=== PATIENT | female | born 2000 | race Caucasian/White ===

== ENCOUNTER 2023-10-04 14:51 | Outpatient (OUT) | payer OTHER, SELFPAY ==
--- NOTE | 2023-10-04 15:00 | XR_ITS ---
The [address] [address] Patient Name: BARON JONES MRN: [id number] date: 2000 Sex: F Assigned Patient Location: [facility] Current Patient Location: Accession/Order Number: [id number] Exam Date: 10/04/2023 15:05 Report Date: 10/06/2023 06:30 At the request of: CRISTI BARNETT Procedure: XR foot LT min 3V PROCEDURE: XR foot LT min 3V HISTORY: Cellulitis L03.90 COMPARISON: None. FINDINGS: BONES:No fracture, acute abnormality, or significant arthropathy. SOFT TISSUES:Mild distal dorsal soft tissue swelling. EFFUSION:None visible. OTHER: Negative. XR/XR foot LT min 3V IMPRESSION: 1. Mild soft tissue swelling of uncertain etiology. 2. No acute or suspicious bone abnormality. Electronically authenticated by: ARMANDO SCHMITT Date: 10/06/2023 06:30
== END 2023-10-04 14:52 | disposition home or self-care (01) ==
LOC: RAD 14:55
PROVIDERS: PCP Family Medicine; Visit Provider Family Medicine
DX: L03.90 Cellulitis, unspecified (principal)
CPT/HCPCS: 73630

== ENCOUNTER 2023-11-10 10:12 | Outpatient (OUT) | payer OTHER, SELFPAY ==
--- NOTE | 2023-11-10 10:17 | XR_ITS ---
The [address] [address] Patient Name: BARON JONES MRN: [id number] date: 2000 Sex: F Assigned Patient Location: [facility] Current Patient Location: Accession/Order Number: [id number] Exam Date: 11/10/2023 10:20 Report Date: 11/12/2023 03:15 At the request of: CRISTI BARNETT Procedure: XR foot RT 2V EXAM: XR foot RT 2V HISTORY: Right Foot Pain M79.671 COMPARISON: None. TECHNIQUE: AP and lateral right foot x-rays. FINDINGS: No acute osseous, articular or soft tissue abnormality is seen. Bony mineralization is normal. There is no degenerative change, inflammatory arthropathy, soft tissue gas or foreign body. There is a nonspecific 1.2 cm sclerotic lesion in the first distal phalanx which appears nonaggressive and may reflect a bone island or other benign lesion. There is developmental fusion of the middle and distal phalanges of the fifth toe, a normal variant. XR/XR foot RT 2V IMPRESSION: No acute right foot findings. Electronically authenticated by: SAROJ ADAMS Date: 11/12/2023 03:15
== END 2023-11-10 10:13 | disposition home or self-care (01) ==
LOC: RAD 10:12
PROVIDERS: PCP Family Medicine; Visit Provider Family Medicine
DX: M79.671 Pain in right foot (principal)
CPT/HCPCS: 73620

== ENCOUNTER 2023-11-11 21:44 | Emergency (ER) | payer OTHER, SELFPAY ==
--- OUTSIDE RECORDS SUMMARY | 2023-11-11 21:59 | XMS_ITS | CCD ---
Author Organization [facility] Care Team Providers Care Appointment Setter Name Role Phone No, Physician Unavailable Unavailable NO, PHYSICIAN Unavailable Unavailable MILAGROS LIU Unavailable Unavailab le NO, PHYSICIAN Unavailable Unavailable SAROJ HARRIS Unavailable Unavaila ble Unavailable Primary Care Provider UnavailOSMANI Simmons Attending Unavailable Cristi Esteban MD Primary Care Provider VITA BALLESTEROS Attending Unavailable CRISTI ESTEBAN Primary Care Unavailable VITA BALLESTEROS Referring Unavailable CRISTI ESTEBAN Referring Unavailable CRISTI ESTEBAN Primary Care Unavailable VITA BALLESTEROS Attending Unavailable Cristi Esteban MD Primary Care Provider BRANDI MCNEILL Attending Unavailable CRISTI ESTEBAN Primary Care Unavailable ANIBAL Rush, DR COLIN Admitting Unavailable ANIBAL ., DR COLIN Primary Care Unavailable ANIBAL ., DR COLIN Consulting Unavailable ANIBAL ., DR COLIN Attending Unavailable ANIBAL ., DR COLIN Primary Care Unavailable ANIBAL Rush, DR COLIN Consulting Unavailable ANIBAL ., DR COLIN Attending Unavailable ANIBAL ., DR COLIN Admitting Unavailable DR ARMANDO SCHMITT Consulting Unavailable ISAC SETH Attending Unavailable CRISTI ESTEBAN Primary Care Unavailable WILY Knott Attending Unavailable WILY Knott Admitting Unavailable Allergies Allergy Classification Reported Allergen(s) Allergy Type Date of Onset Reaction(s) Facility (6 sources) Cephalexin; Translations: [CEPHALEXIN] Drug Allergy 8 Unknown [facility] (1 source) No Known Medication Allergies; Translations: [No Known Medication Allergies] Propensity to adverse reactions to drug (disorder) [facility] Repository Medications Current Medications Medication Drug Class(es) Dates Sig (Normalized) Sig (Original) diclofenac sodium 75 mg delayed release oral tablet (2 sources) Nonsteroidal Anti-inflammatory Drug Start: 07-11-2021 take 1 tablet by mouth twice daily diclofenac EC [address] tablet Take 75 mg by mouth 2 times daily. 0 07/11/2021 Active ethinyl estradiol 0.02 mg / norethindrone acetate 1 mg oral tablet (3 sources) Estrogen Start: 07-05-2021 take 1 tablet by mouth once daily norethindrone-et hinyl estradiol 1-20 MG-MCG tablet Take 1 tablet by mouth daily. 0 07/05/2021 Active Start: 02-22-2018 take 1 tablet by jack th once daily JUNEL , 1-20 mg-mcg per tablet Take 1 tablet by mouth daily . 4 02/22/2018 Active fluticasone propionate 0.05 mg/actuat metered dose nasal spray (2 sources) Corticosteroid Start: 12-26-2017 fluticasone (F LONASE) 50 mcg/actuation nasal spray 2 sprays by Each Nare route daily . 0 12/26/2017 Active levoFLOXacin 500 mg oral tablet (2 sources) Quinolone Antimicrobial Start: 04-05-2018 End: 04-10-2018 levoFLOXacin (LEVAQUIN) 500 MG tablet Take 1.5 (one and a half) tablets (750 mg total) by mouth daily for 5 days . 5 tablet 0 04/05/2018 04/10/2018 Active Start: 04-05-2018 End: 04-05-2018 levoFLOXacin (LEVAQUIN) tabl et 750 mg meloxicam 7.5 mg oral tablet (2 sources) Nonsteroidal Anti-inflammatory Drug take 1 tablet by mouth once daily meloxicam (MOBIC) 7.5 MG tablet Take 7.5 mg by mouth daily . Active phenazopyridine hydrochloride 200 mg oral tablet (2 sources) Start: 2017 End: 2018 take 1 tablet by mouth three times daily phenazopyridine (PYRIDIUM) 200 MG tablet Indications: Urinary tract infection without hematuria, site unspecified Take 1 (one) tablet (200 mg total) by mouth 3 (three) times a day for 10 doses . 10 tablet 0 04/02/2018 04/06/2018 Active sulfamethoxazole 800 mg / trimethoprim 160 mg oral tablet (2 sources) Dihydrofolate Reductase Inhibitor Antibacterial, Sulfonamide Antimicrobial Start: 2021 sulfamethoxazole-trim ethoprim 800-160 MG per tablet take 1 tablet by jack th twice daily sulfamethoxazole-trimethoprim (BACTRIM D S,SEPTRA DS) 800-160 mg per tablet Take 1 tablet by mouth 2 (two) times a day. 0 Active tiZANidine 4 mg oral tablet (4 sources) Central alpha-2 Adrenergic Agonist Start: 07-11-2021 take 2 tablets by mouth at bedtime tiZANidine 4 MG tablet Take 8 mg by mouth at bedtime. 0 07/11/2021 Active take 1 tablet by mouth at bedtim e tiZANidine (ZANAFLEX) 2 mg tablet Take 2 mg by mouth at bedtime. 0 Active tiZANidine (ZAKIYA FLEX) 4 MG tablet Take by mouth 3 (three) times a day . Active Completed/Discontinued Medications Medication Drug Class(es) Dates Sig (Normalized) Sig (Original) ciprofloxacin 500 mg oral tablet (2 sources) Quinolone Antimicrobial Start: 04-02-2018 End: 04-05-2018 take 1 tablet by mouth twice daily ciprofloxacin HCl (CIPRO) 500 MG tablet Indications: Urinary tract infection without hematuria, site unspecified Take 1 (one) tablet (500 mg total) by mouth 2 (two) times a day for 3 days . 6 tablet 0 04/02/2018 04/05/2018 Discontinued 1 ml ketorolac tromethamine 30 mg/ml injection (1 source) Nonsteroidal Anti-inflammatory Drug, Cyclooxygenase Inhibitor Start: 04-05-2018 End: 04-05-2018 ketorolac (TORADOL) injection 15 mg Sodium Chloride (1 source) Start: 04-05-2018 End: 04-05-2018 sodium chloride (PF) (NS) flush 5 mL Problems Active Problems Problem Classification Problem Date Documented Date Episodic/Chronic Spondylosis; intervertebral disc disorders; other back problems (1 source) Degeneration of lumbar intervertebral disc; Translations: [Other intervertebral disc degeneration, lumbar region] Chronic Spondylosis; intervertebral disc disorders; other back problems (1 source) Low back pain; Translations: [Low back pain, unspecified back pain laterality, unspecified chronicity, unspecified whether sciatica present] Episodic Urinary tract infections (6 sources) Urinary tract infectious disease; Translations: [Urinary tract infection, site not specified] Onset: 04-02-2018 Episodic Viral infection (1 source) Disease caused by 2019-nCoV; Translations: [COVID-19] Episodic Past or Other Problems Problem Classification Problem Date Documented Da te Episodic/Chronic Abdominal pain (2 sources) Flank pain; Translations: [Unspecified abdominal pain] Onset: 05-10-2022 Episodic Calculus of urinary tract (1 source) Calculus of kidney; Translations: [CALCULUS OF KIDNEY] Onset: 05-10-2022 Episodic Deficiency and other anemia (1 source) Anemia, unspecified; Translations: [ANEMIA UNSPECIFIED] Onset: 03-23-2022 Episodic Diabetes mellitus without complication (1 source) Other abnormal glucose; Translations: [OTHER ABNORMAL GLUCOSE] Onset: 03-23-2022 Episodic Genitourinary symptoms and ill-defined conditions (4 sources) Dysuria; Translations: [DYSURIA] Onset: 05-08-2022 Episodic Other nutritional; endocrine; and metabolic disorders (4 sources) Abnormal weight loss; Translations: [ABNORMAL WEIGHT LOSS] Onset: 03-19-2022 Episodic Other nutritional; endocrine; and metabolic disorders (1 source) Underweight; Translations: [UNDERWEIGHT] Onset: 03-23-2022 Episodic Results Test Name Value Interpretation Reference Range Facility Coding Summaryon 10-06-2023 Coding Summary HTMLBase 64 ViozkmyqWEs7eWq+PGhlYWQ+PE 6ZZUHmX74awEBrmJ7dP1HVTFvR LeuxHKWPUQaZSrUlyeXvEC5maG NjZXJu IC8+DW3nUILdZjalnZFxd4C8sG N3N35tst3bNNrurKF5IRUvWqFl wahka9wtrSn7ZLyxKumtNfMt DOPqgR00KCB4cX78Fk34gUWnkI Jne9gdlOz0OyPrTQDwMJF9rBev MAlho3XjSSNsO88iaBYyi2P3 FDBbeJllgSNoUjKaoZX4pG3eYO fehyyiy8unuovzWvf4fi84gECa i8X3xQC4S0YfbcU8SYNbnVGa ZzrulPIBeZ2mdjyoo6qusaodSt EjBXOzXNz8MRu5VHQhbAieWbHt EV82OOO4OCWnfoBoV3IoOYQr gOgjJiA1q5T3Di3CW5MTAoskR1 VNTUFSWTwvdGQ+QB00mk51I8Ma NfbcKqt0RGGbWMQ8bNA8oU0s IQVvZCkvp2F0hKM0W2AdxbWfbd 1ow6taOYDmFOwaX72seAHth5R1 EDWwhPT7FSGsfUnvSbXwuK84 Oyc+TGOpvGozp5YwXatcg5xgl8 bxfLk5CuvtLTWuppWwaFipUDZ0 i5YaVi3gZZMikZZ6iTS3tG4y WgMoLyA0TLozS819NiGnpLQzWz aaN86zI8BjmGL+GHCpAdz2AOHw nDbtIM9uG7MkSXAoduueyGJm pSvkBD1rCMDruqlsEBYzxL1fVN VzQ6a5CtGoDpW8KPrmZ3RpJSLk anscGh68zR5mHxPuUrF3DKnn X1YhvsM4LGJexINnSYpvJKG2X3 0nh1I0MPWwQWUzDCI6cDH5fO0o bGlnbjogbGVmdDsgdmVydGlj QXsiQLvlW767ADVmaQyvXmYzUG luZyBEYXRlOiAgMDcvMDMvMjAy NDwvdGQ+GPRsFQS0zRepCHNy oCPmFJwgNx4nnMzvdZfdFS8cOL OgznfyAUBwfS8zWBPwpZTaaCfk ND8dCOLjkgvdi397BsPbJBY8 MYHziSDhE7RxuK7gEtHcAREuIW ErN5EdwKBbENqiT576ASynHwE6 AFCitvXwR6EqLVJxxGkzQsY6 h4Q3Wu6Hb2ShpilzT6CcoBTwHm EiUljdBBm7D9SyEfzabSO+PC90 HRBgDT21KWr9ZRH0tGusBFrj GRHoQ2WefQ8qOrOnVAJdCOCzVr c+PHRhYmxlIHdpZHRoPScxMDAl VrByfAecYU4sBz0oOZXiGKHe pMbiiKDeXeGtj1hvVZWgNAxbCU 3nrQtnJ8NtaKD8GBZvh4i2Jz82 M95fA8EdxFZ+MFSzhWQ5aRN9 kJ7fUgPsDbL4HJovP452RpJbjV AxHhcui0jjk9xkdYi0UqT4YKOg pqHilTpnOLX5w7ZbXg74A40j IHdpZHRoPSIxNSUiIHZhbGlnbj 6mrV6uMi1+FLJyqUK8hTZ2kE1k BqSxKqF7PMbcX689UgMxbWYl Qhmbd5cwo3iqrJr1YoRtIDNqyc OhfZkkJHD0f7HjVf06S2LifXcc f0PgVhx2dw47nMSkh0O9zQV0 W1LmAQCnbscyoIGxnIrvMD7rQP GefslkBQZksK8uBDPlS6u7BaYu CwJ5HEsiQ8WguyE3NXPgcJTo CFKjlAWUnJ2vzrbkc4yragokZx PbQGJqRFy8WPl3VJAheRuyWhDk MLK1AoF0GHT3kLIueA0xiTpi eyucaN2jFxv+GZB4jOSijZSCRN 1lOjwvdGQ+SACnUWZ3cDzjWJza XMSntE0wESKuJ3z8ZeBzPlX8 URjpI1LjfmO6QHXzfXBqZWEqoQ PDmW4mlcbxx4vltmfeWlMiXWJm YOo5FCl1GJDagNmoCfQrDBA8 LpT5NTA6xPOoxZ4esTwimvwbbU 9wOyc+WlymhRhvRIC6DDq5G4Rk Rin3ZXJbdWjdDC4fqZNyHKqs Vr3jdLsomUgbRP2aFCKpxybrk5 80IuCca5tzBNTmdXEaEWamJUK0 U21ms6E3ICFtLMTfWZK3pDG1 aI7vrFwfapgmvMHyuZaxulWnoE zjCXjuZIroO607HDBikQzdMmLz TXw3M6UvKzm4VSRutAfsKV1q wVJvYMkcBx9alSqsnUyoGY3nCS Jvgppkl912YfGxd2tbKIMslMLo PFrqARM5P11sj9L7WECrDKWz TZO7aBM2bT4jaHbiygerbMFpaA mebvUrmOluHXyqVWnbD177JOUt rHojVtTmkXy0B3XhJsv8QWHf sEviUO0ojGFnTQkuEe4pvOupgP wzSU4xMOYylsnny526RtEuk7sa OBChsNBjMIibFDI6C75zv2W7 DWRfEFZrVNU0bNE1wE1ciCwjzk ogbGVmdDsgdmVydGljYWwtYWxp F408KNEvwWwlUfQswKvbjcHu GMolNEv2W4KgJwxisPF+PC90YW MxSG11iMPhnJVik1vedSd3DdUc YJTxQMD9gDnpUPooj9LhKUAi H86yeYBxp2L1JVOsfRbhfRPsKr WqpCH7uO4hQElfoaube2etranb Adxri1jhno17qJ82U75wDCwl RWJjTVPeVTJpCYHygYhibk5ifU 9wIi8+MODfdRM5tEM1jT2kXZOm CfB8DTlyY797PaQfkGWkMdfy s6nvo6xtxYf1BnR1TXQvzwXijA kwCUK6h1DcEx16T35sPZegZEUw NRYhOWEuRQKzaBdfya3xiW8g Ii8+CWSdpBY0nOD8aZ0xVwDqLc L9XIqeL653RwBjqBEzMzsqX75i H5XkoEK+GOJpFau3YTOflNcn IS4rxEWyBBplOr4sBCC3YrXdYx AzASxyC5PkJXXwrkkoqaojkPQ5 LQFhSCNbpJ24Hj1xfBgyQSLm nCNIdU8zrebhl2tqlzvqQnDsBR PaRNq9RLg6BOFpnCqiTrIfRGY4 QnO4QKK2rFXgmZ6hiPmuzlqr dP9pK3ZrDQTkuozeAv81gN3jVm OyEcA8PLzjKdq+I8JHC4FNAJil Fo9VUPTBHa64X0YeQwk4YPDr pBkyMT4mkQZsNQdwRr5uyLvfeK ejBN3yTTTzsoboOHTxlI5qTVGs dETshMppGX9aQBHadtwip373 HfExEGC0NKTrxHAoM5FbfW5vYv VfKYWmEABgJ3OioVCbCSrbT866 IImeMcD7TYIqlmWuQ4VxXAYj nLxdPjF5e9B3Ee4iQo5xXN0mYO h2BY54QV75dZOaf6X1zYZ5L4Vb VZJhdiqzwjrczIN1HVJmCVEd rW59pNPsDXxlYm3ls2C9x146HX LeGYTomW25Us2xwYnnZJCjnINB hM7upcrnp2itimdbKmOiRXOf ELb3ZRo8NKYplGspMaQrMGB1Ja A3SOE4bKYcpH1quCifqqlbhG1r Oyc+XdYlMCUergS9V9SeSkv3 MVXmnJsgMH7jpGWcRGxoNb4lcD cdkPncAB7mAHRlphyoFORysL5n QCGfsPBpfDfqMN5dDMGuuuxc x285OnKyEPK0FUHscXEsH8CvoA 2sPiVfXRByBQUmC8ZoqJCtLTum M762WSfmHtU4LXPindFrP8Qk WGDmkEjlKiB6m6J1If5KNQ3YNQ W2D2QcMjp7PGPzbEjyZS0bkRQb RYncWq3dpFunvRnwZS6pPAUe ugxqLFVafQ7yDVSxmGJkhMvqBF 6xFXXuouuwc810RiLiAJP3GUCt qITfQ1NnlW3hOmLlDNYvITWi A8LmbQEjVDhiN154QUdiZkU5IL DxgxRqI9XmBWUtcHikErS9f0T1 Ml7YHZdmwHI+ZS21or86Y4Zk EdkrZfb5NADdMKR2fBX7aE0eIE ZaPIxng4G9iDA3W5QycoQxuy8u h4njMEJgQEtiW75fkOWrl6A6 ZGSffBI4KOCkaUnfCqZnbY42Ik c+RMNbwMzdg6SpJbhjl7ojy4un mWl0MnRlJMXezvMqnUqqNKL7 o9HxZu50S62xGKqnLQLvRBKuFY IaXUQgvPxusx4sjR8rYt9+PGNv jGZ9vOU5qU6sLqRpVmO1ACmb K167XlBzmUScUnter6cah5nxiP h9KlMlTWDmvxVtmWbsCQT1s1Ct Sk89X5EhbVgrp2IaRsg9af00 dDJyh7G9oFA3W8JoMPDfcicvmS StaYxmTC1jVBWdycfiPTUxkN6e TXMzS6p2NgHuVfC6TZruG7Oy bnQ9TODsaBCjRCKdpKYPeD5kdt wam4hcaybgGaUyTABzXYs0GSz9 BAJxkZpwVzTcAWH0PbU8NVA5 pKRmaD4cyYlgqxwizG6yWsz+UG d2t4wyuUKtES3msBE8YB31HA43 sSBvi8F5lSP2I2XcORObvgdq fdttiYD0PKTrFLHmgI00Cu3gtQ cqAp6fJQYvQJI8LWYdsZHwM1Fs aQ9mUrGgLUVqXAPqW7DwrHMl ZOglT163EUedNtJ5MAXsmgYdZ7 ZkNLRncJyoCpC2k2N3Ru1FYY05 WI67KL49yVPba3J5sWF0V3Oe LWBedumlbwhjpFV7YGTkWFYtjS 13Mb6pfUxkWt6lFMGuYBB5AYYl sMIdY2OomL5tIkGxYJSgOBFu D7ZhdBAtFAgyW025ULhhJlJ4FG LmvkBcB5HyCAZzaUekVeO4q2P7 Oa6ORl32JI81DB30zCRwm2M6 gCL1K5EoQGCooigujbdlsXL1LG CpBXJyfD00Ep5owPqgTp5gOYBo OGF5AJXniNKqR2KwgV6pIoSf EOFzAFUuG0MwkEJmFXueP100VW gkDwC1CAGhwuDwW8UoXFDqwOiy YpX2j4F3Ud3PLRagoez4U1Tx PjwvdHI+CH28EGWlWS94iARdwK Zrp9nfyUm1XkYsDARyZLF6fZtc XSams9HqNTAgM13msCQvt5U1 IGN (more content not included)... Normal [facility] Wound Cultureon 09-24-2023 Wound Culture Light growth of Pseudomonas aeruginosa and Moderate growth of Staphylococcus epidermidis Normal skin blayne isolated No LATASHA performed on this organism 2+ Gram Positive Cocci Rare White Blood Cells ORGANISM PA SUSCEPTIBILITY ORGANISM ID: 1 ANTIBIOTIC INTERPRETATION LATASHA STATUS ORGANISM PAPA Amik S <=16 Verified Amox/Cla >16/8 Verified Amp R >16 Verified Amp/Sul >16/8 Verified Azt S <=4 Verified Cefaz R >4 Verified Cefep S <=8 Verified Cefo 16 Verified Ceftaz S 4 Verified Ceftri 32 Verified Cefur R >16 Verified Cipro S <=1 Verified Ertap >1 Verified Gent S 4 Verified Imi S <=1 Verified Levo S <=2 Verified Nitro >64 Verified Pip/Raad S <=16 Verified Tetra >8 Verified Tobra S <=4 Verified Tri/Sulf >2/38 Verified Normal [facility] Comment on above: Performed By: #### [id number] #### [facility] (DEFAULT) [address] [place] [id number] ED Clinical Summaryon 2023 ED Clinical Summary [facility] ? Urgent Care [address] [place] [address] Clinical Summary PERSON INFORMATION Name: BARON DE LEON Age: 23 Years Sex: FEMALE : 2000 MRN: Acct#: Visit Reason: UC - Laceration; LT FOOT LAC Arrival: 09/22/2023 09:25:10 Discharge: 09/22/2023 11:22:00 LOS: 000 01:57 Check In: 09/22/2023 09:25:10 Checkout: 09/22/2023 11:22:00 Address: [address] [place], [place] [id number] PCP: CRISTI ESTEBAN PROVIDER INFORMATION Provider Role Assigned Unassigned Pelon ELI, [place] ED Nurse 09/22/2023 09:30:47 Roxana Knott-New ED PA 09/22/2023 09:32:54 VITALS INFORMATION Vital Sign Triage Latest Temperature Tympanic Temperature Temporal Artery Pulse Rate O2 Sat 100 % 100 % Respiratory Rate Blood Pressure /72 mmHg /72 mmHg MEDICAL INFORMATION Medications Given: Medication Dose Route bacitracin topical 500 unit(s) Topical tetanus/diphth/pertuss (Tdap) adult/adol 0.5 mL Intramuscular Allergy Information: No Known Medication Allergies PHYSICIAN DOCUMENTATION DISCHARGE INFORMATION: Discharge Disposition: Home Discharge Location: Home PATIENT EDUCATION INFORMATION Instructions: Nonsutured Laceration Care; Antibiotic Medicine, Adult; Probiotics Follow-Up: With: Address: When: [facility] [place] [address] , only if needed Comments: The Urgent Care Center is open from 9am to 8pm daily. We are closed on , and . With: Address: When: CRISTI ESTEBAN [address] [place], [place] [id number] DIAGNOSIS: 1:Laceration of left foot without foreign body Patient Understands: Yes - Patient/family/caregiver verbalizes understanding of instructions given Comment: Normal [facility] ED Patient Summaryon 024 ED Patient Summary [facility] ? Urgent Care [address] [place], [place] [id number] PATIENT DISCHARGE INSTRUCTIONS Patient Information Name: BARON DE LEON Age: 23 Years Date of : 2000 Reason For Visit: UC - Laceration; LT FOOT LAC Arrival Time: 09/22/2023 09:25:10 Primary Care Physician: CRISTI ESTEBAN Attending Physician: Roxana Knott PA-C Comment: Patient Education With: Address: When: [facility] [address] [place] [id number] , only if needed Comments: The Urgent Care Center is open from 9am to 8pm daily. We are closed on , and . With: Address: When: CRISTI ESTEBAN [address] [place] [address] Nonsutured Laceration Care A laceration is a cut that may go through all layers of the skin and into the tissue that is right under the skin. A laceration is usually stitched up (sutured) or closed with adhesive strips or skin glue shortly after the injury happens. However, if the wound is dirty or if several hours pass before medical treatment is provided, it is likely that bacteria will enter the wound. Closing a laceration after bacteria have entered it increases the risk for infection. In these cases, your health care provider may leave the laceration open (nonsutured) and cover it with a bandage (dressing). This type of treatment helps prevent infection and allows the wound to heal from the deepest layer of tissue damage up to the surface. Nonsutured healing is also known as secondary wound healing. This is more common for wounds that involve loss of tissue, are irregular in shape and size, or are on surfaces of the body where movement makes sutures or other closure methods impossible. How to care for your nonsutured laceration Follow instructions from your health care provider about how to take care of your wound. ? Keep the wound clean and dry. ? Change any dressings as told by your health care provider. This includes changing the dressing when it starts to smell, or when it gets wet or dirty. ? Clean the wound one time each day, or as often as told by your health care provider. To clean your wound: 1. Wash your hands with soap and water for at least 20 seconds before and after touching your wound or changing your dressing. If soap and water are not available, use hand mechanical tech. 2. Remove any dressing as told by your health care provider. 3. Clean the wound with water or irrigation solution as told by your health care provider. 4. Pat the wound dry with a clean towel. Do not rub the wound. 5. Apply a thin layer of antibiotic ointment or another topical ointment to the wound as told by your health care provider. This will prevent infection and keep the dressing from sticking to the wound. 6. Apply a new dressing as told by your health care provider. ? Check your wound every day for signs of infection. Watch for: ? More redness, swelling, or pain. ? Fluid or blood. ? Warmth. ? Pus or a bad smell. ? Do not take baths, swim, or do anything that puts your wound underwater until your health care provider approves. ? Do not scratch or pick at the wound. ? Do not usedisinfectants or antiseptics, such as rubbing alcohol, to clean your wound unless told by your health care provider. Follow these instructions at home: Medicines ? Take [id number] and prescription medicines only as told by your health care provider. ? If you were prescribed an antibiotic medicine, take or apply it as told by your health care provider. Do not stop using the antibiotic even if your condition improves. Managing pain and swelling ? If directed, put ice on the injured area. To do this: ? Put ice in a plastic bag. ? Place a towel between your skin and the bag. ? Leave the ice on for 20 minutes, 2?3 times a day. ? Remove the ice if your skin turns bright red. This is very important. If you cannot feel pain, heat, or cold, you have a greater risk of damage to the area. ? Raise (elevate) the injured area above the level of your heart while you are sitting or lying down. General instructions ? Avoid any activity that could cause your laceration to reopen. ? Keep all follow-up visits. This is important. Contact a health care provider if: ? You received a tetanus shot and you have swelling, severe pain, redness, or bleeding at the injection site. ? Your pain is not controlled with medicine. ? You have any of these signs of infection: ? More redness, swelling, or pain around your wound. ? Fluid or blood coming from your wound. ? Warmth coming from your wound. ? Pus or a bad smell coming from your wound. ? A fever. ? You notice something coming out of the wound, such as wood or glass. ? You notice a change in the color of your skin near your wound. ? You develop a new rash. ? You need to change the dress (more content not included)... Normal [facility] Coding Summaryon 10-19-2022 Coding Summary HTMLBase 64 YljqjeclPAi7iNd+PGhlYWQ+PE 6WIXDwQ95ynUIayO9mZ0PRGZoC LimbBPHDXRoBYiSltbCmSY5ftG NjZXJu IC8+IU0oPRQqCdjfrEYwi3G1sJ R0N72bjs0nDIrsvOL4MWEgNyGi myjug4rveNu0YHuaUgwqTeJn NGQugC76SWK5dP77Em74qPUvrG Yxy3rsjNu5VtOrWNSzQBA0cGpr GXvma1SuXJDsP79whHNxe4M2 HWVqsWlnrUUgQxHxpYD0dK9kXN dkzslnl0qwkbrpYle6pv47jWEx e8I4aCJ1L1UapnZ1IRXqoYEw RecngBWBfC0rxermi4ldbmmgLl JoCGDdAIf3PDb6YWItgIjxAvSe XV13OFJ6OOXydeYsS5MuZGYt bEevYyT7o2I3Ps7TB8DTHwtpA3 VNTUFSWTwvdGQ+IN28ln25O8Om XzhsTaa7FUPgUQE7oFY0wP2g IUPkUIvoq8D9oHC7F6EnrfPhqq 5jl6oxGBJbYHstX39tiEBpe1R2 ABNzrJS4TUNdmUbdHtIrwW98 Oyc+UJPdxPnln3XpRufre2nkx6 gtoCv7QbdxTYKrmlWmpMaqOYV3 g5LsBm9rSXMscDZ4uVQ8cP3j FsTfTlU9TXitA489VwYdsAHkSr rzY98zC2HeaOP+RYPpEec9WWFn dCkoPM2sP5ChMNVykzdtaODt gCdpAV8cDLVqjnutNFAfnO8zDU QrX2e1CdOtDuM4DMmhO2SbENDc afkxZj55eL4bOnWmKmQ3QJpi V9SbkqI9MSChzYIcBEpgWEO7Z1 3pq6F6HVAjLFOuXYA8hLR4jB0f bGlnbjogbGVmdDsgdmVydGlj JVcoHPqyV678BIZonLgzWzSbHV luZyBEYXRlOiAgMDcvMTcvMjAy MzwvdGQ+TIJcALF1dVsjVYFb zUAaVYdqIy9tgFhhuGstWS9lXW OhhlkoTLUdjO2eIQDnhFXkuWev SG0cHNTcdxvav588QuObCVL9 XXSgsXWtW0BkcH2sFpBaSLMtVI JxQ3YziVFsJHqkF752JWswDqA2 GQVqmlVkU5WfIHUuvJotDfF8 y3E2Hf7Iz2HnjevnA8SqeQDaDc SmOeojWTi9G7PlYokzqNA+PC90 YKTsPV79BUb1ZFY6fZdgDUlu UCVaG6BguV2tQrStRRYlVMSwOg c+PHRhYmxlIHdpZHRoPScxMDAl WeVvlPusMO7vCs2qTEGpZNHr cGhgbWQbXuUzk0egNWHjXMdeRW 7gpCogY5GrmRL6URDxd5u1Vu01 Y55kU9ZxnDI+HGCfdBE2jOT7 jE2rQjQxYdL9PJanG206RiQnkA YpNrtzv6pes3tcjJs2OwE4CQNz lpSrdLanSVV9n1DuBt44E12g IHdpZHRoPSIxNSUiIHZhbGlnbj 0xhP8lNq8+YJLeiAI7vQF1yQ6v PuXcGnK6TVmxM790PaJgwYVz Mqjhx8rbt0qvfEw5CxFwFODyxo IaqMpbXVZ8s1SoCz57Y0EdcTxk f2LoEbh4xb88xZHlh7V1gJW9 G2GsSOMufaxdoFQdjKbiVQ2hZJ UgkqmrFIDgeA0gNZJaE2i6RfRt ZrY3BEfzQ4GeskV9JVMsyYHt PLQuoGQDyR7pslrpl1zhnqubMg MfKLTiFDv1FRl4DURodEahGxGl FIP9JjW1YSU4kWShcU2rzJig gocnuK1cAdk+UYX5sMWvjFBHMR 1lOjwvdGQ+LXJaEPY0gHthXYzo TNVrsF2zUTZxN2p9RnAlOeO0 TKnjM4WvtdS5KNIqxJLvUUIecL XEzM7mpeprw4djlrenRbIyEEHx MOw4AZu8AAHebSrfPeHzADJ7 XnP3JOL5nEJpxN1qzDnlcvionM 9wOyc+HuqrhSwxGAX8DMp4Y2Pc Cfy3LWZpzWcnVF5auZLrAGyx De4kqOizkCaxUA3tLAWasgidb8 72TpPqn3gcHILrvEBvPZerRVU1 L25vt5N2RXCyHWGoIEY3uHO2 iJ6acApwkfjfsNZglAszqaLiqD pmXIhqKVviY594GBCsiFjfMlPm RBm9E2BgZzv8WZMecWzsFK1o qGZrDGicCf0zaJnkqXjrKT9ePW Pezdsir982YyHtc5yaRVBonXPh LNffGSY3Y39hb5H0DTDoGNFt DAZ1zQB0dV8fbQhejkvjbPPilG wyxaCapTtzADfvJEfbF633BPAn lKngAsHsdPd5W8IzFdq7TMCj nCpvZV3gmXBbZHxpOf7ngLedjV ntRK0sGMZvshciz116MoXjh1fh XVBvsCInSMchBES3C09bu9N6 ZWYfLHTwXCK7tCD7pK4alHxhwe ogbGVmdDsgdmVydGljYWwtYWxp O015KDNvlSssQkEibVsujeDp MCywATq9H6SySspbeGI+PC90YW IhLK72cSBwkHMwv2buvVk5IvYi RGTpEMQ7nLzpBVufq1RbJYQw W25cqPEmf6B7GZTbbSpdyCWjTr LonJI3jE0oEVbkzirda7kazgrq Hagos1hcji01fA60H74gZOfp NRQnJFWzQUToJBJtqFuanl6vbF 9wIi8+HPVwwZQ3pNY4qI7kYFNv WsO9LCqgN427NbYvpVUjAmba l4kol5kkcOl9IqV1NWHankMrgZ oiONR4h6YsOg70O01lCOoiYOCf CRZyRIAgCMFuxMumns0zzZ5o Ii8+URGqnQU6iKD9xD8zTtToLg M5ZBhgJ252UtQjtNFtJislR68a B3ZxgHT+UURnBqm7IAYfqFic PJ9khREgDXskLi0tKTL7HyKzSq AwCMshM6OdDLLmfhnreprhiNO8 UIHyYSIlgI14Vi6yjPzmHGKz vSAVhS1upwkae4jffwvyPvWlPU YcNLv0UDj8QHEwfPyuIuMeOJD7 NvZ0QGS6cRRyuB6bdFrpdlgd tW9oX7ImWZOfebxdEn49eZ9nBf IaCmF7KNarUnv+L6QFF2XKBYmg Io9MSCREYq22E0VzLsn8VOOv xIkiZT3tdHZhARyrSk6pvEgcuU wvDJ5iOAVdanhvZCKnjS2lWKDm vQDoeAkoYD6gFDOgliphl327 NpKqZCG0IORyoLRvC8HblL2tDl BtAOSgKBOiS2IqaPEfFAsnZ669 IWjkWlK3KSIripXqD7BdNYSh aFpkJuW5v5B2Rx0wNw1sDT8uZB j8KZ20CK42aSXhb1T3qCX1O2Na JHNrmqiqhdxqqVN6FJZxYFQr tI84nSEfBVpkUo4iy7K6h411UD HlUNQwiW42Sv2vjXsxXNKcwOLX zD8mmnzzk6teignwVoLmXBAa YPt5MLd8IPFpeDuxFaBrFPO3Hd T2FSE8gTAebR2syLtkrvecwH9x Oyc+QtFoOFThefU0F0CsSnz9 ASLldFyzAO4juJFiJTqlIw8lxR ytlGbxCX5wBCRingslMYRfrB6w MNElnWZbwGvdPG1pOBOufyvq k055AkOsPTY1QDMylLJzE0DegT 0aWgLgIPVmUGYgE9QqhQYoEPua P144LNpgExC6SFUkvrKkF2Jr JROycXtoAwB3z8U9As2FGM2NMY R1J7RwVgn7NSWnaDthTM5nnCUc NTmkBl5rgCignEblJL6oGNIu kghcHTFnyR2vLBEssCJhvPemWI 7eFUKpgdmoj388SkJwDPU1NQKc vHYcW8JkzG0hAjGqZYSbHPNe H3SghMKvCCfuQ342VNlxRtT2ZA HxphKjZ2TcILTkjGoeNuK2z3F9 Zt9AWXsysAR+YS58rb26S9Ew HxruMxo0YSFvOQO1tGE2lT8wNN SdOLtsz6K2kBL2I3GfmgPdmy0c w4czAOSgMPoeS76wkVNwx1B5 SWAttIS4VLMhaLalJnNbdV22Mx c+BPYroVvgd5AdHyjxq6olm1ax mXd6NrHjSKRoqbHscXugHRN3 l4YsPb90J94tHVieNYNvUFRwSK NsGDQkvBeest8stJ7aKt6+PGNv kKJ0aFE3lC5jMfErMvV7WQmv F062DkFhmXWvGdhyo5jil9rwxL q9XhVgOTOtksCktYyeDIX1i4Wp Nw64Z4MneUffa0MpQsb7ti92 gBSom2W4oFP4F8HkTXJyontsuJ ThkTsrIY6dXTWwtrgrMPLavY5q MHRjE0f9EtJvZhE0GOikG5Gu jjK7KROdeCZpDPInkHKMvH6adi wsv3vlskmpExCcGZOlMTd4OPm9 UAWxhXtoOmZtARG7EvL9VNC4 rJGcsH7ytYqtihnbuS7pBpx+UG b0j2vosWUkWW5yuGP9LO42HH85 jNBrw5A1wYJ6I0JnVGBmcyjh wecylDC5IPVzENCnnC77Nm7fqK qmMv5uIARoISV9BIGpwIOzR4Xa bV7nAlQhDILgKNOyB2QewOGd NTbzA991PLzlOnE9XQCgsrCnT2 DpZBLrbIgpTzE4a1E3Fs3UQH83 RP40ZT44lUHjz1O2zRH4K2Wr OGSqxwaoejafnWP7EPZbLNXouU 54Vb1jeObaOj7nSPFxWUZ2FDLy eTDeW9RcvU8vTcZcWWTeZKQx L7AucNDdXVpmP034ZVciKsG2VY AeheJmD1YaLMGgrFciJyW9m0X9 Ot3DCz14GZ23QX04rSLug5X7 eVZ0A4JyOHHwjotthhcxmLV2TK WtEHZgaG29Ui7soVjtAr9zOMQy PQG7ZUTbdFDgD4ZyfD6qHxVr UUZvVYTmC9EbzGObPKoeX208FO clSvX9FAPbfjDiR5WjAPZrtBdl TtD8w7U7Bw8KJFgzatl3W9Kx PjwvdHI+BC96MCZpXX59dMFwoX Lzb6xgsAx3JzByINQhIVD5oKng WDetn0SlRDPhB58pmXTnx4U0 IGN (more content not included)... Normal [facility] CULTURE URINEon 05-08-2022 CULTURE URINE Culture Observations : MODERATE GROWTH OF MIXED GENITAL BLAYNE. NO POTENTIAL PATHOGENS SEEN. Normal [facility] Comment on above: Performed By: #### U RCX #### [facility] [address] [place] [address] Mima Leon UA RANDOM W/MICROSCOPICon BACTERIA NONE SEEN Normal NONE SEEN [facility] Comment on above: Performed By: #### U AMIC #### [facility] [address] [place], [place] [address] Dr. Mima Leon Bilirubin Ql (U) Negative Normal NEGATIVE [facility] Comment on above: Performed By: #### U AMIC #### [facility] [address] [place] [address] [address] Mima Leon CAST NONE SEEN Normal NONE SEEN [facility] Comment on above: Performed By: #### U AMIC #### [facility] [address] [place] [address] Dr. Mima Leon Clarity (U) CLEAR Normal CLEAR [facility] Comment on above: Performed By: #### U AMIC #### [facility] [address] [place] [address] [address] Mima Leon Color (U) LT. YELLOW Normal YELLOW [facility] Comment on above: Performed By: #### U AMIC #### [facility] [address] [place] [address] Dr. Mima Leon Crystals LM Nom (Urine sed) NONE SEEN Normal NONE SEEN [facility] Comment on above: Performed By: #### U AMIC #### [facility] [address] [place] [address] Dr. Mima Leon Epithelial cells LM Ql (Urine sed) MODERATE Abnormal NONE SEEN /RARE [facility] Comment on above: Performed By: #### U AMIC #### [facility] [address] [place] [address] Dr. Mima Leon Glucose Ql (U) Negative Normal NEGATIVE [facility] Comment on above: Performed By: #### U AMIC #### [facility] [address] [place] [address] Dr. Mima Leon Hemoglobin Ql (U) TRACE-LYSED Abnormal NEGATIVE [facility] Comment on above: Performed By: #### U AMIC #### [facility] [address] [place] [address] Dr. Mima Leon Ketones Ql (U) Negative Normal NEGATIVE [facility] Comment on above: Performed By: #### U AMIC #### [facility] [address] [place] [address] Dr. Mima Leon LEUKOCYTES Negative Normal NEGATIVE [facility] Comment on above: Performed By: #### U AMIC #### [facility] [address] [place] [address] Dr. Mima Leon MUCOUS NONE SEEN Normal NONE SEEN [facility] Comment on above: Performed By: #### U AMIC #### [facility] [address] [place] [address] Dr. Mima Leon Nitrite Ql (U) Negative Normal NEGATIVE [facility] Comment on above: Performed By: #### U AMIC #### [facility] [address] [address] [address] Mima Leon pH (U) 6.0 [pH] Normal 5-9 [facility] Comment on above: Performed By: #### U AMIC #### [facility] [address] [place] [address] Dr. Mima Leon RBC 0-2 Normal 0-2 [facility] Comment on above: Performed By: #### U AMIC #### [facility] [address] [place] [address] Dr. Mima Leon SPEC GRAVITY <=1.005 Abnormal 1.005-<=1.025 [facility] Comment on above: Performed By: #### U AMIC #### [facility] [address] [place] [address] Dr. Mima Leon UA PROTEIN Negative Normal NEGATIVE/ TRACE [facility] Comment on above: Performed By: #### U AMIC #### [facility] [address] [place] [address] Dr. Mima Leon Urobilinogen Qn (U) 0.2 {Ami'U}/dL Normal 0.2 - 1.0 [facility] Comment on above: Performed By: #### U AMIC #### [facility] [address] [place] [address] Dr. Mima Leon WBC 0-2 Abnormal NONE SEEN [facility] Comment on above: Performed By: #### U AMIC #### [facility] [address] [place] [address] Dr. Mima Leon US KIDNEYSon 05-08-2022 US KIDNEYS EXAMINATION: US KIDN EYS HISTORY: Dysuria , frequent urinary tract infections, right flank pain COMPARISON: Ultrasound kidneys 07/22/2021 TECHNIQUE: Ultrasound examination was performed of the kidneys and urinary bladder. FINDINGS: RIGHT KIDNEY: Contains a nonobstructing 2 mm stone within mid body. No evidence of pelvocaliectasis, mass, or hydronephrosis. Normal renal cortical parenchymal echogenicity. Color Doppler demonstrates blood flow within the kidney. Kidney: 9.3 x 5.3 x 4.0 cm LEFT KIDNEY: No evidence of pelvocaliectasis, mass, or calculi. Normal renal cortical parenchymal echogenicity. Color Doppler demonstrates blood flow within the kidney. Kidney: 9.9 x 4.7 x 4.1 cm BLADDER: No visible wall thickening, mass, or calculi. IMPRESSION: 1. Nonobstructing right nephrolithiasis; less than seen on prior study. Electronically authenticated by: ARMANDO SCHMITT Date: 2022-05-08 11:27 Normal [facility] XR KUB 1 VIEWon 05-08-2022 XR KUB 1 VIEW EXAMINATION: XR KUB 1 VIEW HISTORY: Dysuria , right flank pain, frequent bladder infections COMPARISON: No relevant comparison available. FINDINGS: KIDNEY/URETER - RIGHT: No visible renal or ureteral calcifications. KIDNEY/URETER - LEFT: No visible renal or ureteral calcifications. PELVIS: No visible ureteral stones. BOWEL: No abnormal dilation or deviation. BONES: No acute abnormality. OTHER: Negative. No abnormal gaseous collections. IMPRESSION: 1. No visible urinary tract calculi. 2. Normal bowel gas pattern. Electronically authenticated by: ARMANDO SCHMITT Date: 2022-05-08 11:50 Normal [facility] CA 125on 03-20-2022 Cancer Antigen (CA) 125 32.3 U/mL Normal 0.0-38.1 [facility] Comment on above: Result Comment: CRESCEL Electrochemiluminescence Immunoassay (ECLIA) . Values obtained with different assay methods or kits cannot be used interchangeably. Results cannot be interpreted as absolute evidence of the presence or absence of malignant disease. Performed By: #### C A 125 #### [facility] [address] [place] [address] Dr. Mima Leon CA 19-9on 03-20-2022 CA 19-9 <2 Normal 0-35 [facility] Comment on above: Result Comment: CRESCEL Electrochemiluminescence Immunoassay (ECLIA) . Values obtained with different assay methods or kits cannot be used interchangeably. Results cannot be interpreted as absolute evidence of the presence or absence of malignant disease. Performed By: #### C A 19,9 ####[facility] [address] [place] [address]Dr. Mima Leon CEAon 03-20-2022 CEA 0.6 ng/mL Normal 0.0-4.7 [facility] Comment on above: Result Comment: Nons mokers <3.9 Smokers <5.6 . [facility] Electrochemiluminescence Immunoassay (ECLIA) . Values obtained with different assay methods or kits cannot be used interchangeably. Results cannot be interpreted as absolute evidence of the presence or absence of malignant disease. Performed By: #### C EA. #### [facility] [address] [place] [address] Dr. Mima Leon H PYLORI ANTIBODY IGGon 03-05 H. PYLORI IGG ABS 0.25 Index Value Normal 0.00-0.79 [facility] Comment on above: Result Comment: Nega tive <0.80 Equivocal 0.80 - 0.89 Positive >0.89 Performed By: #### H PYLLC ####[facility] [address] [place] [address]Dr. Mima Leon INSULINon 03-20-2022 Insulin 8.0 uIU/mL Normal 2.6-24.9 [facility] Comment on above: Performed By: #### I NSULIN #### [facility] [address] [place] [address] Dr. Mima Leon AMYLASEon 03-19-2022 Amylase [Catalytic activity/Vol] 90 U/L Normal 25-115 [facility] Comment on above: Performed By: #### C MP, TSH, T7, CYNTHIA, LIPID, LIPA #### [facility] [address] [place] [address] Dr. Mima Leon CBC AUTO DIFFon 03-19-2022 BASO # 0.0 103/ul Normal 0.0-0.1 [facility] Comment on above: Performed By: #### C BC #### [facility] [address] [place] [address] Dr. Mima Leon Basophils/100 WBC (Bld) 0.6 % Normal 0.2-2.0 [facility] Comment on above: Performed By: #### C BC #### [facility] [address] [place] [address] Dr. Mima Leon EO # 0.1 103/ul Normal 0.0-0.7 [facility] Comment on above: Performed By: #### C BC #### [facility] [address] [place] [address] Dr. Mima Leon Eosinophils/100 WBC (Bld) 1.5 % Normal 0.9-7.0 [facility] Comment on above: Performed By: #### C BC #### [facility] [address] [place] [address] Dr. Mima Leon Erythrocyte distribution width (RBC) [Ratio] 12.1 % Normal 11.0-15.0 [facility] Comment on above: Performed By: #### C BC #### [facility] [address] [place] [address] Dr. Mima Loen Hematocrit (Bld) [Volume fraction] 42.7 % Normal 36.0-48.0 [facility] Comment on above: Performed By: #### C BC #### [facility] [address] [place] [address] Dr. Mima Leon Hemoglobin (Bld) [Mass/Vol] 14.7 g/dL Normal 12.0-16.0 [facility] Comment on above: Performed By: #### C BC #### [facility] [address] [place] [address] Dr. Mima Leon IG # 0.01 10e3/ul Normal 0.00-0.03 [facility] Comment on above: Performed By: #### C BC #### [facility] [address] [place] [address] Dr. Mima Leon IG % 0.2 % Normal 0.0-0.5 [facility] Comment on above: Performed By: #### C BC #### [facility] [address] [place] [address] Dr. Mima Leon LYMPH # 2.9 103/ul Normal 1.2-3.8 [facility] Comment on above: Performed By: #### C BC #### [facility] [address] [place] [address] Dr. Mima Leon Lymphocytes/100 WBC (Bld) 47.6 % Normal 20.5-60.0 [facility] Comment on above: Performed By: #### C BC #### [facility] [address] [place] [address] Dr. Mima Leon MANUAL DIFF REQ NO Normal [facility] Comment on above: Performed By: #### C BC #### [facility] [address] [place] [address] Dr. Mima Leon MCH (RBC) [Entitic mass] 31.4 pg Normal 26.7-34.0 [facility] Comment on above: Performed By: #### C BC #### [facility] [address] [place] [address] Dr. Mima Leon MCHC (RBC) [Mass/Vol] 34.4 g/dL Normal 29.9-35.2 [facility] Comment on above: Performed By: #### C BC #### [facility] [address] [place] [address] Dr. Mima Leon MCV (RBC) [Entitic vol] 91.2 fL Normal 81.0-99.0 [facility] Comment on above: Performed By: #### C BC #### [facility] [address] [place] [address] Dr. Mima Leon MONO # 0.4 103/ul Normal 0.3-0.8 [facility] Comment on above: Performed By: #### C BC #### [facility] [address] [place] [address] Dr. Mima Leon Monocytes/100 WBC (Bld) 5.8 % Normal 1.7-12.0 [facility] Comment on above: Performed By: #### C BC #### [facility] [address] [place] [address] Dr. Mima Leon NEUT # 2.7 103/ul Normal 1.4-6.5 [facility] Comment on above: Performed By: #### C BC #### [facility] [address] [place] [address] [address] Mima Leon Neutrophils/100 WBC (Bld) 44.3 % Normal 43.0-75.0 [facility] Comment on above: Performed By: #### C BC #### [facility] [address] [place] [address] [address] Mima Leon Platelet mean volume (Bld) [Entitic vol] 8.9 fL Critically low 9.5-13.5 [facility] Comment on above: Performed By: #### C BC #### [facility] [address] [place] [address] Dr. Mima Leon PLT 257 103/ul Normal 150-450 [facility] Comment on above: Performed By: #### C BC #### [facility] [address] [place] [address] [address] Mima Leon RBC 4.68 106/ul Normal 4.20-5.40 [facility] Comment on above: Performed By: #### C BC #### [facility] [address] [place] [address] [address] Mima Leon WBC 6.2 103/ul Normal 4.0-11.0 [facility] Comment on above: Performed By: #### C BC #### [facility] [address] [place] [address] [address] Mima Leon FREE THYROXINE INDEX T7on FTI 3.59 Normal 1.30-4.50 [facility] Comment on above: Performed By: #### C MP, TSH, T7, CYNTHIA, LIPID, LIPA ####[facility] [address] [place] [address]Dr. Mima Leon T3U 37.0 % Normal 30.0-39.0 [facility] Comment on above: Performed By: #### C MP, TSH, T7, CYNTHIA, LIPID, LIPA ####[facility] [address] [place] [id number]. Mima Leon T4 [Mass/Vol] 9.70 ug/dL Normal 4.80-13.90 [facility] Comment on above: Performed By: #### C MP, TSH, T7, CYNTHIA, LIPID, LIPA ####[facility] [address] [place], [place] [address]CwDr. Mima Leon GLYCOHEMOGLOBIN A1Con 2021 ADA RECOMMENDATION SEE BELOW Normal [facility] Comment on above: Result Comment: ADA RECOMMENDED LIMIT 4.0 - 6.0 ADA THERAPEUTIC TARGET < 7.0 ACTION SUGGESTED > 7.0 Performed By: #### A 1C #### [facility] [address] [place] [address] [address] Mima Leon Glucose [Mass/Vol] 97 mg/dL Normal [facility] Comment on above: Performed By: #### A 1C #### [facility] [address] [place] [address] [address] Mima Leon HbA1c (Bld) [Mass fraction] 5.0 % Normal 4.5-6.2 [facility] Comment on above: Performed By: #### A 1C #### [facility] [address] [place] [address] [address] Mima Leon IRONon 03-19-2022 Iron [Mass/Vol] 115.0 ug/dL Normal 50.0-170.0 [facility] Comment on above: Performed By: #### I TROY #### [facility] [address] [place] [address] [address] Mima Leon LIPASEon 03-19-2022 Lipase [Catalytic activity/Vol] 176.0 U/L Normal 73.0-393.0 [facility] Comment on above: Performed By: #### C MP, TSH, T7, CYNTHIA, LIPID, LIPA ####[facility] [address] [place], [place] [address]AfDr. Mima Leon LIPID PROFILEon 03-19-2022 CHOL-HDL RATIO NORM SEE BELOW Normal [facility] Comment on above: Result Comment: 3.3 - 4.4 LOW RISK 4.4 - 7.1 AVERAGE RISK 7.1 - 11.0 MODERATE RISK >11.0 HIGH RISK Performed By: #### C MP, TSH, T7, CYNTHIA, LIPID, LIPA ####[facility] [address] [place] [id number]. Mima Leon Cholesterol [Mass/Vol] 168 mg/dL Normal <=200 [facility] Comment on above: Performed By: #### C MP, TSH, T7, CYNTHIA, LIPID, LIPA ####[facility] [address] [place] [address]Dr. Mima Leon Cholesterol in HDL [Mass/Vol] 60 mg/dL Normal 40-60 [facility] Comment on above: Performed By: #### C MP, TSH, T7, CYNTHIA, LIPID, LIPA ####[facility] [address] [place] [address]Dr. Mima Leon Cholesterol in LDL [Mass/Vol] 85.0 mg/dL Normal [facility] Comment on above: Performed By: #### C MP, TSH, T7, CYNTHIA, LIPID, LIPA ####[facility] [address] [place] [address]Dr. Mima Leon Cholesterol.total /Cholesterol in HDL [Mass ratio] 2.8 {ratio} Normal [facility] Comment on above: Performed By: #### C MP, TSH, T7, CYNTHIA, LIPID, LIPA ####[facility] [address] [place] [address]Dr. Mima Leon HDL NORMAL > or = 60 mg/dl - LO W CARDIOVASCULAR RISK <40 mg/dl - HIGH CARDIOVASCULAR RISK Normal [facility] Comment on above: Performed By: #### C MP, TSH, T7, CYNTHIA, LIPID, LIPA ####[facility] [address] [place] [address]Dr. Mima Leon LDL CALC NORMAL SEE BELOW Normal [facility] Comment on above: Result Comment: <100 mg/dl OPTIMAL 100 - 129 mg/dl NEAR OR ABOVE OPTIMAL 130 - 159 mg/dl BORDERLINE HIGH 160 - 189 mg/dl HIGH >190 mg/dl VERY HIGH Performed By: #### C MP, TSH, T7, CYNTHIA, LIPID, LIPA ####[facility] [address] [place] [address]Dr. Mima Leon Triglyceride [Mass/Vol] 115 mg/dL Normal <=150 [facility] Comment on above: Performed By: #### C MP, TSH, T7, CYNTHIA, LIPID, LIPA ####[facility] [address] [place] [address]Dr. Mima Leon VLDL CALC 23.0 mg/dL Normal [facility] Comment on above: Performed By: #### C MP, TSH, T7, CYNTHIA, LIPID, LIPA ####[facility] [address] [place] [address]Dr. Mima Leon PROF 14(COMP METB)on 022 Albumin [Mass/Vol] 3.8 g/dL Normal 3.4-5.0 [facility] Comment on above: Performed By: #### C MP, TSH, T7, CYNTHIA, LIPID, LIPA ####[facility] [address] [place] [address]Dr. Mima Leon Albumin/Globulin [Mass ratio] 1.0 {ratio} Normal [facility] Comment on above: Performed By: #### C MP, TSH, T7, CYNTHIA, LIPID, LIPA ####[facility] [address] [place] [address]Dr. Mima Leon ALP [Catalytic activity/Vol] 69 U/L Normal 46-116 [facility] Comment on above: Performed By: #### C MP, TSH, T7, CYNTHIA, LIPID, LIPA ####[facility] [address] [place] [address]Dr. Mima Leon ALT [Catalytic activity/Vol] 24 U/L Normal 14-59 [facility] Comment on above: Performed By: #### C MP, TSH, T7, CYNTHIA, LIPID, LIPA ####[facility] [address] [place] [address]Dr. Mima Leon Anion gap [Moles/Vol] 15.1 mmol/L Normal [facility] Comment on above: Performed By: #### C MP, TSH, T7, CYNTHIA, LIPID, LIPA ####[facility] [address] [place] [address]Dr. Mima Leon AST [Catalytic activity/Vol] 19 U/L Normal 15-37 [facility] Comment on above: Performed By: #### C MP, TSH, T7, CYNTHIA, LIPID, LIPA ####[facility] [address] [place] [address]Dr. Mima Leon Bilirubin [Mass/Vol] 0.6 mg/dL Normal 0.2-1.0 [facility] Comment on above: Performed By: #### C MP, TSH, T7, CYNTHIA, LIPID, LIPA ####[facility] [address] [place] [address]Dr. Mima Leon Calcium [Mass/Vol] 9.0 mg/dL Normal 8.5-10.1 [facility] Comment on above: Performed By: #### C MP, TSH, T7, CYNTHIA, LIPID, LIPA ####[facility] [address] [place] [address]Dr. Mima Leon Chloride [Moles/Vol] 100 mmol/L Normal 98-107 [facility] Comment on above: Performed By: #### C MP, TSH, T7, CYNTHIA, LIPID, LIPA ####[facility] [address] [place] [address]Dr. Mima Leon CO2 [Moles/Vol] 25.6 mmol/L Normal 21.0-32.0 [facility] Comment on above: Performed By: #### C MP, TSH, T7, CYNTHIA, LIPID, LIPA ####[facility] [address] [place] [address]Dr. Mima Leon Creatinine [Mass/Vol] 0.78 mg/dL Normal 0.55-1.02 [facility] Comment on above: Performed By: #### C MP, TSH, T7, CYNTHIA, LIPID, LIPA ####[facility] [address] [place] [address]Dr. Mima Leon EGFR-AF BULGARIAN >60 Normal >=60 [facility] Comment on above: Performed By: #### C MP, TSH, T7, CYNTHIA, LIPID, LIPA ####[facility] [address] [place] [address]Dr. Mima Leon EGFR-NON AF BULGARIAN >60 Normal >=60 [facility] Comment on above: Performed By: #### C MP, TSH, T7, CYNTHIA, LIPID, LIPA ####[facility] [address] [place] [address]Dr. Mima Leon Globulin (S) [Mass/Vol] 3.7 g/dL Normal [facility] Comment on above: Performed By: #### C MP, TSH, T7, CYNTHIA, LIPID, LIPA ####[facility] [address] [place] [address]Dr. Mima Leon Glucose [Mass/Vol] 91 mg/dL Normal 74-106 [facility] Comment on above: Performed By: #### C MP, TSH, T7, CYNTHIA, LIPID, LIPA ####[facility] [address] [place] [address]Dr. Mima Leon Potassium [Moles/Vol] 3.7 mmol/L Normal 3.5-5.1 [facility] Comment on above: Performed By: #### C MP, TSH, T7, CYNTHIA, LIPID, LIPA ####[facility] [address] [place] [address]Dr. Mima Leon Protein [Mass/Vol] 7.5 g/dL Normal 6.4-8.2 [facility] Comment on above: Performed By: #### C MP, TSH, T7, CYNTHIA, LIPID, LIPA ####[facility] [address] [place], [place] [address]Dr. Mima Leon Sodium [Moles/Vol] 137 mmol/L Normal 136-145 [facility] Comment on above: Performed By: #### C MP, TSH, T7, CYNTHIA, LIPID, LIPA ####[facility] [address] [place], [place] [address]Dr. Mima Leon Urea nitrogen [Mass/Vol] 10.0 mg/dL Normal 7.0-18.0 [facility] Comment on above: Performed By: #### C MP, TSH, T7, CYNTHIA, LIPID, LIPA ####[facility] [address] [place], [place] [address]Qu. Mima Leon Urea nitrogen/Creatini ne [Mass ratio] 12.8 mg/mg Normal [facility] Comment on above: Performed By: #### C MP, TSH, T7, CYNTHIA, LIPID, LIPA ####[facility] [address] [place], [place] [address]Yf. Mima Leon TSHon 03-19-2022 TSH 4.160 uIU/mL Critically high 0.358-3.[address] [facility] Comment on above: Performed By: #### C MP, TSH, T7, CYNTHIA, LIPID, LIPA ####[facility] [address] [place], [place] [address]Wi. Mima Leon CBC with differentialon 08-03 Erythrocyte distribution width (RBC) [Ratio] 12.7 % 11.0 - 16.3 % [facility] Hematocrit (Bld) [Volume fraction] 44.9 % 31.1 - 57.4 % [facility] Hemoglobin (Bld) [Mass/Vol] 15.5 g/dL 13.0 - 17.0 g/dL [facility] Interpretation and review of laboratory results Abnormal [facility] Lymphocyte # POCT 1.5 [facility] Lymphocytes/100 WBC (Bld) 16.1 % Low 25 - 57 % [facility] MCH POCT 32.1 [facility] MCHC (RBC) [Mass/Vol] 34.5 g/dL 32.7 - 36.7 g/dL [facility] MCV POCT 93.0 [facility] MPV POCT 8.6 [facility] MXD # POCT 0.8 [facility] MXD % POCT 8.1 % 1.2 - 11.4 % [facility] Neutrophil # POCT 7.1 [facility] Neutrophils/100 WBC (Bld) 75.8 % High 37 - 75 % [facility] Platelet Ab Ql (S) 235 K/uL 166 - 400 K/uL [facility] RBC POCT 4.83 [facility] WBC POCT 9.[address] [facility] [facility] [address] ABDOMEN PELVIS WO CONTRAS Ton 08-12-2021 CT ABDOMEN PELVIS WO CONTRAST EXAMINATION TYPE: CT ABDOMEN PELVIS WO CONTRAST ORDER DATE: 08/12/2021 8:20 AM HISTORY: Abdominal pain, acute, nonlocalized, . COMPARISON: 08/12/2021 enlarged images also present TECHNIQUE: 5mm helical axial images of the abdomen and pelvis were acquired without the administration of IV or oral contrast. FINDINGS: No IV or oral contrast was administered which limits detection of solid organ lesions, vascular lesions, bowel lesions, and fluid collections. Lung bases and heart: Normal Liver: Normal. Gallbladder: Normal. Kidneys: Normal. Spleen: Normal. Pancreas: Normal. Adrenals: Normal. Bowel: Markedly limited evaluation of the bowel due to noncontrasted imaging. There is no bowel dilatation. Due to a paucity of intra-abdominal fat, the appendix is not well seen, however, a small bubble of gas in the right abdomen (series 3 image 54) may represent gas within the appendix. Bowel in the pelvis is poorly evaluated due to numerous confluent loops. Mottled gas in the right lower quadrant on series 3 image 65 adjacent to the uterus is favored to represent gas within small bowel. Retroperitoneum: No lymphadenopathy. Genitourinary: Normal. Specifically, no radiopaque stone Bones: Normal for age. IMPRESSION: 1. No radiopaque stone 2. Appendix is not well identified due to a paucity of intra-abdominal fat and lack of intravenous or enteric contrast. If there is persistent concern for appendicitis, recommend contrasted exam. -------- FINAL REPORT -------- Dictated By: Usman Nayak Dictated Date: 08/12/2021 08:28 Assigned Physician: Usman Nayak Reviewed and Electronically Signed By: Usman Nayak Signed Date: 08/12/2021 08:38 Workstation ID: [id number] Transcribed By: Self Edit Transcribed Date: 08/12/2021 08:28 Normal [facility] CT Pelvis limited WO contras ton 08-12-2021 1. No radiopaque stone 2. Appendix is not well identified due to a paucity of intra-abdominal fat and lack of intravenous or enteric contrast. If there is persistent concern for appendicitis, recommend contrasted exam. -------- FINAL REPORT -------- Dictated By: Usman Nayak Dictated Date: 08/12/2021 08:28 Assigned Physician: Usman Nayak Reviewed and Electronically Signed By: Usman Nayak Signed Date: 08/12/2021 08:38 Workstation ID: [id number] Transcribed By: Self Edit Transcribed Date: 08/12/2021 08:28 [facility] EXAMINATION TYPE: CT ABDOMEN PELVIS WO CONTRAST ORDER DATE: 08/12/2021 8:20 AM HISTORY: Abdominal pain, acute, nonlocalized, . COMPARISON: 08/12/2021 enlarged images also present TECHNIQUE: 5mm helical axial images of the abdomen and pelvis were acquired without the administration of IV or oral contrast. FINDINGS: No IV or oral contrast was administered which limits detection of solid organ lesions, vascular lesions, bowel lesions, and fluid collections. Lung bases and heart: Normal Liver: Normal. Gallbladder: Normal. Kidneys: Normal. Spleen: Normal. Pancreas: Normal. Adrenals: Normal. Bowel: Markedly limited evaluation of the bowel due to noncontrasted imaging. There is no bowel dilatation. Due to a paucity of intra-abdominal fat, the appendix is not well seen, however, a small bubble of gas in the right abdomen (series 3 image 54) may represent gas within the appendix. Bowel in the pelvis is poorly evaluated due to numerous confluent loops. Mottled gas in the right lower quadrant on series 3 image 65 adjacent to the uterus is favored to represent gas within small bowel. Retroperitoneum: No lymphadenopathy. Genitourinary: Normal. Specifically, no radiopaque stone Bones: Normal for age. ChargeBeeCRIBE Usman Nayak MD - 08/12/2021 EXAMINATION TYPE: CT ABDOMEN PELVIS WO CONTRAST ORDER DATE: 08/12/2021 8:20 AM HISTORY: Abdominal pain, acute, nonlocalized, . COMPARISON: 08/12/2021 enlarged images also present TECHNIQUE: 5mm helical axial images of the abdomen and pelvis were acquired without the administration of IV or oral contrast. FINDINGS: No IV or oral contrast was administered which limits detection of solid organ lesions, vascular lesions, bowel lesions, and fluid collections. Lung bases and heart: Normal Liver: Normal. Gallbladder: Normal. Kidneys: Normal. Spleen: Normal. Pancreas: Normal. Adrenals: Normal. Bowel: Markedly limited evaluation of the bowel due to noncontrasted imaging. There is no bowel dilatation. Due to a paucity of intra-abdominal fat, the appendix is not well seen, however, a small bubble of gas in the right abdomen (series 3 image 54) may represent gas within the appendix. Bowel in the pelvis is poorly evaluated due to numerous confluent loops. Mottled gas in the right lower quadrant on series 3 image 65 adjacent to the uterus is favored to represent gas within small bowel. Retroperitoneum: No lymphadenopathy. Genitourinary: Normal. Specifically, no radiopaque stone Bones: Normal for age. IMPRESSION: 1. No radiopaque stone 2. Appendix is not well identified due to a paucity of intra-abdominal fat and lack of intravenous or enteric contrast. If there is persistent concern for appendicitis, recommend contrasted exam. -------- FINAL REPORT -------- Dictated By: Usman Nayak Dictated Date: 08/12/2021 08:28 Assigned Physician: Usman Nayak Reviewed and Electronically Signed By: Usman Nayak Signed Date: 08/12/2021 08:38 Workstation ID: [id number] Transcribed By: Self Edit Transcribed Date: 08/12/2021 08:28 [facility] Radiology Study observation (narrative) [facility] CT Pelvis limited WO contras tOrdered By: Usman Nayak on 08-12-2021 [employer] Work Phone: HCG ( test) Ql (U)o n 08-12-2021 Beta HCG ( test) Ql (U) Negative Negative [facility] Beta HCG ( test) Ql (U) Yes Yes [facility] Interpretation and review of laboratory results Normal [facility] POCT BASIC METABOLIC PROFILE on 08-12-2021 Calcium [Mass/Vol] 9.0 mg/dL Normal 8.9-10.3 [facility] Comment on above: Performed By: #### L [id number] #### [facility] ([facility]) LAB [address] [place] [address] Chloride [Moles/Vol] 103 mmol/L Normal 98-107 [facility] Comment on above: Performed By: #### L [id number] #### [facility] ([facility]) LAB [address] [place] [address] CO2 [Moles/Vol] 25 mmol/L Normal 22-32 [facility] Comment on above: Performed By: #### L [id number] #### [facility] ([facility]) LAB [address] [place] [address] Creatinine [Mass/Vol] 0.8 mg/dL Normal 0.6-1.3 [facility] Comment on above: Performed By: #### L [id number] #### [facility] ([facility]) LAB [address] [place] [address] GFR/1.73 sq M.predicted among non-blacks MDRD (S/P/Bld) [Vol rate/Area] mL/min/{1.73_m2} Normal >60 mL/min/1.73m* 2 [facility] Comment on above: Performed By: #### L [id number] #### [facility] ([facility]) LAB [address] [place] [address] Glucose [Mass/Vol] 97 mg/dL Normal 70-99 [facility] Comment on above: Performed By: #### L [id number] #### [facility] ([facility]) LAB [address] [place] [address] Potassium [Moles/Vol] 4.0 mmol/L Normal 3.6-5.1 [facility] Comment on above: Performed By: #### L [id number] #### [facility] ([facility]) LAB [address] [place] [address] Sodium [Moles/Vol] 139 mmol/L Normal 136-145 [facility] Comment on above: Performed By: #### L [id number] #### [facility] [place] ([facility]) LAB [address] [place] [address] Urea nitrogen [Mass/Vol] 6 mg/dL Low 8-20 [facility] Comment on above: Performed By: #### L [id number] #### [facility] ([facility]) LAB [address] [place] [address] POCT Basic metabolic profile on 08-12-2021 Calcium [Mass/Vol] 9.0 mg/dL 8.9 - 10.3 mg/dL [facility] Chloride [Moles/Vol] 103 mmol/L 98 - 107 mmol/L [facility] CO2 [Moles/Vol] 25 mmol/L 22 - 32 mmol/L [facility] Creatinine [Mass/Vol] 0.8 mg/dL 0.6 - 1.3 mg/dL [facility] GFR/1.73 sq M.predicted MDRD (S/P/Bld) [Vol rate/Area] mL/min/{1.73_m2} >60 mL/min/1.73m* 2 mL/min/1.73m* 2 [facility] Glucose [Mass/Vol] 97 mg/dL 70 - 99 mg/dL [facility] Interpretation and review of laboratory results Abnormal [facility] Potassium [Moles/Vol] 4.0 mmol/L 3.6 - 5.1 mmol/L [facility] Sodium [Moles/Vol] 139 mmol/L 136 - 145 mmol/L [facility] Urea nitrogen [Mass/Vol] 6 mg/dL Low 8 - 20 mg/dL [facility] POCT CBC WITH DIFFERENTIALon 08-12-2021 Erythrocyte distribution width (RBC) [Ratio] 12.7 % Normal 11.0-16.3 [facility] Comment on above: Performed By: #### L [id number] #### [facility] ([facility]) LAB [address] [place] [address] Hematocrit (Bld) [Volume fraction] 44.9 % Normal 31.1-57.4 [facility] Comment on above: Performed By: #### L [id number] #### [facility] ([facility]) LAB [address] [place] [address] Hemoglobin (Bld) [Mass/Vol] 15.5 g/dL Normal 13.0-17.0 [facility] Comment on above: Performed By: #### L [id number] #### [facility] ([facility]) LAB [address] [place] [address] Lymphocytes (Bld) [#/Vol] 1.5 10*3/uL Normal 1.0-4.8 [facility] Comment on above: Performed By: #### L [id number] #### [facility] ([facility]) LAB [address] [place] [address] Lymphocytes/100 WBC (Bld) 16.1 % Low 25-57 [facility] Comment on above: Performed By: #### L [id number] #### [facility] ([facility]) LAB [address] [place] [address] MCH POCT 32.1 pcg Normal 27.4-35.7 [facility] Comment on above: Performed By: #### L [id number] #### [facility] ([facility]) LAB [address] [place] [address] MCHC (RBC) [Mass/Vol] 34.5 g/dL Normal 32.7-36.7 [facility] Comment on above: Performed By: #### L [id number] #### [facility] ([facility]) LAB [address] [facility] [address] [place] [address] MCV (RBC) [Entitic vol] 93.0 fL Normal 82.5-102.0 [facility] Comment on above: Performed By: #### L [id number] #### [facility] ([facility]) LAB [address] [facility] [address] [place] [address] MXD # POCT 0.8 K/mcL Normal 0.1-1.3 [facility] Comment on above: Performed By: #### L [id number] #### [facility] ([facility]) LAB [address] [place] [address] MXD % POCT 8.1 % Normal 1.2-11.4 [facility] Comment on above: Performed By: #### L [id number] #### [facility] ([facility]) LAB [address] [place] [address] Neutrophils (Bld) [#/Vol] 7.1 10*3/uL Normal 1.8-7.7 [facility] Comment on above: Performed By: #### L [id number] #### [facility] ([facility]) LAB [address] [place] [address] Neutrophils/100 WBC (Bld) 75.8 % High 37-75 [facility] Comment on above: Performed By: #### L [id number] #### [facility] [place] ([facility]) LAB [address] [place] [address] Platelet mean volume (Bld) [Entitic vol] 8.6 fL Normal 8.5-13.5 [facility] Comment on above: Performed By: #### L [id number] #### [facility] LAB [address] [place] [address] Platelet POCT 235 K/uL Normal 166-400 [facility] Comment on above: Performed By: #### L [id number] #### [facility] LAB [address] [place] [address] RBC (Bld) [#/Vol] 4.83 10*6/uL Normal 4.30-5.70 [facility] Comment on above: Performed By: #### L [id number] #### [facility] ([facility]) LAB [address] [place] [address] WBC (Bld) [#/Vol] 9.4 10*3/uL Normal 4.5-13.5 [facility] Comment on above: Performed By: #### L [id number] #### [facility] ([facility]) LAB [address] [place] [address] POCT LIVER PROFILEon 022 Albumin [Mass/Vol] 3.7 g/dL Normal 3.5-4.8 [facility] Comment on above: Performed By: #### L [id number] #### [facility] [place] ([facility] LAB [address] [place] [address] ALP POCT 66 units/L Normal 32-91 [facility] Comment on above: Performed By: #### L [id number] #### [facility] LAB [address] [place] [address] ALT [Catalytic activity/Vol] 13 U/L Normal 7-52 [facility] Comment on above: Performed By: #### L [id number] #### [facility] ([facility]) LAB [address] [place] [address] Amylase [Catalytic activity/Vol] 55.0 U/L Normal 26-100 [facility] Comment on above: Performed By: #### L [id number] #### [facility] ([facility]) LAB [address] [place] [address] AST [Catalytic activity/Vol] 23 U/L Normal 15-41 [facility] Comment on above: Performed By: #### L [id number] #### [facility] ([facility]) LAB [address] [place] [address] Bilirubin [Mass/Vol] 0.8 mg/dL Normal 0.3-1.2 [facility] Comment on above: Performed By: #### L [id number] #### [facility] ([facility]) LAB [address] [place] [address] GGT POCT 13 unit/L Normal 7-50 [facility] Comment on above: Performed By: #### L [id number] #### [facility] ([facility]) LAB [address] [place] [address] Total Protein POCT 7 g/L Normal 6.1-7.9 [facility] Comment on above: Performed By: #### L [id number] #### [facility] ([facility]) LAB [address] [place] [address] POCT Liver profileon 022 Albumin BCP dye (Bld) [Mass/Vol] 3.7 g/dL 3.5 - 4.8 g/dL [facility] ALP POCT 66 [facility] ALT [Catalytic activity/Vol] 13 U/L [facility] Amylase POCT 55.0 [facility] AST [Catalytic activity/Vol] 23 U/L [facility] Bilirubin [Mass/Vol] 0.8 mg/dL 0.3 - 1.2 mg/dL [facility] GGT POCT 13 [facility] Interpretation and review of laboratory results Normal [facility] Protein [Mass/Vol] 7 g/L 6.1 - 7.9 g/L [facility] Urinalysis macro (dipstick) panel (U)on 08-12-2021 Bilirubin Urine POCT Negative Normal Negative [facility] Comment on above: Performed By: #### 2 [id number] #### [facility] [place] ([facility]) LAB [address] [place] [address] Blood Urine POCT Trace-lysed Abnormal Negative [facility] Comment on above: Performed By: #### 2 [id number] #### [facility] [place] ([facility] [address] [place] [address] Clarity Urine POCT Clear Normal Clear [facility] Comment on above: Performed By: #### 2 [id number] #### [facility] [place] ([facility] [address] [place] [address] Color Urine POCT Yellow Normal Yellow, Lig ht Yellow [facility] Comment on above: Performed By: #### 2 [id number] #### [facility] [place] ([facility] LAB [address] [place] [address] Glucose Urine POCT Negative Normal Negative [facility] Comment on above: Performed By: #### 2 [id number] #### [facility] [place] ([facility] [address] [place] [address] Ketones Urine POCT Negative Normal Negative [facility] Comment on above: Performed By: #### 2 [id number] #### [facility] [place] ([facility] [address] [place] [address] Leukocyte Esterase POCT Small Abnormal Negative [facility] Comment on above: Performed By: #### 2 4357-6 #### [facility] [place] ([facility] [address] [place] [address] Nitrite POCT Negative Normal Negative [facility] Comment on above: Performed By: #### 2 [id number] #### [facility] [place] ([facility] [address] [place] [address] pH Urine POCT 5.5 Normal 5.0-8.5 [facility] Comment on above: Performed By: #### 2 4357-6 #### [facility] [place] ([facility] [address] [place] [address] Protein Urine POCT Negative Normal Negative [facility] Comment on above: Performed By: #### 2 [id number] #### [facility] [place] ([facility] [address] [place] [address] Specific [place] Urine POCT 1.025 Normal 1.005-1.030 [facility] Comment on above: Performed By: #### 2 4357-6 #### [facility] [place] [facility] [address] [place] [address] Urobilinogen POCT 0.2 EU/dL Normal 0.2 - 1.0 [facility] Comment on above: Performed By: #### 2 4357-6 #### [facility] [place] ([facility] [address] [place] [address] Bilirubin Ql (U) Negative Negative [facility] Blood Visual Ql (U) Trace-lysed Abnormal Negative eryth/mcL [facility] Clarity (U) Clear Clear [facility] Color (U) Yellow Yellow, Light Yellow [facility] Color (U) Small Abnormal Negative [facility] Color (U) 5.5 [facility] Glucose Test strip (U) [Mass/Vol] Negative Negative mg/dL [facility] Interpretation and review of laboratory results Abnormal [facility] Ketones (U) [Mass/Vol] Negative Negative mg/dL [facility] Nitrite (Unsp spec) [Mass/Vol] Negative Negative [facility] Protein (U) [Mass/Vol] Negative Negative mg/dL [facility] Specific gravity (U) [Rel density] 1.025 [facility] Urobilinogen Qn (U) 0.2 {Ami'U}/dL 0.2 - 1.0 [facility] XR SPINE LUMBOSACRAL 5 VIEWS on 07-30-2021 XR SPINE LUMBOSACRAL 5 VIEWS EXAM: XR SPINE LUMBOSACRAL 5 VIEWS VIEWS, 07/30/2021 13:05 PM COMPARISON: No prior studies available for comparison. CLINICAL INDICATIONS: PAIN RELEVANT CLINICAL HISTORY: M54.50:Low back pain, unspecified back pain laterality, unspecified chronicity, unspecified whether sciatica present AP,LAT,FLEX,EXT 4 VIEWS; FINDINGS: 5 images obtained. There are 5 lumbar vertebral bodies identified with partial lumbarization of S1. No compression deformities. Disc spaces are preserved. There is a slight dextroscoliotic curve. No spondylolysis or spondylolisthesis. No spinal instability with flexion or extension. SI joints are grossly intact IMPRESSION: Partial lumbarization of S1 Slight dextroscoliosis No acute osseous abnormality No spinal instability with flexion or extension Normal [facility] XR Spine Lumbar and Sacrum 5 [facility]son 07-30-2021 IMPRESSION: Partial lumbarization of S1 Slight dextroscoliosis No acute osseous abnormality No spinal instability with flexion or extension OLOGY EXAM: XR SPINE LUMBO SACRAL 5 VIEWS VIEWS, 07/30/2021 13:05 PM COMPARISON: No prior studies available for comparison. CLINICAL INDICATIONS: PAIN RELEVANT CLINICAL HISTORY: M54.50:Low back pain, unspecified back pain laterality, unspecified chronicity, unspecified whether sciatica present AP,LAT,FLEX,EXT 4 VIEWS; FINDINGS: 5 images obtained. There are 5 lumbar vertebral bodies identified with partial lumbarization of S1. No compression deformities. Disc spaces are preserved. There is a slight dextroscoliotic curve. No spondylolysis or spondylolisthesis. No spinal instability with flexion or extension. SI joints are grossly intact RADIOLOGY Vivian Del Castillo D O - 07/30/2021 EXAM: XR SPINE LUMBOSACRAL 5 VIEWS VIEWS, 07/30/2021 13:05 PM COMPARISON: No prior studies available for comparison. CLINICAL INDICATIONS: PAIN RELEVANT CLINICAL HISTORY: M54.50:Low back pain, unspecified back pain laterality, unspecified chronicity, unspecified whether sciatica present AP,LAT,FLEX,EXT 4 VIEWS; FINDINGS: 5 images obtained. There are 5 lumbar vertebral bodies identified with partial lumbarization of S1. No compression deformities. Disc spaces are preserved. There is a slight dextroscoliotic curve. No spondylolysis or spondylolisthesis. No spinal instability with flexion or extension. SI joints are grossly intact IMPRESSION IMPRESSION: Partial lumbarization of S1 Slight dextroscoliosis No acute osseous abnormality No spinal instability with flexion or extension [facility] Radiology Study observation (narrative) [facility] XR Spine Lumbar and Sacrum 5 ViewsOrdered By: Vivian Del Castillo on 07-30-2021 [facility] Work Phone: POC COVID-FLU SOFIAon 2020 INTERNAL CONTROLS Acceptable Normal [facility] Comment on above: Performed By: #### P [id number] #### [facility], [address] [address] RAPID INFLUENZA A AGN Negative Normal Negative [facility] Comment on above: Performed By: #### P [id number] #### [facility], [address] [address] RAPID INFLUENZA B AGN Negative Normal Negative [facility] Comment on above: Performed By: #### P [id number] #### [facility], [address] [address] ALISE SARS ANTIGEN Positive Abnormal Presumptive Negative [facility] Comment on above: Performed By: #### P [id number] #### [facility], [address] [address] POC Influenza A/B and SARS A ntigen manually resultedon 04-02-2021 FLUAV Ag IA.rapid Ql (Nph) Negative Negative [facility] FLUBV Ag IA.rapid Ql (Nph) Negative Negative [facility] INTERNAL CONTROLS Acceptable [facility] Interpretation and review of laboratory results Abnormal [facility] SARS-CoV+SARS-CoV -2 (COVID-19) Ag IA.rapid Ql (Resp) Positive Abnormal Presumptive Negative [facility] POCT RAPID STREP Aon 021 INTERNAL CONTROLS Acceptable Normal [facility] Comment on above: Performed By: #### P [id number] #### [facility], [address] [address] STREP A ANTIGEN Negative Normal Negative [facility] Comment on above: Performed By: #### P [id number] #### [facility], [address] [address] S. pyogenes Ag IA.rapid Ql ( Throat)on 04-02-2021 INTERNAL CONTROLS Acceptable [facility] Interpretation and review of laboratory results Normal [facility] S. pyogenes Ag Ql (Unsp spec) Negative Negative [facility] STREP A CULTURE, THROATon STREP A CULTURE, THROAT CULTURE: 468NORMAL MICROBIOTA 4+ Normal microbiota Normal [facility] [facility] Comment on above: Performed By: #### L [id number] #### [facility] [address] [place] [address] [place] CBC WITH AUTO DIFFERENTIALon 04-05-2018 Basophils Auto #/vol (Bld) 0.05 10*3/uL Invalid Interpretation Code LAB Basophils/100 WBC Auto (Bld) 0.4 % Invalid Interpretation Code LAB Eosinophils Auto #/vol (Bld) 0.06 10*3/uL Invalid Interpretation Code LAB Eosinophils/100 WBC Auto (Bld) 0.5 % Invalid Interpretation Code LAB Erythrocyte distribution width Auto Entitic volume (RBC) 12.2 % Invalid Interpretation Code 11.6 - 14.8 % LAB Hematocrit Auto Volume Fraction (Bld) 42.6 % Invalid Interpretation Code 36 - 46 % LAB Hemoglobin mass conc (Bld) 15.0 g/dL Invalid Interpretation Code 12 - 16 g/dL LAB Immature granulocytes #/vol (Bld) 0.04 10*3/uL Invalid Interpretation Code LAB Immature granulocytes/100 WBC (Bld) 0.40 % Invalid Interpretation Code LAB Comment on above: The IG parameter is the percentage of metamyelocytes, myelocytes, and promyelocytes. Interpretation and review of laboratory results Abnormal Invalid Interpretation Code LAB Lymphocytes Auto #/vol (Bld) 2.00 10*3/uL Invalid Interpretation Code LAB Lymphocytes/100 WBC Auto (Bld) 17.6 % Invalid Interpretation Code LAB MCH Auto Entitic mass (RBC) 31.3 pg Invalid Interpretation Code 26 - 34 pg LAB MCHC Auto mass conc (RBC) 35.2 g/dL Invalid Interpretation Code 31 - 37 g/dL LAB MCV Auto Entitic volume (RBC) 88.9 fL Invalid Interpretation Code 80 - 100 fL LAB Monocytes Auto #/vol (Bld) 0.72 10*3/uL Invalid Interpretation Code LAB Monocytes/100 WBC Auto (Bld) 6.3 % Invalid Interpretation Code LAB Neutrophils Auto #/vol (Bld) 8.52 10*3/uL High LAB Neutrophils/100 WBC Auto (Bld) 74.8 % Invalid Interpretation Code LAB Nucleated RBC #/vol (Bld) 0.00 10*3/uL Invalid Interpretation Code LAB Nucleated RBC/100 WBC Ratio (Bld) 0.0 % Invalid Interpretation Code LAB Platelet mean volume Auto Entitic volume (Bld) 8.9 fL Low 9 - 15.5 fL LAB Platelets Auto #/vol (Bld) 220 10*3/uL Invalid Interpretation Code LAB RBC Auto #/vol (Bld) 4.79 10*6/uL Invalid Interpretation Code LAB WBC Auto #/vol (Bld) 11.39 10*3/uL High LAB Comprehensive Metabolic Pane chelsy 04-05-2018 Albumin mass conc 4.7 g/dL Invalid Interpretation Code 3.2 - 5.2 g/dL LAB ALP enzyme act/vol 105 U/L Invalid Interpretation Code 40 - 140 U/L LAB ALT enzyme act/vol 22 U/L Invalid Interpretation Code 0 - 40 U/L LAB Anion gap 3 molar conc 14 mmol/L Invalid Interpretation Code 10 - 20 mmol/L LAB AST enzyme act/vol 24 U/L Invalid Interpretation Code 0 - 45 U/L LAB Bilirubin mass conc 1.0 mg/dL Invalid Interpretation Code 0 - 1.3 mg/dL LAB Calcium mass conc 9.4 mg/dL Invalid Interpretation Code 8.4 - 10.2 mg/dL LAB Chloride molar conc 102 mmol/L Invalid Interpretation Code 98 - 108 mmol/L LAB Creatinine mass conc 0.81 mg/dL Invalid Interpretation Code 0.4 - 1.1 mg/dL LAB GFR/1.73 sq M predicted among non-blacks MDRD vol rate/area (S/P/Bld) The eGFR should be used for monitoring renal function only and not for medication dosing. Invalid Interpretation Code LAB GFR/1.73 sq M.predicted CKD-EPI vol rate/area (S/P/Bld) 106 Invalid Interpretation Code >=60 mL/min/1.73 m2 LAB Glucose mass conc 94 mg/dL Invalid Interpretation Code 65 - 99 mg/dL LAB HCO3 molar conc 26 mmol/L Invalid Interpretation Code 21 - 32 mmol/L LAB Interpretation and review of laboratory results Normal Invalid Interpretation Code LAB Potassium molar conc 4.0 mmol/L Invalid Interpretation Code 3.5 - 5.1 mmol/L DH LAB Protein mass conc 8.0 g/dL Invalid Interpretation Code 6 - 8 g/dL LAB Sodium molar conc 138 mmol/L Invalid Interpretation Code 135 - 145 mmol/L LAB Urea nitrogen mass conc 10 mg/dL Invalid Interpretation Code 8 - 25 mg/dL LAB Urea nitrogen/Creatini ne mass ratio 12.3 mg/mg Invalid Interpretation Code LAB Otheron 04-05-2018 Extra Tube Hold for add-ons. Invalid Interpretation Code LAB Comment on above: Auto resulted. URINALYSISon 04-05-2018 Bacteria Auto Ql (U) Few Abnormal None Seen /hpf LAB Bilirubin Ql (U) Negative Invalid Interpretation Code Negative LAB Clarity Refractometry automated Nom (U) Cloudy Abnormal Clear LAB Color Auto Nom (U) Red Abnormal Colorless, Yellow LAB Epithelial cells.squamous Auto #/area (Urine sed) 11 High LAB Glucose Automated test strip mass conc (U) Negative Invalid Interpretation Code Negative mg/dL LAB Hemoglobin Automated test strip Ql (U) Large Abnormal Negative LAB Interpretation and review of laboratory results Abnormal Invalid Interpretation Code LAB Ketones mass conc (U) Negative Invalid Interpretation Code Negative mg/dL LAB Leukocyte clumps Auto #/area (Urine sed) Rare Abnormal None Seen /hpf LAB Leukocyte esterase Automated test strip Ql (U) Moderate Abnormal Negative LAB Mucus Auto #/area (Urine sed) Few Abnormal None Seen, Rare /lpf LAB Nitrite Automated test strip Ql (U) Negative Invalid Interpretation Code Negative LAB pH Test strip (U) 5.0 [pH] Invalid Interpretation Code LAB Protein mass conc (U) 100 Abnormal Negative mg/dL LAB RBC Auto #/area (Urine sed) >180 High LAB Specific gravity Automated test strip Relative Density (U) 1.020 Invalid Interpretation Code LAB Urobilinogen Test strip Qn (U) <2.0 Invalid Interpretation Code <2.0 mg/dL LAB WBC Auto #/area (Urine sed) 179 High LAB Microscopic examinat ion is performed on all urinalysis samples and only positive findings are reported. The test for blood on the chemical analytic portion of urinalysis may also be positive due to hemoglobinuria and myoglobinuria and if red blood cells are present they are quantified by microscopic examination. Invalid Interpretation Code LAB Urine Pregnancyon 04-05-2018 HCG ( test) Ql (U) Negative Invalid Interpretation Code Negative LAB Interpretation and review of laboratory results Normal Invalid Interpretation Code LAB POC URINALYSIS, AUTO [place] URGE NT CAREon 04-02-2018 Bilirubin Ql (U) Negative Invalid Interpretation Code Negative [facility] Clarity, UA Turbid Abnormal Clear [facility] Color Auto Nom (U) [place] Abnormal Yellow, Light Yellow, Dark Yellow [facility] Glucose Ql (U) Negative Invalid Interpretation Code Normal, Negative mg/dL [facility] Hemoglobin Test strip Ql (U) Moderate Abnormal Negative [facility] Interpretation and review of laboratory results Abnormal Invalid Interpretation Code [facility] Ketones Ql (U) Negative Invalid Interpretation Code Negative mg/dL [facility] Leukocyte esterase Test strip Ql (U) Large Abnormal Negative [facility] Nitrite Test strip Ql (U) Positive Abnormal Negative [facility] pH Test strip (U) 6.0 [pH] Invalid Interpretation Code [facility] Protein Test strip Ql (U) 100 Abnormal Negative mg/dL [facility] Specific gravity Relative Density (U) 1.025 Invalid Interpretation Code [facility] Urobilinogen Test strip Qn (U) 0.2 mg/dL Invalid Interpretation Code <2.0, 0.2, Normal, Negative, 1.0, 2.0, <1.0 [facility] Vital Signs Date Time Vital Sign Value Performing Clinician Facility 08-12-2021 07:26-0400 Body temperature 98.4 [degF] Brandi Mcneill MD Work Phone: [facility] 08-12-2021 07:26-0400 Diastolic blood pressure 88 mm[Hg] Brandi Mcneill MD Work Phone: [facility] 08-12-2021 07:26-0400 Heart rate 95 /min Brandi Mcneill MD Work Phone: [facility] 08-12-2021 07:26-0400 Respiratory rate 18 /min Brandi Mcneill MD Work Phone: [facility] 08-12-2021 07:26-0400 SaO2% (BldA) [Mass fraction] 100 % Brandi Mcneill MD Work Phone: [facility] 08-12-2021 07:26-0400 Systolic blood pressure 135 mm[Hg] Brandi Mcneill MD Work Phone: [facility] 08-12-2021 07:26-0400 Body height 170.2 cm Brandi Mcneill MD Work Phone: [facility] 08-12-2021 07:26-0400 Body mass index (BMI) [Ratio] 18.79 kg/m2 Brandi Mcneill MD Work Phone: [facility] 08-12-2021 [id number] Body weight 54.43 kg Brandi Mcneill MD Work Phone: [facility] 07-30-2021 13:16-0400 Body height 168.9 cm Vita Ballesteros MD Work Phone: [facility] 07-30-2021 13:16-0400 Body mass index (BMI) [Ratio] 20.99 kg/m2 Vita Ballesteros MD Work Phone: [facility] 07-30-2021 13:16-0400 Body temperature 97 [degF] Vita Ballesteros MD Work Phone: [facility] 07-30-2021 13:16-0400 Body weight 59.88 kg Vita Ballesteros MD Work Phone: [facility] 07-30-2021 13:16-0400 Heart rate 66 /min Vita Ballesteros MD Work Phone: [facility] 07-30-2021 13:16-0400 SaO2% (BldA) [Mass fraction] 98 % Vita Ballesteros MD Work Phone: [facility] 04-02-2021 14:21-0500 Body temperature 98.29 [degF] Osmani Jett MD Work Phone: [facility] 04-02-2021 14:21-0500 Body weight 54.48 kg Osmani Jett MD Work Phone: [facility] 04-02-2021 14:21-0500 Diastolic blood pressure 91 mm[Hg] Osmani Jett MD Work Phone: [facility] 04-02-2021 14:21-0500 Heart rate 108 /min Osmani Jett MD Work Phone: [facility] 04-02-2021 14:21-0500 Respiratory rate 18 /min Osmani Jett MD Work Phone: [facility] 04-02-2021 14:21-0500 SaO2% (BldA) [Mass fraction] 99 % Osmani Jett MD Work Phone: [facility] 04-02-2021 14:21-0500 Systolic blood pressure 146 mm[Hg] Osmani Jett MD Work Phone: [facility] 04-05-2018 12:44-0500 BP Diastolic 59 mm[Hg] [facility] 04-05-2018 12:44-0500 BP Systolic 100 mm[Hg] [facility] 04-05-2018 12:44-0500 Pulse (Heart Rate) 88 /min [facility] 04-05-2018 12:44-0500 Pulse Oximetry 100 % [facility] 04-05-2018 12:44-0500 Respiratory Rate 16 /min [facility] 04-05-2018 11:08-0500 BMI (Body Mass Index) 20.36 kg/m2 [facility] 04-05-2018 11:08-0500 Body Temperature 98.29 [degF] [facility] 04-05-2018 11:08-0500 Height 170.2 cm [facility] 04-05-2018 11:08-0500 Weight 58.97 kg [facility] 04-02-2018 19:46-0500 BMI (Body Mass Index) 20.36 kg/m2 [facility] 04-02-2018 19:46-0500 Body Temperature 97.5 [degF] [facility] 04-02-2018 19:46-0500 BP Diastolic 82 mm[Hg] [facility] 04-02-2018 19:46-0500 BP Systolic 114 mm[Hg] [facility] 04-02-2018 19:46-0500 Height 170.2 cm [facility] 04-02-2018 19:46-0500 Pulse (Heart Rate) 79 /min [facility] 04-02-2018 19:46-0500 Pulse Oximetry 97 % [facility] 04-02-2018 19:46-0500 Respiratory Rate 18 /min [facility] 04-02-2018 19:46-0500 Weight 58.97 kg [facility] Encounters Encounter Date Encounter Type Care Provider Facility Start: 09-22-2023 End: 09-22-2023 ambulatory CRISTI ESTEBAN Facility:[facility] Start: 09-09-2023 End: 09-09-2023 ambulatory ISAC SETH Not Available Start: 05-08-2022 End: 05-09-[address] CRISTI ESTEBAN . Facility: Start: 03-19-2022 End: 03-20-[address] CRISTI ESTEBAN . Facility: Start: 08-12-2021 End: 08-12-2021 Emergency department patient visit BARNDI MCNEILL [facility] Start: 08-12-2021 End: 08-12-2021 Emergency department patient visit Brandi Mcneill MD Work Phone: [facility] Comment on above: Flank pain (Primary Dx) Start: 08-12-2021 End: 08-12-2021 Evaluation and management of inpatient Brandi Mcneill MD Work Phone: [facility] Start: 07-30-2021 ambulatory VITA BALLESTEROS Facility:[facility] Start: 07-30-2021 End: 07-30-2021 Office consultation new/estab patient 60 min Vita Ballesteros MD Work Phone: [facility] Comment on above: Low back pain, unspe cified back pain laterality, unspecified chronicity, unspecified whether sciatica present (Primary Dx); Lumbar degenerative disc disease Start: 07-26-2021 ambulatory VITA BALLESTEROS Facility:[facility] Start: 04-02-2021 End: 04-02-2021 ambulatory OSMANI JETT [facility] Start: 04-02-2021 End: 04-02-2021 Office outpatient visit 15 minutes Osmani Jett MD Work Phone: [facility] Comment on above: COVID-19 (Primary Dx ) Start: 04-05-2018 End: 04-05-2018 Emergency department patient visit PHYSICIAN KALE [facility] Start: 04-05-2018 End: 04-05-2018 Emergency department patient visit Saroj Harris Work Phone: [facility] Comment on above: Acute UTI (Primary D x) Start: 04-02-2018 End: 04-02-2018 Patient encounter procedure PHYSICIAN KALE [facility] Start: 04-02-2018 End: 04-02-2018 Office outpatient new 20 minutes Milagros Martinezwell Work Phone: [facility] Comment on above: Urinary tract infect ion without hematuria, site unspecified (Primary Dx) Procedures Date Procedure Procedure Detail Performing Clinician Start: 08-12-2021 Ct abdomen & pelvis w/o contrast material Brandi Mcneill MD Work Phone: Start: 08-12-2021 End: 08-12-2021 Albumin serum plasma/whole blood Brandi Mcneill MD Work Phone: Start: 08-12-2021 End: 08-12-2021 Urine test visual color cmprsn meths Brandi Mcneill MD Work Phone: Start: 04-02-2021 POC COVID-FLU ALISE Osmani Jtet MD Work Phone: Start: 04-02-2021 Iaadiadoo streptococcus group a Osmani Jett MD Work Phone: Start: 04-05-2018 End: 04-05-2018 Choriogonadotropin ( test) [Presence] in Urine Saroj Harris Work Phone: Start: 04-05-2018 End: 04-05-2018 Complete blood count with white cell differential, automated Saroj Harris Work Phone: Start: 04-05-2018 End: 04-05-2018 Complete blood count with white cell differential, manual Saroj Harris Work Phone: Start: 04-05-2018 End: 04-05-2018 Comprehensive metabolic 2000 panel - Serum or Plasma Saroj Harris Work Phone: Start: 04-05-2018 End: 04-05-2018 ORELLANA TOP Triage Protocol Emergency Start: 04-05-2018 End: 04-05-2018 LIGHT GREEN TOP Triage Protocol Emergency Start: 04-05-2018 End: 04-05-2018 RAINBOW DRAW Triage Protocol Emergency Start: 04-05-2018 End: 04-05-2018 Urinalysis Saroj Kevin er Work Phone: Start: 04-02-2018 End: 04-02-2018 Urinalysis, automated Milagros Darby frida Work Phone: Plan of Treatment Date Care Activity Detail Author Start: 2048 Zoster Vaccines (1 of 2) Zoste r Vaccines (1 of 2) [facility] Start: 12-04-2021 Influenza vaccination INFLUENZ A VACCINE (Season Ended) [facility] Start: 08-12-2021 Adolescent depressio n screening assessment Depression Screening [facility] Start: 08-12-2021 Hepatitis C screening Hepatitis C Sc reening [facility] Start: 08-12-2021 HIV screening HIV Screening [facility] Start: 08-12-2021 Lipid panel Cholesterol Sc reening (Lipid Panel) [facility] Start: 08-12-2021 Screening for Chlamy buddy trachomatis Gonorrhea/Chlamydia Screening [facility] Start: 08-12-2021 Social Influencers o f Health Screening Social Influencers of Health Screening [facility] Start: 02-06-2021 COVID-19 VACCINE (3 - Booster for Pfizer series) COVID-19 VACCINE (3 - Booster for Pfizer series) [facility] Start: 12-04-2020 Influenza vaccination Influenza Vacc ine (#1) [facility] Start: 05-08-2020 DTaP,Tdap,and Td Vac cines (7 - Td or Tdap) DTaP,Tdap,and Td Vaccines (7 - Td or Tdap) [facility] Start: 05-08-2020 Tetanus vaccination TETANUS EVERY 10 YR [facility] Start: 09-07-2019 Screening for malign ant neoplasm of cervix [facility] Start: 12-04-2017 Influenza vaccination SEQUENTI AL INFLUENZA VACCINE (#1) [facility] Start: 2017 DTaP/Tdap/Td Vaccine s (1 - Tdap) DTaP/Tdap/Td Vaccines (1 - Tdap) [facility] Start: 2017 Third diphtheria, te tanus and acellular pertussis (DTaP) vaccination TDAP (ADULT) [facility] Start: [address] [facility] Start: 2014 Screening for Chlamy buddy trachomatis CHLAMYDIA SCREEN [facility] Start: 2013 HIV screening HIV SCREENING DISCUSSION [facility] Start: 2009 HPV Vaccines (1 - 2- dose series) HPV Vaccines (1 - 2-dose series) [facility] Start: 2009 Vaccination for azalea n papillomavirus [facility] Start: 2004 PNEUMOCOCCAL VACCINE SERIES (1 - PCV) PNEUMOCOCCAL VACCINE SERIES (1 - PCV) [facility] Start: 09-07-2003 COVID-19 Vaccine (1) COVID-19 Vaccin e (1) [facility] Start: 1998 GONORRHEA SCREEN GONORRHEA SCREEN [facility] Start: 1998 Hepatitis C antibody , confirmatory test HEPATITIS C VIRUS SCREENING [facility] Start: 1998 Hepatitis C screening Hepatitis C Sc reening [facility] Start: 1998 HIV screening HIV Screening [facility] Start: 1998 Tetanus vaccination TETANUS EVERY 10 YR [facility] End: 04-05-2018 Bacteria identified Aer cx Nom (Unsp spec) Urine Aerobic Culture Routine Once for 1 Occurrences starting 04/05/2018 until 04/05/2018 [facility] Comment on above: Once for 1 Occurrenc es starting 04/05/2018 until 04/05/2018 Streptococcus pyogen es Ag [Presence] in Throat by Rapid immunoassay Strep A culture, throat Microbiology Routine COVID-19 04/02/2021 2:52 PM EST [facility] Work Phone: Payers Date Payer Category Payer Private Health Insurance [facility] [id number] 2021-Present [address] [address] [place] [address] [id number] 2020 Unknown [id number] 2016 Unknown [id number] 1998 Unknown [id number] [id number] 1998 Unknown [id number] [id number] 1998 Unknown [id number] 1998 Unknown [id number] [id number] 1998 Unknown [id number] 1998 Unknown [id number] [id number] 1998 Unknown [id number] [id number] 1998 Unknown [id number] 1998 Unknown [id number] [id number] 1959 Unknown [id number] 1959 Unknown [id number] Social History Date Type Detail Facility Start: 04-02-2018 End: 08-12-2021 Tobacco smoking status NHIS Never smoker [facility] Start: 1998 [facility] Start: 04-02-2021 End: 07-30-2021 Tobacco use and exposure Never used [facility] Start: 04-02-2021 End: 08-12-2021 Alcohol intake Current drinker of alcohol (finding) [facility] Exposure to SARS-CoV-2 (event) Yes [facility] Start: 07-30-2021 Tobacco smoking status NHIS Smokes tobacco daily [facility] Start: 07-30-2021 History SDOH Alcohol Comment occassionally [facility] Start: 08-12-2021 Tobacco use and exposure User of smokeless tobacco [facility] Start: 08-02-2021 End: 08-12-2021 Exposure to SARS-CoV-2 (event) Not sure [facility] Clinical Note 09-22-2023 Note Date & Type Note Facility 09-22-2023 Note Patient Education Ma terials Follows: Antibiotic Medicine, Adult Antibiotic medicines are used to treat infections caused by bacteria. These medicines do not work for illnesses caused by viruses. Antibiotics work by killing the bacteria that are making you sick, but they can also have serious side effects. Antibiotics must be used safely and only when needed. When do I need to take antibiotics? You may need antibiotics for: ? A urinary tract infection (UTI). ? Strep throat. ? Bacterial sinus infection. ? Meningitis. ? Serious lung infections. Your health care provider may start you on antibiotics while you are waiting for test results. Tests may include a culture of the throat, urine, blood, or mucus. Your health care provider may change or stop your antibiotic depending on your test results. When are antibiotics not needed? You do not need antibiotics for most common illnesses. These illnesses may be caused by a virus, not by bacteria. You do not need antibiotics for: ? The common cold. ? The flu (influenza). ? Sore throat. ? Discolored mucus. ? Bronchitis. Antibiotics are not always needed for all infections caused by bacteria. Many of these infections clear up on their own. Do not take antibiotics when they are not needed. How long should I take my antibiotic? You must take the entire amount prescribed to you. Take your antibiotics as told by your health care provider. Do not stop taking your antibiotics even if you start to feel better. If you stop taking them too soon: ? You may feel sick again. ? Your infection may get harder to treat. Each course of antibiotics needs a different length of time to work. The length of time may vary from a few days to a few weeks. What if I miss a dose? Try not to miss any doses of medicine. If you miss a dose, call your health care provider or pharmacist for help. Sometimes, it is okay to take the missed dose as soon as possible. Do not take double or extra doses. What are the risks of taking antibiotics? Antibiotics can cause: ? Allergic reactions. ? Nausea. ? Yeast infections. ? Liver problems. Antibiotics can also cause an infection called Clostridioides difficile (C. difficile or C. diff), which causes severe diarrhea. This infection happens when the antibiotics kill the healthy bacteria in your intestines. This allows C. diff to grow. C. diff needs to be treated right away. Let your health care provider know if: ? You have diarrhea while taking an antibiotic. ? You have diarrhea after you stop taking an antibiotic. C. diff infection can start weeks after stopping the antibiotic. Taking an antibiotic also puts you at risk for getting sick in the future with bacteria that do not respond to medicine (antibiotic-resistant infection). Antibiotics can cause bacteria to change so that if the antibiotic is taken again, the medicine cannot kill the bacteria. These infections can be more serious because they are hard, or sometimes impossible, to treat. Do antibiotics affect control? control pills may not work while you are taking antibiotics. If you are taking control pills: ? Keep taking them as usual. ? Use a second form of control, such as a condom, to avoid unwanted . Do this for as long as told by your health care provider. What else should I know about taking antibiotics? ? Take antibiotics exactly as told. ? Take the correct amount of medicine at the same time each day. ? Ask your health care provider: ? How long to wait between doses. ? If you should take your antibiotic with food or water. ? If you should avoid certain foods, drinks, or medicines while taking your antibiotics. ? If you need to watch for any side effects. ? Use only the antibiotics prescribed to you by your health care provider. Do not use antibiotics prescribed for someone else. ? Drink a large glass of water when taking your antibiotics unless told otherwise. Drink enough fluid to keep your urine pale yellow. ? Ask your pharmacist for a dosage syringe, cup, or spoon that correctly measures your antibiotics. ? Ask your pharmacist or health care provider how to safely get rid of leftover medicine. Follow these instructions at home: ? Take your antibiotics as told by your health care provider. Do not stop taking your antibiotics even if you start to feel better. ? Return to your normal activities as told by your health care provider. Ask your health care provider what activities are safe for you. Contact a health care provider if: ? Your symptoms get worse. ? You have new joint pain or muscle aches that begin after starting your antibiotic. ? You have side effects from your antibiotic, such as: ? Stomach pain. ? Diarrhea. ? Nausea. ? White patches in your mouth or throat. Get help right away if: ? You have signs of a severe allergic reaction to antibiotics. If you have (more content not included)... [facility] History of Present illness Narrative 08-12-2021 Aretha Cole RN - 08/12/2021 7:31 AM EDT Note Date & Type Note Facility 08-12-2021 History of Presen t illness Narrative Recently dx with kid stones to right side pt here for increased pain to right flank. Pt currently on ATB for kid stones documented in this encounter [facility] History of Present illness Narrative 07-30-2021 Vita Ballesteros MD - 07/30/2021 1:00 PM EDTLuis E Martin MD - 07/30/2021 1:00 PM EDT Note Date & Type Note Facility 07-30-2021 History of Present illness Narrative Orthopaedic Surgery Attending (Spine) I have personally seen and examined Baron De Leon and reviewed the relevant images in conjunction with the NAOMI or resident/fellow. I independently interviewed, examined and formulated the medical decision making along with him or her and provided a substantive portion of the care for this patient. I personally performed all aspects of the medical decision making for this encounter. I agree with the clinical history, physical examination, and management plan detailed in the above note. I have personally discussed the diagnosis and management with the patient and family. Vita Ballesteros MD Referring provider: Cristi Esteban MD Chief Complaint / Reason for Visit : low back pain Occupation: [employer] HPI: Patient is a 20 y.o. right Hand Dominant female who presents with pain 90/10 (Axial / Extremity %). They describe their pain as originating in her lower lumbar spine. The pain radiates distally into her left proximal lateral thigh. The symptoms started many years ago (2013, gymnastics injury). Symptoms are increased by forward flexion and are decreased by rest/decreased activity. The patient denies decreased walking tolerance. The patient denies gait instability or fine motor change. Denies bowel/bladder complaints. Patient denies constitutional symptoms: nausea, vomiting, fever, chills, sweats, weight gain/loss. Doing well today though endorses a baseline ache of her back She is s/p L4-5 microdiscectomy at OSH in 06/2016 which provided her 6 months of relief, follow by reoccurrence of pain (the same pain that she is here for today). No post-op complications She is on diclofenac and tizanidine She does a HEP, and strengthening Last physical therapy was in without improvement. History of lumbar injections 2-3 weeks ago not under xray guidance without improvement. She has tried chiropractor and massage therapy She uses e cigarettes The patient has attempted: OTC or Rx Anti-inflammatory: ibuprofen, diclofenac, meloxicam; temporarily effective for several week(s). Rest/ activity modification: temporarily effective for several week(s). Opioids: NA PT: Last done in 2014 without significant relief Steroid injection: 2-3 weeks ago at OSH, no relief Additional treatments: tizanidine, massage/chiropractor therapy. History of lumbar injections 2-3 weeks ago not under xray guidance without improvement. Chart notes and referral notes reviewed. Review of Systems: Chart review of systems was reviewed prior to the interview. A subset of that information is presented below. Constitutional: - Unexplained Weight Loss No - Fever/chills No Chest: - Chest Pain No - Shortness of Breath No - Abdominal Pain No Musculoskeletal: -spine or extremity pain Yes Neurological: -Extremity numbness No -Tingling No - Weakness No GI/: - Bowel incontinence No - Bladder incontinence No Bleeding disorders: - DVT/PE No - increased clotting disorder No - increased bleeding disorder No Past Medical History: Past Medical History: Diagnosis Date Kidney stone Past Surgical History: Past Surgical History: Procedure Laterality Date LUMBAR DISKECTOMY 2017 WISDOM TEETH EXTRACTION 2015 TONSILLECTOMY 2005 Social History: Smoking e-vape , ETOH 1 night/wk Social History Occupational History Not on file Tobacco Use Smoking status: Current Every Day Smoker Smokeless tobacco: Never Used Vaping Use Vaping Use: Every day Substances: Nicotine Devices: Disposable Substance and Sexual Activity Alcohol use: Yes Comment: occassionally Drug use: Never Sexual activity: Not on file Family History: No family history on file. Medications: Outpatient Medications Prior to Visit Medication Sig Dispense Refill diclofenac EC [address] tablet Take 75 mg by mouth 2 times daily. norethindrone-ethinyl estradiol 1-20 MG-MCG tablet Take 1 tablet by mouth daily. sulfamethoxazole-trimethoprim 800-160 MG per tablet tiZANidine 4 MG tablet Take 8 mg by mouth at bedtime. No facility-administered medications prior to visit. Allergies: has No Known Allergies. Physical Exam: General: Vitals: 07/30/21 1316 Pulse: 66 Temp: 97 degrees F (36.1 degrees C) SpO2: 98% Weight: 59.9 kg (132 lb) Height: 1.689 m (5' 6.5 ) No acute distress Psych: A+Ox3, Affect is neutral Gait: Gait: unremarkable gait pattern; no obvious abnormalities noted Heel and toe walking: able to be performed Tandem gait: able to be performed Rhomberg sign: Negative Peripheral Vascular: LE swelling No Fingers/toes warm, well perfused. DP/PT palpable, capillary refill < 2 seconds Skin: Lesions on Skin No Spine: No skin lesions, ulcers noted. No visual asymmetry or rotation in cervicothoracolumbosacral spine noted. TTP over L PSIS Range of motion of the lumbar spine is slightly limited in flexion, extension, lateral bending, and rotation Dysraphism (neural tube defect): none, Prior surgical scars: well healed midline scar Neuro: Upper extremity (R/L): deltoids R 5/5 L 5/5, biceps R 5/5, L 5/5, wrist extensors R 5/5 L 5/5, triceps R 5/5, L 5/5, finger flexors R 5/5, L 5/5, and first dorsal interossei R 5/5 L 5/5. Lower extremity (R/L): hip flexors R 5/5, L 5/5, quadriceps R 5/5, L 5/5, anterior tibialis R 5/5, L 5/5, EHL R 5/5 L 5/5, hamstrings R 5/5, L 5/5, gastrocsoleus R 5/5, L 5/5. Reflexes (R/L): biceps R +2 / L +2, triceps R +2 / L +2, brachioradialis R +2 / L +2, patellar R +2 / L +2, Achilles deep tendon R +2 / L +2. Clonus (R/L): 0 beats/0 beats Negative bilateral upper extremities Hoffmans Negative bilateral upper extremities Spurlings Babinksi (R/L): downgoing/downgoing Lhermitte s: negative Straight leg raise (R/L): negative/negative Sensation to light touch in the upper and lower extremities are intact. Imaging Independent review Plain xrays (lumbar spine 07/30/2021): reveals diffuse spondylosis MRI (lumbar spine 07/22/2021): REPORT only IMPRESSION: L4-5 posterior annular tear and mild diffuse disc bulging without significant foraminal or central canal stenosis. No significant change Clinical impression: Patient is a 20 y.o. female who presents with low back pain History of lumbar decompression, elsewhere Plan: The natural history and course of the symptomatology of the above diagnosis was discussed in detail with the patient. I answered all questions regarding the mode of onset, pathophysiology, symptoms, imaging findings, treatment options. Recommend continued conservative treatment. Recommend referral to [facility] (Dr. Shaffer). Follow up PRN from ortho spine. Plan of care discussed. All questions answered. The patient verbalized understanding of the disease process and agreed to the treatment plan formulated for this visit. Payam Martin MD. Ortho. Parts of this composition was written using voice recognition software. Please ignore any minor spelling or grammatical issues. Please use the [employer] Secure Chat for correspondences. [id number] for emergent issues. Thank you! documented in this encounter [facility] History of Present illness Narrative 04-02-2021 Osmani Jett MD - 04/02/2021 2:00 PM ESTRtomasa Ling LPN - 04/02/2021 2:00 PM EST Note Date & Type Note Facility 04-02-2021 History of Present illness Narrative Subjective Patient ID: Baron De Leon is a 20 y.o. female. Congestion and cough x 2 days. The following portions of the chart were reviewed this encounter and updated as appropriate: Review of Systems Constitutional: Negative for fever. HENT: Positive for congestion and sore throat. Respiratory: Positive for cough. Cardiovascular: Negative for chest pain. Gastrointestinal: Negative for nausea and vomiting. Genitourinary: Negative for dysuria and urgency. Skin: Negative for rash. Neurological: Positive for headaches. Objective Physical Exam Vitals reviewed. Constitutional: Appearance: Normal appearance. She is well-developed. HENT: Head: Normocephalic and atraumatic. Nose: Congestion and rhinorrhea present. Mouth/Throat: Pharynx: Posterior oropharyngeal erythema present. No oropharyngeal exudate. Eyes: Extraocular Movements: Extraocular movements intact. Conjunctiva/sclera: Conjunctivae normal. Pupils: Pupils are equal, round, and reactive to light. Cardiovascular: Rate and Rhythm: Normal rate. Heart sounds: No murmur heard. Pulmonary: Effort: Pulmonary effort is normal. Breath sounds: Normal breath sounds. Skin: General: Skin is warm and dry. Neurological: General: No focal deficit present. Mental Status: She is alert and oriented to person, place, and time. Psychiatric: Mood and Affect: Mood normal. Behavior: Behavior normal. Thought Content: Thought content normal. Judgment: Judgment normal. Procedures Assessment/Plan Diagnoses and all orders for this visit: COVID-19 - POC Influenza A/B and SARS Antigen manually resulted - POCT rapid strep A manually resulted - Strep A culture, throat PT ARRIVES TO ROOM 10. PT C/O SORE THROAT, COUGHING AND FATIGUE X ONE DAY. PT DENIES ANY FEVERS AT THIS TIME. PT TOOK ADVIL COLD AND SINUS WITH SOME RELIEF. documented in this encounter [facility] Instructions 04-02-2021 Patient Instructions Note Date & Type Note Facility 04-02-2021 Instructions Osmani Jett MD - 04/02/2021 2:00 PM EST Images from the original note were not included. Patient Education Discharge Instructions for COVID-19 (Suspected or Confirmed ) You have been tested for or diagnosed with COVID-19. It is an infection caused by a new type of coronavirus. COVID-19 will cause cold-like or mild flu symptoms in most. It can cause more severe symptoms like problems breathing in some. Steps to Take Self-Care Rest as needed. Healthy habits may help you feel better. Steps include: Choose healthy foods including fruits and vegetables. Drink water throughout the day. Get plenty of sleep each night. If you smoke, try to quit. It may ease breathing. Avoid alcohol. Keep Others Healthy The virus can spread to others. Droplets are released every time you sneeze or cough. The droplets can get into the mouth, nose, or eyes of people near you and lead to infection. Stay at home until your doctor has said it is safe to leave. If you tested positive this will mean staying isolated until all of the following are true: At least 10 days have passed since the start of illness. Those with a weakened immune system may need to be in isolation for up to 20 days. You are free of fever for at least 24 hours without the use of medicine. Symptoms, like cough, are getting better. Loss of taste and smell may last weeks but should not delay end of isolation. *If you tested positive but did not have symptoms, stay in isolation for 10 days after the test. During this time: Avoid public areas, events, or transportation. Do not return to work or school until your doctor has said it is safe to do so. Call ahead if you need to go to a medical center. Let them know you may have COVID-19. It will help them guide you where to go. They may also ask you to wear a facemask when you come to the office. If you call for emergency medical services, let them know you may have COVID-19. While at home: Try to avoid close contact with others. Stay about 6 feet away. If possible, spend most of your time in a separate room from others. Use a face mask if you will be in close contact with others such as sharing a room or vehicle. They should wear a mask as well. Cough or sneeze into a tissue. Throw the tissue away right after use. If a tissue is not available, cough or sneeze into your elbow. Wash your hands often. Always wash them after sneezing or coughing. Use soap and water and wash for at least 20 seconds. Alcohol based hand high pressure cleaner can be used if soap and water is not available. Do not prepare food for others. Avoid sharing personal items like forks, spoons, or toothbrushes. Avoid close contact with pets while you are sick. There is no evidence of the virus passing to pets. This is a safety step until more is known about this virus. Isolation can be frustrating. Social interaction can help. Keep in touch with friends and family through phone and tech options. Interact with others in your home, just keep a safe distance of about 6 feet. Follow-up Your doctor s office will check in with you to see if there are any changes in your health. You may be asked to keep track of symptoms to share with them. They will also let you know when you are clear to be in public again. Problems to Look Out For Contact your doctor if your recovery is not going as you expect. Get emergency care if you have problems such as: Trouble breathing Nonstop chest pain or pressure Changes in awareness, confusion, or problems waking Lips or face have bluish color Worsening of symptoms If you think you have an emergency, call for emergency medical services right away. Last Reviewed: June 2020 [facility] [place] Luis E Bojorquez MD Updated: 07/05/2020 [facility] [place] in this encounter [facility] Evaluation note Note Date & Type Note Facility Evaluation note Diagnosis COVID-19- Primary documented in this encounter [facility] Evaluation note Note Date & Type Note Facility Evaluation note Diagnosis Low back pain, unspecified back pain laterality, unspecified chronicity, unspecified whether sciatica present- Primary Lumbar degenerative disc disease Degeneration of lumbar or lumbosacral intervertebral disc Low back pain, unspecified back pain laterality, unspecified chronicity, unspecified whether sciatica present documented in this encounter [facility] Evaluation note Note Date & Type Note Facility Evaluation note Diagnosis Flank pain- Primary Abdominal pain, unspecified site documented in this encounter [facility] Discharge instructions Attachments Note Date & Type Note [facility] Discharge instructions The following attachments cannot be sent through Care Everywhere.Flank Pain (Chadian)documented in this encounter [facility] Instructions * Patient Instructions - Milagros Liu MD - 04/02/2018 8:01 PM EST Formatting of this note may be different from the original. Urinary Tract Infection in Women: Care Instructions Your Care Instructions A urinary tract infection, or UTI, is a general term for an infection anywhere between the kidneys and the urethra (where urine comes out). Most UTIs are bladder infections. They often cause pain or burning when you urinate. UTIs are caused by bacteria and can be cured with antibiotics. Be sure to complete your treatment so that the infection goes away. Follow-up care is a camacho part of your treatment and safety. Be sure to make and go to all appointments, and call your doctor if you are having problems. It's also a good idea to know your test resultsand keep a list of the medicines you take. How can you care for yourself at home? Take your antibiotics as directed. Do not stop taking them just because you feel better. You need to take the full course of antibiotics. Drink extra water and other fluids for the next day or two. This may help wash out the bacteria that are causing the infection. (If you have kidney, heart, or liver disease and have to limit fluids, talk with your doctor before you increase your fluid intake.) Avoid drinks that are carbonated or have caffeine. They can irritate the bladder. Urinate often. Try to empty your bladder each time. To relieve pain, take a hot bath or lay a heating pad set on low over your lower belly or genital area. Never go to sleep with a heating pad in place. To prevent UTIs Drink plenty of water each day. This helps you urinate often, which clears bacteria from your system. (If you have kidney, heart, or liver disease and have to limit fluids, talk with your doctor before you increase your fluid intake.) Urinate when you need to. Urinate right after you have sex. Change sanitary pads often. Avoid douches, bubble baths, feminine hygiene sprays, and other feminine hygiene products that havedeodorants. After going to the bathroom, wipe from front to back. When should you call for help? Call your doctor now or seek immediate medical care if: Symptoms such as fever, chills, nausea, or vomiting get worse or appear for the first time. You have new pain in your back just below your rib cage. This is called flank pain. There is new blood or pus in your urine. You have any problems with your antibiotic medicine. Watch closely for changes in your health, and be sure to contact your doctor if: You are not getting better after taking an antibiotic for 2 days. Your symptoms go away but then come back. Where can you learn more? Log into your personal health record on [email or web address] and enter K848 in the Education box to learn more about Urinary Tract Infection in Women: Care Instructions. Current as of: June 22, 2017 Content Version: 11.9 7817-4238 [employer]auzz. Care instructions adapted under license by your healthcare professional. If you have questions about a medical condition or this instruction, always ask your healthcare professional. [employer] disclaims any warranty or liability for your use of this information. in this encounter History of Present Illness * Milagros Liu MD - 04/02/2018 8:17 PM EST Formatting of this note may be different from the original. PATIENT NAME: Baron De Leon [facility] [address] [place] [id number] : 2000 DATE OF VISIT: 04/02/2018 #: [id number] PROVIDER: Milagros Liu MD Chief Complaint Patient presents with Urinary Tract Infection painful urination, cloudy, odor, frequency x1-2 weeks SUBJECTIVE 17 y.o. female presents Urinary Tract Infection (painful urination, cloudy, odor, frequency x1-2 weeks) As above, has had 1 UTi previously. MEDICAL ISSUES Past Medical History: Diagnosis Date Degenerative disc disease, lumbar There is no problem list on file for this patient. SOCIAL HISTORY Social History Social History Marital status: Single Spouse name: N/A Number of children: N/A Years of education: N/A Occupational History Not on file. Social History Main Topics Smoking status: Never Smoker Smokeless tobacco: Never Used Alcohol use No Drug use: No Sexual activity: Yes Partners: Male control/ protection: OCP Other Topics Concern Not on file Social History Narrative No narrative on file FAMILY HISTORY History reviewed. No pertinent family history. REVIEW OF SYSTEMS Review of Systems MEDICATIONS PRIOR TO VISIT No current outpatient prescriptions on file prior to visit. No current facility-administered medications on file prior to visit. ALLERGIES/INTOLERANCES Allergies Allergen Reactions Cephalexin Unknown As child OBJECTIVE BP 114/82 Pulse 79 Temp 97.5 F (36.4 C) (Oral) Resp 18 Ht 5' 7 Wt 59 kg (130 lb) SpO2 97% BMI 20.36 kg/m Physical Exam Constitutional: She appears well-developed and well-nourished. HENT: Head: Normocephalic and atraumatic. Abdominal: Soft. There is tenderness in the suprapubic area. There is no CVA tenderness. Neurological: She is alert. Skin: Skin is warm. Psychiatric: She has a normal mood and affect. Her behavior is normal. Nursing note and vitals reviewed. ASSESSMENT/PLAN (expressed as patient instructions): SNOMED CT(R) 1. Urinary tract infection without hematuria, site unspecified URINARY TRACT INFECTIOUS DISEASE POCUrinalysis Dipstick,Auto UC ciprofloxacin HCl (CIPRO) 500 MG tablet phenazopyridine (PYRIDIUM) 200 MG tablet ADDITIONAL CLINICAL COMMENTS None Procedures ORDERS PLACED THIS VISIT Orders Placed This Encounter Procedures POC Urinalysis Dipstick,Auto UC UA abnormal MEDICATION LIST AT END OF VISIT Current Outpatient Prescriptions Medication Sig Dispense Refill fluticasone (FLONASE) 50 mcg/actuation nasal spray 2 sprays by Each Nare route daily . 0 04/24, , 1-20 mg-mcg per tablet Take 1 tablet by mouth daily . 4 meloxicam (MOBIC) 7.5 MG tablet Take 7.5 mg by mouth daily . tiZANidine (ZANAFLEX) 4 MG tablet Take by mouth 3 (three) times a day . ciprofloxacin HCl (CIPRO) 500 MG tablet Take 1 (one) tablet (500 mg total) by mouth 2 (two) times aday for 3 days . 6 tablet 0 phenazopyridine (PYRIDIUM) 200 MG tablet Take 1 (one) tablet (200 mg total) by mouth 3 (three) times a day for 10 doses . 10 tablet 0 No current facility-administered medications for this visit. MEDICATIONS STOPPED or CHANGED THIS VISIT There are no discontinued medications. Return for see your PCP. 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 Urinary Tract Infection in Women: Care Instructions Your Care Instructions A urinary tract infection, or UTI, is a general term for an infection anywhere between the kidneys and the urethra (where urine comes out). Most UTIs are bladder infections. They often cause pain or burning when you urinate. UTIs are caused by bacteria and can be cured with antibiotics. Be sure to complete your treatment so that the infection goes away. Follow-up care is a camacho part of your treatment and safety. Be sure to make and go to all appointments, and call your doctor if you are having problems. It's also a good idea to know your test resultsand keep a list of the medicines you take. How can you care for yourself at home? Take your antibiotics as directed. Do not stop taking them just because you feel better. You need to take the full course of antibiotics. Drink extra water and other fluids for the next day or two. This may help wash out the bacteria that are causing the infection. (If you have kidney, heart, or liver disease and have to limit fluids, talk with your doctor before you increase your fluid intake.) Avoid drinks that are carbonated or have caffeine. They can irritate the bladder. Urinate often. Try to empty your bladder each time. To relieve pain, take a hot bath or lay a heating pad set on low over your lower belly or genital area. Never go to sleep with a heating pad in place. To prevent UTIs Drink plenty of water each day. This helps you urinate often, which clears bacteria from your system. (If you have kidney, heart, or liver disease and have to limit fluids, talk with your doctor before you increase your fluid intake.) Urinate when you need to. Urinate right after you have sex. Change sanitary pads often. Avoid douches, bubble baths, feminine hygiene sprays, and other feminine hygiene products that havedeodorants. After going to the bathroom, wipe from front to back. When should you call for help? Call your doctor now or seek immediate medical care if: Symptoms such as fever, chills, nausea, or vomiting get worse or appear for the first time. You have new pain in your back just below your rib cage. This is called flank pain. There is new blood or pus in your urine. You have any problems with your antibiotic medicine. Watch closely for changes in your health, and be sure to contact your doctor if: You are not getting better after taking an antibiotic for 2 days. Your symptoms go away but then come back. Where can you learn more? Log into your personal health record on [email or web address] and enter K848 in the Education box to learn more about Urinary Tract Infection in Women: Care Instructions. Current as of: June 22, 2017 Content Version: [id number] [employer]. Care instructions adapted under license by your healthcare professional. If you have questions about a medical condition or this instruction, always ask your healthcare professional. [employer] disclaims any warranty or liability for your use of this information. in this encounter Reason for Referral Specialty Diagnoses / Procedures Referred By Erik robert Referred To Contact Physical Medicine & Rehabilitation Diagnoses Lumbar degenerative disc disease Vita Ballesteros MD [address] [place] [phone] Referral ID Status Reason Start Date Expiration Date V isits Requested Visits Authorized [id number] New Request 07/30/2021 08/24/2022 1 1 Specialty Diagnoses / Procedures Referred By Contac t Referred To Contact Diagnoses Low back pain, unspecified back pain laterality, unspecified chronicity, unspecified whether sciatica present Procedures QUESTIONNAIRE SERIES Vita Ballesteros MD [address] [place] [address] Referral ID Status Reason Start Date Expiration Date V isits Requested Visits Authorized [id number] New Request 07/28/2021 08/22/2022 1 1 Additional Source Comments Reason for Visit (unrecogniz ed section and content) Reason Comments Urinary Tract Infection painful urinatio n, cloudy, odor, frequency x1-2 weeks Reason Comments Flank Pain Reason Comments Sore Throat Cough Fatigue Headache Reason Comments New Patient Specialty Diagnoses / Procedures Referred By Contac t Referred To Contact Spine Diagnoses Lumbar pain Cristi Esteban MD [address] [place] [address] Referral ID Status Reason Start Date Expiration Date V isits Requested Visits Authorized [id number] Pending Review 07/26/2021 08/20/2022 1 1 INFORMATION SOURCE (unrecogn ized section and content) DATE CREATED AUTHOR 04/03/2018 [facility] DATE CREATED AUTHOR AUTHOR'S ORGANIZ ATION 04/07/2018 [facility] DATE CREATED AUTHOR AUTHOR'S ORGANIZ ATION 04/05/2021 [facility] DATE CREATED AUTHOR AUTHOR'S ORGANIZ ATION 08/05/2021 [facility] DATE CREATED AUTHOR AUTHOR'S ORGANIZ ATION 08/13/2021 [facility] DATE CREATED AUTHOR AUTHOR'S ORGANIZ ATION 08/19/2022 [facility] DATE CREATED AUTHOR AUTHOR'S ORGANIZ ATION 09/11/2023 [facility] EPIC DATE CREATED AUTHOR AUTHOR'S ORGANIZ ATION 10/07/2023 [facility] ED Notes - Goldie Sanders RN - 04/05/2018 12:35 PM [facility] Attestation Note - Saroj Harris DO - 04/05/2018 12:32 PM [facility] Notes - Goldie Sanders RN - 04/05/2018 12:13 PM EST Miscellaneous Notes (unrecog nized section and content) Lab called about patient's Urine culture.. ED Attestation: I have reviewed the resident's documention. In addition, I have personally introduced myself to the patient, and have taken her history and performed an examination. I agree with the physical findings, management, clinical impression and disposition. In brief, she is a 17 y.o. female who presents with a chief complaint of Flank Pain. 17-year-old female presents the emergency department complaining of right flank pain. She has been having urinary symptoms she went to an urgent care a few days ago was given a prescription for antibiotics which she has not yet filled. Today she was going to get it filled and began experiencing right flank pain and elected to come to the emergency department currently the patient is awake alert aware she is in mild distress at rest vital signs are noted lungs are clear heart rate and rhythm is regular abdomen is soft there is right flank tenderness to percussion. Medical decision making the patient is examined as stated above urinalysis does show evidence of infection likely a sending urinary tract infection. She is not however she is on tizanidine making it difficult to use Cipro she is placed on Levaquin Saroj Harris DO, FACOEP-D ED Attending Physician [facility] Emergency Department (Please note that portions of this note have been completed with a voice recognition software. Efforts were made to correct any errors, but occasionally words are mis-transcribed.) Patient is resting comfortably. Call light within reach. Patient updated on continued plan of care. Formatting of this note may be different from the original. [facility] ED Resident Note: NAME: Baron De Leon 17 y.o. CSN: [id number] PCP: Physician No History: Chief Complaint: Flank Pain HPI: HPI 17-year-old female with past medical history of degenerative disc disease presenting with right-sided flank pain. Patient states of the past week and a half she has had dysuria polyuria and feeling like she has not been voiding completely. She states she went to an urgent care and they diagnosed her with a UTI. She states that she went to go to the pharmacy to fern picker her antibiotic this morning and to get some Pyridium when she started having right sided flank pain that was constant and sharp. She was concerned that she may have a kidney infection so she presents the ER. She is not taking any antibiotics. Denies any fevers, chills, nausea or vomiting. States that she started her menstrual period today. PMHx: Past Medical History: Diagnosis Date Degenerative disc disease, lumbar PMSx: Past Surgical History: Procedure Laterality Date LUMBAR DISCECTOMY 06/2016 L4-5 TONSILLECTOMY FAM. Hx: History reviewed. No pertinent family history. SOC. Hx: Social History Social History Marital status: Single Spouse name: N/A Number of children: N/A Years of education: N/A Occupational History Not on file. Social History Main Topics Smoking status: Never Smoker Smokeless tobacco: Never Used Alcohol use No Drug use: No Sexual activity: Yes Partners: Male control/ protection: OCP Other Topics Concern Not on file Social History Narrative No narrative on file MEDs: Current Facility-Administered Medications Medication Dose Route Frequency Provider Last Rate Last Dose sodium chloride (PF) (NS) flush 5 mL 5 mL Intravenous PRN Triage Protocol Emergency, Current Outpatient Prescriptions Medication Sig Dispense Refill ciprofloxacin HCl (CIPRO) 500 MG tablet Take 1 (one) tablet (500 mg total) by mouth 2 (two) times a day for 3 days . 6 tablet 0 fluticasone (FLONASE) 50 mcg/actuation nasal spray 2 sprays by Each Nare route daily . 0 JUNE04/24, , 1-20 mg-mcg per tablet Take 1 tablet by mouth daily . 4 meloxicam (MOBIC) 7.5 MG tablet Take 7.5 mg by mouth daily . phenazopyridine (PYRIDIUM) 200 MG tablet Take 1 (one) tablet (200 mg total) by mouth 3 (three) times a day for 10 doses . 10 tablet 0 tiZANidine (ZANAFLEX) 4 MG tablet Take by mouth 3 (three) times a day . ALL: Allergies Allergen Reactions Cephalexin Unknown As child ROS: Review of Systems Positives and pertinent negatives as per HPI. All other systems were reviewed and are negative. Physical Exam: Patient Vitals for the past 24 hrs: BP Temp Temp src Pulse Resp SpO2 Height Weight 04/05/18 1244 (!) 100/59 - - 88 16 100 % - - 04/05/18 1213 (!) 98/59 - - 91 17 100 % - - 04/05/18 1108 120/76 98.3 F (36.8 C) Oral 98 16 100 % 5' 7 59 kg (130 lb) Physical Exam Constitutional: She is oriented to person, place, and time. She appears well-developed and well-nourished. No distress. HENT: Head: Normocephalic. Eyes: Conjunctivae and EOM are normal. Neck: Normal range of motion. Neck supple. Cardiovascular: Normal rate and regular rhythm. Pulmonary/Chest: Effort normal and breath sounds normal. No respiratory distress. She has no wheezes. She has no rales. Abdominal: Soft. She exhibits no distension. There is no tenderness. There is no rebound and no guarding. Right CVA tenderness. No left CVA tenderness. Musculoskeletal: Normal range of motion. Neurological: She is alert and oriented to person, place, and time. Skin: Skin is warm and dry. Capillary refill takes less than 2 seconds. She is not diaphoretic. Psychiatric: She has a normal mood and affect. Nursing note and vitals reviewed. Laboratory & Radiological Imaging (if done): Labs Reviewed URINALYSIS - Abnormal; Notable for the following: Result Value Color, Urine Red (*) Clarity, Urine Cloudy (*) Protein, Urine 100 (*) Blood, Urine Large (*) Leukocyte Esterase, Urine Moderate (*) WBCs, Urine 179 (*) RBCs, Urine >180 (*) Bacteria, Urine Few (*) WBC Clumps, Urine Rare (*) Squamous Epithelial 11 (*) Mucus, Urine Few (*) All other components within normal limits Narrative: Microscopic examination is performed on all urinalysis samples and only positive findings are reported. The test for blood on the chemical analytic portion of urinalysis may also be positive due to hemoglobinuria and myoglobinuria and if red blood cells are present they are quantified by microscopic examination. CBC WITH AUTO DIFFERENTIAL - Abnormal; Notable for the following: WBC 11.39 (*) MPV 8.9 (*) Neutrophils Abs 8.52 (*) All other components within normal limits COMPREHENSIVE METABOLIC PANEL - Normal Narrative: The eGFR should be used for monitoring renal function only and not for medication dosing. HCG URINE, QUALITATIVE - Normal URINE AEROBIC CULTURE CBC AND DIFFERENTIAL Narrative: The following orders were created for panel order CBC w/ Diff. Procedure Abnormality Status --------- ------ CBC Auto Differential[[id number]] Abnormal Final result Please view results for these tests on the individual orders. No orders to display Procedures: None ED Course / Medical Decision Makin-year-old female evaluated today for dysuria, polyuria and right-sided flank pain. Patient is afebrile and nontoxic-appearing she appears well-hydrated. Abdomen soft nontender without guarding. No peritoneal signs. Mild right CVA tenderness. Urine is infected. There is blood however the patient is on her menstrual period. Creatinine is within normal limits. No leukocytosis. Patient has not yet taken her antibiotics for the UTI which she was diagnosed with multiple days ago. She was given a dose of Levaquin here. As she is allergic to Keflex and cannot take Cipro due to her being on Zanaflex. She will be discharged home with Levaquin as this also would cover for pyelonephritis. I provided verbal discharge instructions regarding her emergency department diagnosis. Prognosis, expected clinical course, and return precautions were reviewed. I answered her questions and re-iterated the importance of returning to the emergency department immediately for any new or worsening symptoms. she expressed understanding of the instructions and reported that all of her questions had been answered. Baron De Leon's case was discussed with my attending physician who agrees with her ED management and final disposition. Please refer to their attestation to this encounter for additional information. Clinical Impression: SNOMED CT(R) 1. Acute UTI ACUTE URINARY TRACT INFECTION Disposition: Patient is being Discharge to home Karoline Montanez DO ED Resident Physician [facility] Karoline Montanez DO Resident 04/05/18 1257 Karoline Montanez DO Resident 04/05/18 1257 Patient CC R-sided flank pain that began this morning + dysuria x 1.5 weeks. Denies N/V/D/F/vaginal bleeding or discharge. RR even/unlabored. In NAD. Bed: 36 Expected date: Expected time: Means of arrival: Comments:in this encounter Care Teams (unrecognized sec tion and content) Appointment Setter Relationship Specialty Start Date End Date Cristi Esteban MD [address] [phone] PCP - General Family Medicine 07/28/21 Appointment Setter Relationship Specialty Start Date End Date Cristi Esteban MD [address] [facility] [place] [phone] PCP - General Family Medicine 08/12/21 FOR RECORDS PERTAINING TO PATIENTS WHO ARE OR HAVE BEEN ENROLLED IN A CHEMICAL DEPENDENCY/SUBSTANCEABUSE PROGRAM, SOME INFORMATION MAY BE OMITTED. This clinical summary was aggregated from multiple sources. Caution should be exercised in using it in the provision of clinical care. This summary normalizes information from multiple sources, and as a consequence, information in this document may materially change the coding, format and clinical context of patient data. In addition, data may be omitted in some cases. CLINICAL DECISIONS SHOULD BE BASED ON THE PRIMARY CLINICAL RECORDS. [facility] [employer] [facility]. provides no warranty or guarantee of the accuracy or completeness of information in this document.
[2023-11-11 22:27] VITALS: BP 110/68; PULSE 72; TEMP 36.7; O2SAT 98; BMI 19.0
[2023-11-12 00:04] LABS: Basophils Absolute Auto 0.1 10^3/uL (0.0-0.1); Basophils Percent Auto 0.8 % (0.2-2.0); Eosinophils Absolute Auto 0.2 10^3/uL (0.0-0.7); Eosinophils Percent Auto 2.4 % (0.9-7.0); Hematocrit 43.2 % (36.0-48.0); Hemoglobin 14.9 g/dL (12.0-16.0); Immature Granulocytes Abs Auto 0.04 10^3/uL (0.00-0.03); Immature Granulocytes Pct Auto 0.5 % (0.0-0.5); Lymphocytes Absolute Auto 2.5 10^3/uL (1.2-3.8); Lymphocytes Percent Auto 31.7 % (20.5-60.0); Mean Corpuscular HGB Conc 34.5 g/dL (29.9-35.2); Mean Corpuscular Hemoglobin 32.3 pg (26.7-34.0); Mean Corpuscular Volume 93.5 fL (81.0-99.0); Mean Platelet Volume 8.5 fL (9.5-13.5); Monocytes Absolute Auto 0.7 10^3/uL (0.3-0.8); Monocytes Percent Auto 8.4 % (1.7-12.0); Neutrophils Absolute Auto 4.4 10^3/uL (1.4-6.5); Neutrophils Percent Auto 56.2 % (43.0-75.0); Platelet Count 254 10^3/uL (150-450); Red Blood Count 4.62 10^6/uL (4.20-5.40); White Blood Count 7.9 10^3/uL (4.0-11.0)
[2023-11-12 00:13] LABS: Anion Gap 8.3; BUN Creatinine Ratio 10.7; Calcium 8.7 mg/dL (8.5-10.1); Carbon Dioxide 28.5 mmol/L (21.0-32.0); Chloride 103 mmol/L (98-107); Estimated GFR (African America >60 (>=60); Estimated GFR (Non-African Ame >60 (>=60); Glucose 104 mg/dL (74-106); Potassium 3.8 mmol/L (3.5-5.1); Sodium 136 mmol/L (136-145)
[2023-11-12] MEDS: CEFTRIAXONE 1,000 MG in 0.9 % SODIUM CHLORIDE 50 ML 100 MG IV (00:40)
[2023-11-12] MEDS: KETOROLAC TROMETHAMINE 30 MG/ML VIAL IVP (01:11)
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
[2023-11-12 02:20] VITALS: PULSE 79; O2SAT 99
== END 2023-11-12 02:21 | disposition home or self-care (01) ==
PROVIDERS: Emergency Provider Emergency Medicine; PCP Family Medicine
DX: S90.31XA Contusion of right foot, initial encounter (principal); S90.811A Abrasion, right foot, initial encounter; W22.8XXA Striking against or struck by other objects, initial encounter
CPT/HCPCS: 36415; 73600; 73630; 80048; 85025; 96365; 96375; 99284; J0696; J1885

== ENCOUNTER 2024-02-28 16:11 | Outpatient (OUT) | payer OTHER, SELFPAY ==
--- OUTSIDE RECORDS SUMMARY | 2024-02-28 16:17 | XMS_ITS | CCD ---
Author Organization [facility] Care Team Providers Care Citizen Participation Specialist Name Role Phone No, Physician Unavailable Unavailable NO, PHYSICIAN Unavailable Unavailable MILAGROS LIU Unavailable Unavailab le NO, PHYSICIAN Unavailable Unavailable SAROJ HARRIS Unavailable Unavaila ble Unavailable Primary Care Provider UnavailOSMANI Simmons Attending Unavailable Cristi Esteban MD Primary Care Provider [phone] VITA BALLESTEROS Attending Unavailable CRISTI ESTEBAN Primary [...] Cephalexin; Translations: [CEPHALEXIN] Drug Allergy [address] [facility] (1 source) No Known Medication Allergies; Translations: [No Known Medication Allergies] Propensity to adverse reactions to drug (disorder) [facility] Repository Medications Current Medications Medication Drug Class(es) [...] Coding Summaryon 10-06-2023 Coding Summary HTMLBase 64 ZfgqajkqFIm2mHt+PGhlYWQ+PE 3HPUFpO88seGXpzF1bB3MYTTtX PbqnIERELKaNWrPzazBvQT3jjL NjZXJu IC8+WO0zDSPsCguotBUci4Y3xO A7W81ygp8uECidrUU6MULeGmPf xqvqp5cziNu8NZchGuxkThGk BCLyxZ31CWO1oD86Et93uKPsrG Gdz9micBf5OlLpRSEgFWG0yMrf PPlje3ImFBQkG03ghITkh3C7 IFHmuRllpBJqOnJgoAX4jK6gTJ kaiojbm0mhzxjeVxa6zr95hTDw a9K7nZV2T1YcqmC1UAJvuDIx BrrzeAJOuC5twjysm6pimtnsGe TlSGBiCGn9LZw9NHSodIknDcXo WW79WWI6YIMwgdTqX0MjBWUk oGizIoG9c7J1Jw3YX2UPQovsZ8 VNTUFSWTwvdGQ+OL60ie44I8Mk GcwmMlm6ERSrBHY1xRV9lB6i FQTbOQyel2X8pUH8J1JchfOzkc 0ia8peHEJeKFekZ15cjCFak4F3 CYIvqYJ1OHOnqTqjNvPegJ31 Oyc+NZNvoLqww2HvUuzmz6taw1 uutRd9PcssFIRmkcBqtUupRBW7 a2EjPs0gXVFeeHP9lDO5sC1h IkNrKgO8DRzuZ017AlImkJUbNc zeO32qF9AekHO+IWKqMdf0HWJa wKtxKE1jK2DrAZRtejezoPHw cQxmXT7eETXfcqasZQYnwM5lLF ZrZ4b9IcPnWoP8GKwdG2XeBPJp kkblDm92pJ5kBkYeCcV7FPsx T2HqnkS6QCHnhOJjAKyiHRT9J5 7ku1P6HDEwGEMqVPU2eVW0yZ2b bGlnbjogbGVmdDsgdmVydGlj XEagBWmtQ338NZTwcEyxLwNtTX luZyBEYXRlOiAgMDcvMDMvMjAy NDwvdGQ+BKZyWZL6aIqhDPCw hGVeNFbbQy9egTvkxBypTM2eXO AormnmPAJrkE4mTHEbgHHrrLwe HT4eJPXmeecot575DeUqUHG9 HAYdiBJnU7YseA8dHnGdOLXyWF XbD7PvpIQjODaaM300RMmcJsY4 PVZmquTaX6XqODXwdCiyCpP6 u5U4Ch4Ii6QhqwgiU3LsuUQgTx NrUetrZUj4B3EaSzipxZV+PC90 ENXoVW84USm9ZQC0hNamKEhv KLGzQ5GdkU5yObNoOAIzRKTmJt c+PHRhYmxlIHdpZHRoPScxMDAl VzNxhWdlFR6kHk2yFJOwSZRw tFnkcQOdMrGhs5pqIYInHEnyAU 7scHgyA9AejFF3ONLmm0t2Dl54 I91qO3UqcSH+JBTvvZJ2hAL0 cV5oYzCpJzW3XEggC359EvBfcP IaKqdbb5abr2dtjIh2AoJ3IQFb lpDasZlxTDM9s1KsBg99O66m IHdpZHRoPSIxNSUiIHZhbGlnbj 9qtQ8zWz1+PWCzwYR0qAW0aS7a MyYjNpE4HAuoX089CdPfeFQo Wvvcj9rlh4rswAe8LgVzVHOgbl OshUlzGIZ7h9JfRr34U7IbbGmf g8BgPlb9gy05gKJfk1M4wTE5 K2SwXQPjlikkmPImmYmgAV2uET RpjbphQJFtoU7yDFYuV6e1MjVn RlK7GWqsI3KibhI3KZAhkAUe HMPbcJPIvY4lbdmcz7uzrztfCt BcGAZiMCq9RYs1TOVltLicFpRg VAC9OeI0DVK8cAGkdM3ghFsa njkbmX9zCap+HYP0yPZokVZCZW 1lOjwvdGQ+OGPzNIH8wPhhWNpb VXXhfF1nNOJcH2h9XwQpUgE0 YWgmT0RuvcT0GMRilIUmAUEbzG EStO0zireor9eolfpsTzZuOXQt SPm5SNi7OODfhCvuWcUcRMV4 LuH0UYU4tELgjX9slDfvpctjhM 9wOyc+BqpqcAjaGPB6TLr1T9We Kxm5KFRvgFzeJL6yuYKxFPhg Mq1xvDjbjKghQR5yWBFsqvtch4 48HkVjp9ilYHSclTPaNXklAAR2 E85yi0Z5UOYtDAVkOUO4rSO2 iC6qfRzefcpweUMkeHjjenJykS msXKecPGysI810EMXwlCubFtSb NIn4S8NfJho6MAXdeFipTD4y qMQbEFytEy7fhHhnvMcfJJ8gTB Iglhwxp319TxOtt7pqLOEdtVIw CKgrBIA9Y55nm5N8CUDaEQIg IZL1dMJ7sY3iyMmbmzljaGCclO itpgEccWkxNEfuRJvvZ525CFXn oTkvJvYxrQs2B3SlBpd0UWKk mRagSU1zxOUrBSreAo4xoHyvtL qrEO8uMIOgukiii508EzWwh7en NKEqcXUrFKgrEEH7M02mk1E4 QCWzJNPxCDQ5kXD5xX8olDspac ogbGVmdDsgdmVydGljYWwtYWxp H149QIPsoLoeFiPcoJtpzuSr YPeyFZs0R0KjAafgdDH+PC90YW RgJF59cRRmaCPvg5wwyZs7XfRj QJTeCZY0eBqoZRsua9HrVWDv Q51voWDcj4N7AYQfoJuoqTPdKb FfkXU3bF9lGVujwdcnr9kcgwvb Nqdae1geas76cS49B09yKLpb EXGwOBOwNOOtHYRewGcoth9vbD 9wIi8+PVRtbPI5dHE7bY2bOAGq YnR1ZHhiY721FrLerICfSxsx h5aef5mgjOw5WyV8ECRkmvKarN rrNVQ9f3KjCu14X57qAWqvSEPm OYMtIZFgTYSxpEwmii7pnI0a Ii8+KXYbyPG1dAC5aF9sYtZlGk W0QZaaA639ZqUnyQQvMxydJ77z A3VxlNI+MFFrClq7IKOwlJlp DQ4xtTQpZBlbVs4rPIK9LsUuSb QdQHbzB3WwTPQzwbobvsdptHU8 ZAUlMNYztH82Ez1sqZiiOWXv gVGVhW7kwylqh3mvozjaOhDfRT QvROr9VLo3LVNqcMplPfEaDNR1 ToV1IBA1vCOvpA0hjPszglba cZ9tV2VoYDVhbayzLb54xE5tOd NiVwS8VJwqWto+G2GBE8HEMNpt Nn3EXWMLBf09S5BrSxv5ZOWa gHbrSW2ykJOiCSakGb7qmWxhfQ qyXZ8tWLMdqoomULXzyQ8qUMRp nHLuqMgnIP5dHFJljnhum893 HfFxSNQ8LUFpyLPiC3XirR4kZw GrFCWkMLWbK8AuaWJzQWsyX976 TCniFlX3HGUgsoGyS1BrVYNr xTkgQdQ5v2N9Lc7kWu1qXM0vPH d0UY53KP51jKNrw4Y9cUA0I7Xx RLMqopnoxzvsaLE4XIHmKVVe fR51qMTxDGmfGj8se0S7g197UP TnCGJryZ89Ce8wlQyzUUJqjJGR xL7rbnhlp2tzafveIsGlGLWf BNo1ARk9AVFneKyoVxIzTJW1Sg D1INH6tDMemZ5ibGvjchguoL9w Oyc+DzGiTMJgceR9J4HwLzh8 ICPjxBluKT1ibQLjLJqgOg8osS kzxTftKX2pDGQfnjmgTMTcnM6b PQCcrWJluDegZJ2oHYXtfhie d454DkVdSBO5ZZUckDIbG4WdkQ 5uGdMjTVXmEODbU4BenUZtVAfk Z949YGbwLlN7VBHirxYfK6Ky FQQdkBvtPuZ2s5E0Ai5XYK8FQD W5L9PzAtj9TXGsbZjwDM6ktIVy LNecQd7yeOvgxOdjWF5eEUGy ryxfFRSolV4rYOYwlGKmwYolQF 9bSLItedcrz453EvAnOWU1TFYz mFAfC6FglM8pYtKzJZEzISVw F4AjhEShTRwiH678FQiqPtF7TM YuroZpR4TjXRVxpVrnIeM8d6R5 Or3YBEuraTC+OH78mz94T1Hd RlrhRrl7WYBtJTS9lXB4eG2xWC VvLXztc4T8hBH0T8GrgjElif5v q5utYLSmIPwqQ12ypQXre9Q9 IBTirMS1YLIbrRdkAvZioK15Zs c+NCQbsUzif9RrEuzuy6ebu5xh gDf5MvSrKOPthmXehJwfMTL2 j3CnMs92C61sHWjuEMCjCVUpPC ZtLAYqeCwola7kiN0vBi7+PGNv uNK6zIF4eR5gPuIzVhE9XIfv V658ZaQcnAFkMvtto2tsj9ayjX u2TfJqPQNdyyCluWdvLNX4e2Sz Aj33F3NbbNaxx3TqYqy9gs85 uGNqx5D5aMB8F1FyUBRgshuxrD PzmAotXI6dCWMbqrtzFWLjlA6f DXAaT1w9XpJfEhC9RRveU1Ac jxJ3HVUwvHIxGNJheEZPrU7tyn ygp5rleqvfEeKmWLHtXXf7DJw2 NLWhjWbqNtVjSEV4YxN1JAE9 mDZngH3kaErhefvgvS5tKoo+UG l9f6ulyRCqCX6rjWZ1VY95TS52 xMYaf8W3wGH8H0GnBIRsalbw tvwmaMF6PUGjFVTebD06Ix5zeL qhAp4hBITeJWL2DZDbwXCtR5Aa oM5sWxEtLEWkWGPsJ9YugNIo FMifX307MOihMrZ0EBPgxqGbO6 SiANUiaSzfNdF5e8I1Le2YBN21 XR61SE48lBCyy1F0cBJ8H4Da FBCmaynxxtagqQW1HRQaFDGmwB 13Ko6jxDpjJd5wFTTlFCW3DEOm rTFoJ4FggJ2vPmZpNZJeVAId T2YduZSbAHaaS761PSaoRdO7GD HytsEaI1QcARSfzGelIrO0a6T7 Kh3IMa43RW74MT64kBHrh2A9 qFR8E4DkDLMldgmrcniolOS3IQ BtDXRzbZ97Su6jvAyoFw9ePSVw FEV6SQGlvSMsC0GerH5hQzLz TSMgQUMzA7ZanJDpUJxtA614RE jpMuV7LTLvswZcV9DlLCTroLiz ThN7i2E0Dj4RPWuzser9V2Nt PjwvdHI+HV86PHKfBL09rCUhfU Qah6sobTa7AeXfOEUlVFO1pWcj PSjqp0XrDUSaY23gcMAmc0M5 IGN (more content not included)... Normal [facility] Wound Cultureon 09-24-2023 Wound Culture Light growth [...] S <=4 Verified Tri/Sulf >2/38 Verified Normal [facility] Comment on above: Performed By: #### [id number] #### [facility] (DEFAULT) [address] [place] [id number] ED Clinical Summaryon 2023 ED Clinical Summary [facility] ? Urgent Care [address] [place] [address] Clinical Summary PERSON INFORMATION Name: BARON DE LEON Age: 23 Years Sex: FEMALE : 2000 MRN: Acct#: Visit Reason: UC - Laceration; LT FOOT LAC Arrival: 09/22/2023 09:25:10 Discharge: 09/22/2023 11:22:00 LOS: 000 01:57 Check In: 09/22/2023 09:25:10 Checkout: 09/22/2023 11:22:00 Address: [address] [place], [place] [id number] PCP: CRISTI ESTEBAN PROVIDER INFORMATION Provider Role [...] Medicine, Adult; Probiotics Follow-Up: With: Address: When: [facility] [place] [address] , only if needed Comments: The Urgent Care Center is open from 9am to 8pm daily. We are closed on , and . With: Address: When: CRISTI ESTEBAN [address] [place], [place] [id number] DIAGNOSIS: 1:Laceration of left foot without foreign body Patient Understands: Yes - Patient/family/caregiver verbalizes understanding of instructions given Comment: Normal [facility] ED Patient Summaryon 024 ED Patient Summary [facility] ? Urgent Care [address] [place], [place] [id number] PATIENT DISCHARGE INSTRUCTIONS Patient Information Name: BARON DE LEON Age: 23 Years Date of : 2000 Reason For Visit: UC - Laceration; LT FOOT LAC Arrival Time: 09/22/2023 09:25:10 Primary Care Physician: CRISTI ESTEBAN Attending Physician: Roxana Knott PA-C Comment: Patient Education With: Address: When: [facility] [address] [place] [id number] , only if needed Comments: The Urgent Care Center is open from 9am to 8pm daily. We are closed on , and . With: Address: When: CRISTI ESTEBAN [address] [place] [address] Nonsutured Laceration Care A laceration is a [...] and water are not available, use hand fish grader. 2. Remove any dressing as told by [...] these instructions at home: Medicines ? Take pelt-rok-atjfswn and prescription medicines only as told by [...] the dress (more content not included)... Normal [facility] Coding Summaryon 10-19-2022 Coding Summary HTMLBase 64 ZuytfbjiCWg2aVy+PGhlYWQ+PE 2FSIEvR62roPSpaX7iR1PHOSfN HkxlCXOPJBaMFqMohbDvPB6kxV NjZXJu IC8+NG2qWMZvVlpcbDXxn4D5iQ T2B31stv6pDUganTC9NTOkZmFl procf5ijgXg5XKdaWflkUeMq KGMdpU16NTL9wY94Ci27xQUfdE Nlq0hnvGs6JmYyEORcOKE8pMnr MFpik2IrHSTaE89iwIJnx9I1 MUQzjJybpRZoHrDdyMZ1qO3tAG jfjnrqs5bbrxkhSfv1kz26aXZl b8U1aAR3O7BrioZ0GTMhaZEh ObmzpHSAhO4mjbuju6zwdjfjOe MwZAOoZQs2RMm1UOSkkVkmOpFv IB13EZL0EFVxirCpY9BySQGz yYkqQcX0q4W4Ym6PK2DTDantB5 VNTUFSWTwvdGQ+TW05dw75N0Av JxrcFpl4VBDyOBN6tFL4wN3g DCPvIXfxg8L4tBF2G4HbtkBmyr 8ki1pgPSHgPXivA04lhRYlu9Y1 RDZksKM7UGHipGlqWvAubI93 Oyc+TWBvqTfzi7XtZxvse9pyj0 ahiUu9YergJISmrlOlpVxmZQB1 q2WvZm9eBAUzbCC2hIG7sA6q KnXrXgX7ISgpP877ZlFlxJDiDt yaK35yN4QzzAH+ZSKiDjs1LGEz wBjrDM1uV3VyOQRosmdxoBZc zCibYX1zJHTanbiqQLCjuN0yZS JpS8v9JhVvHfJ7VPjaX0AiHFPz yyguDl66uY3yHwBoZrW9IGyj I0CiuiD7ZLCnxHXoDTmkMWT3M9 5vu1S2ZBFwJMCyKFU6yDP0tU9f bGlnbjogbGVmdDsgdmVydGlj VWecXBjcL052XICjkEvhRnUvFZ luZyBEYXRlOiAgMDcvMTcvMjAy MzwvdGQ+PLMdFEW4wKufTEUh yQWmBXfvWr5nhAmmfBlwBK0yPV GoppwnUUCbzG3fCQMgdGBspWno LD2dRUPffcvye241NuRxSNZ2 USObhWGbC1LohT4oPlTvPMWiHZ YuD0ExkFJxAWcgH727YNrcUcL7 LJNdhiKvW6AmWMNnqTugFoC3 t4T7Sg2Hf4AobyckG2ZidXKqZl TvYxgiCQe1B7TqYreprHS+PC90 TONvHL20NYk7RVF0yDirTEth VIStN1CjrJ9tTmDuHITbJUBqQi c+PHRhYmxlIHdpZHRoPScxMDAl YaElxLdeTA1vGt6oKJMvONUp fVjvsQFpExFlh0hjZJZxQBmtZI 4gvMirQ8EvbAS5OEMfk7f9Lw18 B96hU6UzxZA+ZZUmoVE7hOT3 fZ3kZlGiWqJ0IYmjE016TyZktH AvCxfsk7ftr2rkqQf7YlW5MVHm jyLsmFyoHKI7u9XzJl84T30t IHdpZHRoPSIxNSUiIHZhbGlnbj 2zsJ2zHf8+XRCmnZC2hZP1tZ6l BuAnJuW7DHzxR326ZxGjqUWy Gepun7zzo8aedLs5JbXsTGTmtc WagNnyMOX4w8UvDw99T2NhoXbq u5QuOon3om63iMIeb8A2uLM2 S2BcWXIfhlywdHZicMacFW1yWF JlydwnTZOzfI2gMDEwI7g4NxSd OqU5VRdgG0MddmC4UWDrfNBf GHJxoHHEfQ2flqwsc4zyzayhKr ZjAAQiPQx3IXd1LDCetGirToNe KBY4PaJ4UMZ6dTKpyF8exYmh nvcqeQ1xWnb+OXF9gPRtpDSGBT 1lOjwvdGQ+XBEsMBT0iHrlHMrw FQAuwC8gAOYxP8w0PcVzNiX8 IMbmS7NfkvK1FQSxnNHmBLHdvS QBjV7iwkxdq2nkesreXzPiDUWe NMu6SMn4WFGbfSyvXsToEYW7 WgJ4JVO8qEGcvB6mmSzrocavhK 9wOyc+CjnfcLvaWZU1XHw0V1Rj Jgu9IUPriTqdJP5ypZCyRMai Aj4veJiahJcyIO3cLRKjqugdx4 39PiWaq3nfKYSzhFUiUFjkKIY6 K05rf9E0AQQoWMDhFUD8jHX5 vN7kkPnqamdleYQnpGsxdhNcfQ byGSonHOlmC033GSIrwPhwQcNq AGr7C0MjQfo6OFWopIsgIZ4u oEEvVSarCh4owFgasOccXH1cZT Qzfffns656WdZxz6etXWTadYDk RLzjSJN2M44dy0T8FMCtIXVq DLZ3eWI0fF9sqAxiuirjlWZraM hsvcMtsFgeWMsnCSxaI618ITVq uRxfHxQpnOz4G0WhWhh3YTYu tYsvPO6zgHBnOOigOr9xaWdicY owJU4oMKTpkwzxp864BaQht8bt GNLczAJlTAmgTIF1M40od7F1 FAKuUDMiLDG8jLI9jF7scVzssi ogbGVmdDsgdmVydGljYWwtYWxp S923YYRnzRddMwMutFitleRs ZWxtBTd6G7MsOyedqVG+PC90YW BcCO57oWVfaWLna2syzHc8LvQa GFTcAPW8bIggTGpus5GcFHCp C49hoLIyt7Q5FDVpjFxwwOTxYc UhsJQ0vV5nHFqxcojgx2xfoixn Etsam8dyer86rV46N93uKFht LJJbWJLjUZYoXHKmgOwtis8biZ 9wIi8+KGEbvTN2fUV7zW2cGARu UbT8AJbrK786GiLurTUfLwkb s4usg5lbsFu9GyU1MLDrdmWjpL ywVIH0e5WrWy06B04lPUeoLAJj HSOqJADxYYEaaXjgzb3txQ6f Ii8+EYVcyMD8rUZ9iC2pVuOqEg X8MNhuI360BiWjyEVqBoriX14z Y3YoiIA+HZYgLyy3HKLdoLqj MH1ktHHjCGzzNh6rSOP8CcNaMx EeYHyrS1CeWJCnqgpvluuhhYZ8 RLXaNFZpnM94Pz2sdBgmMDVs nCAJkC8mqbfeo4vxdvbcFwLjKU DtSWq7LZl6ITZdtBmcEqAeRUV9 LfP1BRR8nSXikV2ajHufzxbv xO2zT0WkAJYlviciOb58fD0aXw IsMrZ4OCdlIqi+I3HGW0HQDBnw Eu7VNJEEMc08U4OuMox6AGKw pPutBA0imGBzKGkwFb8tzBsjeV vgFT5mMZYryaryFRHkiH0sIBUr xELxhXzbZZ9hJHVmuxsrm768 KlXxJOR0TTAocEPtI8WyyG2tHy NdUPGvNGQkH6MrjPYsRXizI634 GKlmWbQ0TZByhhEiJ1IbRWWv jLseCyH9p7V1Rw8sIe3hWE9rDY h3OD82ZZ51fLVtn0U7aMM5T7Og IUJfbuaavduuxYM5MHSpGZId dQ67fBKuVBnpNk6bc2N9b360GY RqALMoyG35Mi7kcQwfSIHvrSXD cI7ivcmky8hxqcrwNbXvNESg ASi8PBp2ZGFyeNzpVuEpSHY7Jr F4DRP2sBFesV5nhAiuppvdhR2i Oyc+FmRmOVImxpP2W2QhHru3 ZVHmbNfnPZ9xyGFcRXqqNy5cbT tcfGicUQ0iFSTrubqvZFAprX2v QWEtiAXbnPrrDZ8hAUTgirje l588YgVrCAG0DGCuaHCsQ9XyxM 3zDpLnILJzDSTeB6RmvOFrSTdl I221HYjdLuV9UWYdcyGcZ6Pd YDBruQdxFmR8t0V3Ki7ENP0FVR J1Q0QvOot9AHFwdFopFO1imGJu MRrzFo7bnAkjiEteHT0mWHTv hqjkGTQmiX1oBDGuoJBwuVyhAN 7iSVJnnlndk058OcRsZBM5HYOe uKViR2XfjI6aFbSjCQAmORFd N8ZsrDKjCQosX994CCwxYnJ5KT UdmqVbL5BfYFWghNaqUgZ3t9B2 Lk0CLRdyfKE+LS25dg59F4Uw RkidGer6IYCwVGF2mZE5hW9tTX JvNBlpk1F1aHJ4L8SlwiJvml7c y9xaBEOpXXzsF50grKPsz7P3 VEVpjJP7TGYqhJwlCsJspG82Xj c+IPDxeYoqp4MjFdyny9kvn6mh mCw6UhCjBVEnsiPcvUicCFZ2 t1FbHa08Q37iCAwqVEKgRTMmOO LpFJJrqXvcbu6kqZ3rOi2+PGNv lFG0xWX3aA0lZcZiFhM1ROve E341NzNrnNLlRhzms1usb0gcoB f9QhDoNYKycsUccXrrRJI6h5Co Gq67R9OruVrqn7WnIyi1cn96 xBUiu9Z6pLV8T5CuLRBhcxwwxD FfbOywXS9uFCTgswpqTJIebV3a JZIiN9q7ZpEiWbL5AZqjU0Mz ygZ4CMBtdACyDTZbtTRIaH7mbc phm5iilusvDiXkOIYvQWu0EUj9 WDUutLsvWdCcIIC3DmT7TUX6 aTPhrS6mgHmeebuboS7jSkr+UG h9f0dftXCiQD7peBN5XH97ZU96 vTWob4C8uKE7H3OcUDTdsrjj bzdsgBG2FUUiYQVuwA84Xa4dhJ xiXs1qEBSxEBL1RASwcTDhL0Cq jE5qVqOnEIApAOZyT7GfeLXr UIpfG479MPgtEhG9JPLqzdYqV3 YePCTjlDpuIsP3x2P8Wi3GGW59 GX44UD03tFKkx6O0iXR6B6Ix IDLivvxpexnsrRD2FUSgCABblV 83Fr5ddWmeUl9aDFQhBGJ6LGSo kZOqK2WtdG3fPiKbVOXhLLXy X7OxnPQvDNwcS154EFxcFoW8CE IetkAsV4YjYXUplCdqUvS8g1K8 Bf3VMw89FC13NM11dVQae3K7 jIY9E0DxQBIyvozzzwmxqIN2TQ EaWYCanL80Jo6qoEckSv0oXRGm SKP1MKWxnSPiG0HgzI1uCzYw GUJqDQZpG0UztGYgBZjfL382UE oxJuK6PEJbaeDkE8OoKLOwtGat XaV5x3I9Bc6EZNeivjb7U7Na PjwvdHI+EZ37AOKoFY67uOSobQ Iqk9htxAu0NqZwWHLfRXG1wQcz FXryz3CjZUTuX43rnRFdc5L3 IGN (more content not included)... Normal [facility] CULTURE URINEon 05-08-2022 CULTURE URINE Culture Observations : MODERATE GROWTH OF MIXED GENITAL BLAYNE. NO POTENTIAL PATHOGENS SEEN. Normal [facility] Comment on above: Performed By: #### U RCX #### [facility] [address] [place] [id number] [address] Mima Leon UA RANDOM W/MICROSCOPICon BACTERIA NONE SEEN Normal NONE SEEN [facility] Comment on above: Performed By: #### U AMIC #### [facility] [address] [place], [place] [address] Dr. Mima Leon Bilirubin Ql (U) Negative Normal NEGATIVE The [facility] Comment on above: Performed By: #### U AMIC #### [facility] [address] [address] [address] Mima Leon CAST NONE SEEN Normal NONE SEEN [facility] Comment on above: Performed By: #### U AMIC #### [facility] [address] [place] [address] Dr. Mima Leon Clarity (U) CLEAR Normal CLEAR [facility] Comment on above: Performed By: #### U AMIC #### [facility] [address] [address] [address] Mima Leon Color (U) LT. YELLOW Normal YELLOW [facility] Comment on above: Performed By: #### U AMIC #### [facility] [address] [place] [address] Dr. Mima Leon Crystals LM Nom (Urine sed) NONE SEEN Normal NONE SEEN [facility] Comment on above: Performed By: #### U AMIC #### [facility] [address] [place] [address] Dr. Mima Leon Epithelial cells LM Ql (Urine sed) MODERATE Abnormal NONE SEEN /RARE [facility] Comment on above: Performed By: #### U AMIC #### [facility] [address] [place] [address] Dr. Mima Leon Glucose Ql (U) Negative Normal NEGATIVE The [facility] Comment on above: Performed By: #### U AMIC #### [facility] [address] [place] [address] Dr. Mima Leon Hemoglobin Ql (U) TRACE-LYSED Abnormal NEGATIVE The [facility] Comment on above: Performed By: #### U AMIC #### [facility] [address] [place] [address] Dr. Mima Leon Ketones Ql (U) Negative Normal NEGATIVE The [facility] Comment on above: Performed By: #### U AMIC #### [facility] [address] [place] [address] Dr. Mima Leon LEUKOCYTES Negative Normal NEGATIVE [facility] Comment on above: Performed By: #### U AMIC #### [facility] [address] [place] [address] Dr. Mima Leon MUCOUS NONE SEEN Normal NONE SEEN [facility] Comment on above: Performed By: #### U AMIC #### [facility] [address] [place] [address] Dr. Mima Leon Nitrite Ql (U) Negative Normal NEGATIVE The [facility] Comment on above: Performed By: #### U AMIC #### [facility] [address] [address] [address] Mima Leon pH (U) 6.0 [pH] Normal 5-9 [facility] Comment on above: Performed By: #### U AMIC #### [facility] [address] [place] [address] Dr. Mima Leon RBC 0-2 Normal 0-2 [facility] Comment on above: Performed By: #### U AMIC #### [facility] [address] [place] [address] Dr. Mima Leon SPEC GRAVITY <=1.005 Abnormal 1.005-<=1.025 [facility] Comment on above: Performed By: #### U AMIC #### [facility] [address] [place] [address] Dr. Mima Leon UA PROTEIN Negative Normal NEGATIVE/ TRACE [facility] Comment on above: Performed By: #### U AMIC #### [facility] [address] [place] [address] Dr. Mima Leon Urobilinogen Qn (U) 0.2 {Ami'U}/dL Normal 0.2 - 1.0 [facility] Comment on above: Performed By: #### U AMIC #### [facility] [address] [place] [address] Dr. Mima Leon WBC 0-2 Abnormal NONE SEEN [facility] Comment on above: Performed By: #### U AMIC #### [facility] [address] [place] [address] Dr. Mima Leon US KIDNEYSon 05-08-2022 US [...] ARMANDO SCHMITT Date: 2022-05-08 11:27 Normal [facility] XR KUB 1 VIEWon 05-08-2022 XR [...] ARMANDO SCHMITT Date: 2022-05-08 11:50 Normal [facility] CA 125on 03-20-2022 Cancer Antigen (CA) 125 32.3 U/mL Normal 0.0-38.1 [facility] Comment on above: Result Comment: [employer] Electrochemiluminescence Immunoassay (ECLIA) . Values obtained with different assay methods or kits cannot be used interchangeably. Results cannot be interpreted as absolute evidence of the presence or absence of malignant disease. Performed By: #### C A 125 #### [facility] [address] [place] [address] Dr. Mima Leon CA 19-9on 03-20-2022 CA 19-9 <2 Normal 0-35 [facility] Comment on above: Result Comment: [employer] Electrochemiluminescence Immunoassay (ECLIA) . Values obtained with different assay methods or kits cannot be used interchangeably. Results cannot be interpreted as absolute evidence of the presence or absence of malignant disease. Performed By: #### C A 19,9 ####[facility] [id number] [address]Dr. Mima Leon CEAon 03-20-2022 CEA 0.6 ng/mL Normal 0.0-4.7 [facility] Comment on above: Result Comment: Nons mokers <3.9 Smokers <5.6 . [employer] Electrochemiluminescence Immunoassay (ECLIA) . Values obtained with different assay methods or kits cannot be used interchangeably. Results cannot be interpreted as absolute evidence of the presence or absence of malignant disease. Performed By: #### C EA. #### [facility] [address] [place] [address] Dr. Mima Leon H PYLORI ANTIBODY IGGon 03-05 H. PYLORI IGG ABS 0.25 Index Value Normal 0.00-0.79 [facility] Comment on above: Result Comment: Nega tive <0.80 Equivocal 0.80 - 0.89 Positive >0.89 Performed By: #### H PYLLC ####[facility] [id number] [address]Dr. Mima Leon INSULINon 03-20-2022 Insulin 8.0 uIU/mL Normal 2.6-24.9 [facility] Comment on above: Performed By: #### I NSULIN #### [facility] [address] [place] [address] Dr. Mima Leon AMYLASEon 03-19-2022 Amylase [Catalytic activity/Vol] 90 U/L Normal 25-115 [facility] Comment on above: Performed By: #### C MP, TSH, T7, CYNTHIA, LIPID, LIPA #### [facility] [address] [place] [address] Dr. Mima Leon CBC AUTO DIFFon 03-19-2022 BASO # 0.0 103/ul Normal 0.0-0.1 [facility] Comment on above: Performed By: #### C BC #### [facility] [address] [place] [address] Dr. Mima Leon Basophils/100 WBC (Bld) 0.6 % Normal 0.2-2.0 [facility] Comment on above: Performed By: #### C BC #### [facility] [address] [place] [address] Dr. Mima Leon EO # 0.1 103/ul Normal 0.0-0.7 [facility] Comment on above: Performed By: #### C BC #### [facility] [address] [place] [address] Dr. Mima Leon Eosinophils/100 WBC (Bld) 1.5 % Normal 0.9-7.0 [facility] Comment on above: Performed By: #### C BC #### [facility] [address] [place] [address] Dr. Mima Leon Erythrocyte distribution width (RBC) [Ratio] 12.1 % Normal 11.0-15.0 [facility] Comment on above: Performed By: #### C BC #### [facility] [address] [place] [address] Dr. Mima Leon Hematocrit (Bld) [Volume fraction] 42.7 % Normal 36.0-48.0 [facility] Comment on above: Performed By: #### C BC #### [facility] [address] [place] [address] Dr. Mima Leon Hemoglobin (Bld) [Mass/Vol] 14.7 g/dL Normal 12.0-16.0 [facility] Comment on above: Performed By: #### C BC #### [facility] [address] [place] [address] Dr. Mima Leon IG # 0.01 10e3/ul Normal 0.00-0.03 [facility] Comment on above: Performed By: #### C BC #### [facility] [address] [place] [address] Dr. Mima Leon IG % 0.2 % Normal 0.0-0.5 [facility] Comment on above: Performed By: #### C BC #### [facility] [address] [place] [address] Dr. Mima Leon LYMPH # 2.9 103/ul Normal 1.2-3.8 [facility] Comment on above: Performed By: #### C BC #### [facility] [address] [place] [address] Dr. Mima Leon Lymphocytes/100 WBC (Bld) 47.6 % Normal 20.5-60.0 [facility] Comment on above: Performed By: #### C BC #### [facility] [address] [place] [address] Dr. Mima Leon MANUAL DIFF REQ NO Normal [facility] Comment on above: Performed By: #### C BC #### [facility] [address] [place] [address] Dr. Mima Leon MCH (RBC) [Entitic mass] 31.4 pg Normal 26.7-34.0 [facility] Comment on above: Performed By: #### C BC #### [facility] [address] [place] [address] Dr. Mima Leon MCHC (RBC) [Mass/Vol] 34.4 g/dL Normal 29.9-35.2 [facility] Comment on above: Performed By: #### C BC #### [facility] [address] [place] [address] Dr. Mima Leon MCV (RBC) [Entitic vol] 91.2 fL Normal 81.0-99.0 [facility] Comment on above: Performed By: #### C BC #### [facility] [address] [place] [address] Dr. Mima Leon MONO # 0.4 103/ul Normal 0.3-0.8 [facility] Comment on above: Performed By: #### C BC #### [facility] [address] [place] [address] Dr. Mima Leon Monocytes/100 WBC (Bld) 5.8 % Normal 1.7-12.0 [facility] Comment on above: Performed By: #### C BC #### [facility] [address] [place] [address] Dr. Mima Leon NEUT # 2.7 103/ul Normal 1.4-6.5 [facility] Comment on above: Performed By: #### C BC #### [facility] [address] [address] [address] Mima Leon Neutrophils/100 WBC (Bld) 44.3 % Normal 43.0-75.0 [facility] Comment on above: Performed By: #### C BC #### [facility] [address] [address] [address] Mima Leon Platelet mean volume (Bld) [Entitic vol] 8.9 fL Critically low 9.5-13.5 [facility] Comment on above: Performed By: #### C BC #### [facility] [address] [place] [address] Dr. Mima Loen PLT 257 103/ul Normal 150-450 [facility] Comment on above: Performed By: #### C BC #### [facility] [address] [address] [address] Mima Leon RBC 4.68 106/ul Normal 4.20-5.40 [facility] Comment on above: Performed By: #### C BC #### [facility] [address] [address] [address] Mima Leon WBC 6.2 103/ul Normal 4.0-11.0 [facility] Comment on above: Performed By: #### C BC #### [facility] [address] [address] [address] Mima Leon FREE THYROXINE INDEX T7on FTI 3.59 Normal 1.30-4.50 [facility] Comment on above: Performed By: #### C MP, TSH, T7, CYNTHIA, LIPID, LIPA ####[facility] [address] [address]Dr. Mima Leon T3U 37.0 % Normal 30.0-39.0 [facility] Comment on above: Performed By: #### C MP, TSH, T7, CYNTHIA, LIPID, LIPA ####[facility] [address] [id number]. Mima Leon T4 [Mass/Vol] 9.70 ug/dL Normal 4.80-13.90 [facility] Comment on above: Performed By: #### C MP, TSH, T7, CYNTHIA, LIPID, LIPA ####[facility] [address] [place], [place] [address]HdDr. Mima Leon GLYCOHEMOGLOBIN A1Con 2021 ADA RECOMMENDATION SEE BELOW Normal [facility] Comment on above: Result Comment: ADA RECOMMENDED LIMIT 4.0 - 6.0 ADA THERAPEUTIC TARGET < 7.0 ACTION SUGGESTED > 7.0 Performed By: #### A 1C #### [facility] [address] [address] [address] Mima Leon Glucose [Mass/Vol] 97 mg/dL Normal [facility] Comment on above: Performed By: #### A 1C #### [facility] [address] [address] [address] Mima Leon HbA1c (Bld) [Mass fraction] 5.0 % Normal 4.5-6.2 [facility] Comment on above: Performed By: #### A 1C #### [facility] [address] [address] [address] Mima Leon IRONon 03-19-2022 Iron [Mass/Vol] 115.0 ug/dL Normal 50.0-170.0 [facility] Comment on above: Performed By: #### I TROY #### [facility] [address] [address] [address] Mima Leon LIPASEon 03-19-2022 Lipase [Catalytic activity/Vol] 176.0 U/L Normal 73.0-393.0 [facility] Comment on above: Performed By: #### C MP, TSH, T7, CYNTHIA, LIPID, LIPA ####[facility] [address] [place], [place] [address]SyDr. Mima Leon LIPID PROFILEon 03-19-2022 CHOL-HDL RATIO NORM SEE BELOW Normal [facility] Comment on above: Result Comment: 3.3 - 4.4 LOW RISK 4.4 - 7.1 AVERAGE RISK 7.1 - 11.0 MODERATE RISK >11.0 HIGH RISK Performed By: #### C MP, TSH, T7, CYNTHIA, LIPID, LIPA ####[facility] [address] [id number]. Mima Leon Cholesterol [Mass/Vol] 168 mg/dL Normal <=200 [facility] Comment on above: Performed By: #### C MP, TSH, T7, CYNTHIA, LIPID, LIPA ####[facility] [address] [address]Dr. Mima Leon Cholesterol in HDL [Mass/Vol] 60 mg/dL Normal 40-60 [facility] Comment on above: Performed By: #### C MP, TSH, T7, CYNTHIA, LIPID, LIPA ####[facility] [address] [address]Dr. Mima Leon Cholesterol in LDL [Mass/Vol] 85.0 mg/dL Normal [facility] Comment on above: Performed By: #### C MP, TSH, T7, CYNTHIA, LIPID, LIPA ####[facility] [address] [address]Dr. Mima Leon Cholesterol.total /Cholesterol in HDL [Mass ratio] 2.8 {ratio} Normal [facility] Comment on above: Performed By: #### C MP, TSH, T7, CYNTHIA, LIPID, LIPA ####[facility] [address] [address]Dr. Mima Leon HDL NORMAL > or = 60 mg/dl - LO W CARDIOVASCULAR RISK <40 mg/dl - HIGH CARDIOVASCULAR RISK Normal [facility] Comment on above: Performed By: #### C MP, TSH, T7, CYNTHIA, LIPID, LIPA ####[facility] [address] [address]Dr. Mima Leon LDL CALC NORMAL SEE BELOW Normal [facility] Comment on above: Result Comment: <100 mg/dl OPTIMAL 100 - 129 mg/dl NEAR OR ABOVE OPTIMAL 130 - 159 mg/dl BORDERLINE HIGH 160 - 189 mg/dl HIGH >190 mg/dl VERY HIGH Performed By: #### C MP, TSH, T7, CYNTHIA, LIPID, LIPA ####[facility] [address] [address]Dr. Mima Leon Triglyceride [Mass/Vol] 115 mg/dL Normal <=150 [facility] Comment on above: Performed By: #### C MP, TSH, T7, CYNTHIA, LIPID, LIPA ####[facility] [address] [address]Dr. Mima Leon VLDL CALC 23.0 mg/dL Normal [facility] Comment on above: Performed By: #### C MP, TSH, T7, CYNTHIA, LIPID, LIPA ####[facility] [address] [address]Dr. Mima Leon PROF 14(COMP METB)on 022 Albumin [Mass/Vol] 3.8 g/dL Normal 3.4-5.0 [facility] Comment on above: Performed By: #### C MP, TSH, T7, CYNTHIA, LIPID, LIPA ####[facility] [address] [address]Dr. Mima Leon Albumin/Globulin [Mass ratio] 1.0 {ratio} Normal [facility] Comment on above: Performed By: #### C MP, TSH, T7, CYNTHIA, LIPID, LIPA ####[facility] [address] [address]Dr. Mima Leon ALP [Catalytic activity/Vol] 69 U/L Normal 46-116 [facility] Comment on above: Performed By: #### C MP, TSH, T7, CYNTHIA, LIPID, LIPA ####[facility] [address] [address]Dr. Mima Leon ALT [Catalytic activity/Vol] 24 U/L Normal 14-59 [facility] Comment on above: Performed By: #### C MP, TSH, T7, CYNTHIA, LIPID, LIPA ####[facility] [address] [address]Dr. Mima Leon Anion gap [Moles/Vol] 15.1 mmol/L Normal [facility] Comment on above: Performed By: #### C MP, TSH, T7, CYNTHIA, LIPID, LIPA ####[facility] [address] [address]Dr. Mima eLon AST [Catalytic activity/Vol] 19 U/L Normal 15-37 [facility] Comment on above: Performed By: #### C MP, TSH, T7, CYNTHIA, LIPID, LIPA ####[facility] [address] [address]Dr. Mima Leon Bilirubin [Mass/Vol] 0.6 mg/dL Normal 0.2-1.0 [facility] Comment on above: Performed By: #### C MP, TSH, T7, CYNTHIA, LIPID, LIPA ####[facility] [address] [address]Dr. Mima Leon Calcium [Mass/Vol] 9.0 mg/dL Normal 8.5-10.1 [facility] Comment on above: Performed By: #### C MP, TSH, T7, CYNTHIA, LIPID, LIPA ####[facility] [address] [address]Dr. Mima Leon Chloride [Moles/Vol] 100 mmol/L Normal 98-107 [facility] Comment on above: Performed By: #### C MP, TSH, T7, CYNTHIA, LIPID, LIPA ####[facility] [address] [address]Dr. Mima Leon CO2 [Moles/Vol] 25.6 mmol/L Normal 21.0-32.0 [facility] Comment on above: Performed By: #### C MP, TSH, T7, CYNTHIA, LIPID, LIPA ####[facility] [address] [address]Dr. Mima Leon Creatinine [Mass/Vol] 0.78 mg/dL Normal 0.55-1.02 [facility] Comment on above: Performed By: #### C MP, TSH, T7, CYNTHIA, LIPID, LIPA ####[facility] [address] [address]Dr. Mima Leon EGFR-AF SWEDISH >60 Normal >=60 [facility] Comment on above: Performed By: #### C MP, TSH, T7, CYNTHIA, LIPID, LIPA ####[facility] [address] [address]Dr. Mima Leon EGFR-NON AF SWEDISH >60 Normal >=60 [facility] Comment on above: Performed By: #### C MP, TSH, T7, CYNTHIA, LIPID, LIPA ####[facility] [address] [address]Dr. Mima Leon Globulin (S) [Mass/Vol] 3.7 g/dL Normal [facility] Comment on above: Performed By: #### C MP, TSH, T7, CYNTHIA, LIPID, LIPA ####[facility] [address] [address]Dr. Mima Leon Glucose [Mass/Vol] 91 mg/dL Normal 74-106 [facility] Comment on above: Performed By: #### C MP, TSH, T7, CYNTHIA, LIPID, LIPA ####[facility] [address] [address]Dr. Mima Leon Potassium [Moles/Vol] 3.7 mmol/L Normal 3.5-5.1 [facility] Comment on above: Performed By: #### C MP, TSH, T7, CYNTHIA, LIPID, LIPA ####[facility] [address] [address]Dr. Mima Leon Protein [Mass/Vol] 7.5 g/dL Normal 6.4-8.2 [facility] Comment on above: Performed By: #### C MP, TSH, T7, CYNTHIA, LIPID, LIPA ####[facility] [address] [place], [place] [address]Dr. Mima Leon Sodium [Moles/Vol] 137 mmol/L Normal 136-145 [facility] Comment on above: Performed By: #### C MP, TSH, T7, CYNTHIA, LIPID, LIPA ####[facility] [address] [place], [place] [address]Dr. Mima Leon Urea nitrogen [Mass/Vol] 10.0 mg/dL Normal 7.0-18.0 [facility] Comment on above: Performed By: #### C MP, TSH, T7, CYNTHIA, LIPID, LIPA ####[facility] [address] [place], [place] [address]Rk. Mima Leon Urea nitrogen/Creatini ne [Mass ratio] 12.8 mg/mg Normal [facility] Comment on above: Performed By: #### C MP, TSH, T7, CYNTHIA, LIPID, LIPA ####[facility] [address] [place], [place] [address]Xx. Mima Leon TSHon 03-19-2022 TSH 4.160 uIU/mL Critically high 0.358-3.740 [facility] Comment on above: Performed By: #### C MP, TSH, T7, CYNTHIA, LIPID, LIPA ####[facility] [address] [place], [place] [address]Ia. Mima Leon CBC with differentialon 08-03 Erythrocyte distribution width (RBC) [Ratio] 12.7 % 11.0 - 16.3 % [employer] Hematocrit (Bld) [Volume fraction] 44.9 % 31.1 - 57.4 % [employer] Hemoglobin (Bld) [Mass/Vol] 15.5 g/dL 13.0 - 17.0 g/dL [employer] Interpretation and review of laboratory results Abnormal [employer] Lymphocyte # POCT 1.5 [employer] Lymphocytes/100 WBC (Bld) 16.1 % Low 25 - 57 % [employer] MCH POCT 32.1 [employer] MCHC (RBC) [Mass/Vol] 34.5 g/dL 32.7 - 36.7 g/dL [employer] MCV POCT 93.0 [employer] MPV POCT 8.6 [employer] MXD # POCT 0.8 [employer] MXD % POCT 8.1 % 1.2 - 11.4 % [employer] Neutrophil # POCT 7.1 [employer] Neutrophils/100 WBC (Bld) 75.8 % High 37 - 75 % [employer] Platelet Ab Ql (S) 235 K/uL 166 - 400 K/uL [employer] RBC POCT 4.83 [employer] WBC POCT 9.[address] [employer] [address] ABDOMEN PELVIS WO CONTRAS Ton 08-12-2021 [...] exam. -------- FINAL REPORT -------- Dictated By: Usamn Nayak Dictated Date: 08/12/2021 08:28 Assigned Physician: Usman Nayak Reviewed and Electronically Signed By: Usman Nayak Signed Date: 08/12/2021 08:38 Workstation ID: [id number] Transcribed By: Self Edit Transcribed Date: 08/12/2021 08:[address] [facility] CT Pelvis limited WO contras ton 08-12-2021 [...] By: Self Edit Transcribed Date: 08/12/2021 08:28 [employer] EXAMINATION TYPE: CT ABDOMEN PELVIS WO CONTRAST [...] no radiopaque stone Bones: Normal for age. [employer] Usman Nayak MD - 08/12/2021 EXAMINATION TYPE: [...] By: Self Edit Transcribed Date: 08/12/2021 08:28 [facility] Radiology Study observation (narrative) [facility] CT Pelvis limited WO contras tOrdered By: Usman Nayak on 08-12-2021 [employer] Work Phone: HCG ( test) Ql (U)o n 08-12-2021 Beta HCG ( test) Ql (U) Negative Negative [facility] Beta HCG ( test) Ql (U) Yes Yes [facility] Interpretation and review of laboratory results Normal [facility] POCT BASIC METABOLIC PROFILE on 08-12-2021 Calcium [Mass/Vol] 9.0 mg/dL Normal 8.9-10.[address] [facility] Comment on above: Performed By: #### L [id number] #### [facility] ([facility] [address] [place] [address] Chloride [Moles/Vol] 103 mmol/L Normal 98-[address] [facility] Comment on above: Performed By: #### L [id number] #### [facility] ([facility]) [facility] [address] [place] [address] CO2 [Moles/Vol] 25 mmol/L Normal 22-32 [facility] Comment on above: Performed By: #### L [id number] #### [facility] ([facility] [address] [place] [address] Creatinine [Mass/Vol] 0.8 mg/dL Normal 0.6-1.[address] [facility] Comment on above: Performed By: #### L [id number] #### [facility] ([facility] [address] [place] [address] GFR/1.73 sq M.predicted among non-blacks MDRD (S/P/Bld) [Vol rate/Area] mL/min/{1.73_m2} Normal >60 mL/min/1.73m* [address] [facility] Comment on above: Performed By: #### L [id number] #### [facility] ([facility] [address] [place] [address] Glucose [Mass/Vol] 97 mg/dL Normal 70-[address] [facility] Comment on above: Performed By: #### L [id number] #### [facility] ([facility] [address] [place] [address] Potassium [Moles/Vol] 4.0 mmol/L Normal 3.6-5.[address] [facility] Comment on above: Performed By: #### L [id number] #### [facility] ([facility] [address] [place] [address] Sodium [Moles/Vol] 139 mmol/L Normal 136-[address] [facility] Comment on above: Performed By: #### L [id number] #### [facility] [place] ([facility]) [facility] [address] [place] [address] Urea nitrogen [Mass/Vol] 6 mg/dL Low 8-[address] [facility] Comment on above: Performed By: #### L [id number] #### [facility] ([facility] [address] [place] [address] POCT Basic metabolic profile on 08-12-2021 Calcium [Mass/Vol] 9.0 mg/dL 8.9 - 10.3 mg/dL [facility] Chloride [Moles/Vol] 103 mmol/L 98 - 107 mmol/L [facility] CO2 [Moles/Vol] 25 mmol/L 22 - 32 mmol/L [facility] Creatinine [Mass/Vol] 0.8 mg/dL 0.6 - 1.3 mg/dL [facility] GFR/1.73 sq M.predicted MDRD (S/P/Bld) [Vol rate/Area] mL/min/{1.73_m2} >60 mL/min/1.73m* 2 mL/min/1.73m* 2 [facility] Glucose [Mass/Vol] 97 mg/dL 70 - 99 mg/dL [facility] Interpretation and review of laboratory results Abnormal [facility] Potassium [Moles/Vol] 4.0 mmol/L 3.6 - 5.1 mmol/L [facility] Sodium [Moles/Vol] 139 mmol/L 136 - 145 mmol/L [facility] Urea nitrogen [Mass/Vol] 6 mg/dL Low 8 - 20 mg/dL [facility] POCT CBC WITH DIFFERENTIALon 08-12-2021 Erythrocyte distribution width (RBC) [Ratio] 12.7 % Normal 11.0-16.[address] [facility] Comment on above: Performed By: #### L [id number] #### [facility] ([facility] [address] [place] [address] Hematocrit (Bld) [Volume fraction] 44.9 % Normal 31.1-57.[address] [facility] Comment on above: Performed By: #### L [id number] #### [facility] ([facility] [address] [place] [address] Hemoglobin (Bld) [Mass/Vol] 15.5 g/dL Normal 13.0-17.[address] [facility] Comment on above: Performed By: #### L [id number] #### [facility] ([facility] [address] [place] [address] Lymphocytes (Bld) [#/Vol] 1.5 10*3/uL Normal 1.0-4.[address] [facility] Comment on above: Performed By: #### L [id number] #### [facility] ([facility] [address] [place] [address] Lymphocytes/100 WBC (Bld) 16.1 % Low 25-[address] [facility] Comment on above: Performed By: #### L [id number] #### [facility] ([facility] [address] [place] [address] MCH POCT 32.1 pcg Normal 27.4-35.[address] [facility] Comment on above: Performed By: #### L [id number] #### [facility] ([facility] [address] [place] [address] MCHC (RBC) [Mass/Vol] 34.5 g/dL Normal 32.7-36.[address] [facility] Comment on above: Performed By: #### L [id number] #### [facility] ([facility] [address] COUNTS INCLUDE [facility]S AT THE [facility] [address] [place] [address] MCV (RBC) [Entitic vol] 93.0 fL Normal 82.5-102.[address] [facility] Comment on above: Performed By: #### L [id number] #### [facility] ([facility] [address] COUNTS INCLUDE 234 [facility]S AT THE [facility] [address] [place] [address] MXD # POCT 0.8 K/mcL Normal 0.1-1.[address] [facility] Comment on above: Performed By: #### L [id number] #### [facility] ([facility] [address] [place] [address] MXD % POCT 8.1 % Normal 1.2-11.[address] [facility] Comment on above: Performed By: #### L [id number] #### [facility] ([facility] [address] [place] [address] Neutrophils (Bld) [#/Vol] 7.1 10*3/uL Normal 1.8-7.[address] [facility] Comment on above: Performed By: #### L [id number] #### [facility] ([facility] [address] [place] [address] Neutrophils/100 WBC (Bld) 75.8 % High 37-[address] [facility] Comment on above: Performed By: #### L [id number] #### [facility] [place] ([facility]) [facility] [address] [place] [address] Platelet mean volume (Bld) [Entitic vol] 8.6 fL Normal 8.5-13.[address] [facility] Comment on above: Performed By: #### L [id number] #### [facility] [address] [place] [address] Platelet POCT 235 K/uL Normal 166-400 [facility] Comment on above: Performed By: #### L [id number] #### [facility] [address] [place] [address] RBC (Bld) [#/Vol] 4.83 10*6/uL Normal 4.30-5.[address] [facility] Comment on above: Performed By: #### L [id number] #### [facility] ([facility] [address] [place] [address] WBC (Bld) [#/Vol] 9.4 10*3/uL Normal 4.5-13.[address] [facility] Comment on above: Performed By: #### L [id number] #### [facility] ([facility] [address] [place] [address] POCT LIVER PROFILEon 022 Albumin [Mass/Vol] 3.7 g/dL Normal 3.5-4.[address] [facility] Comment on above: Performed By: #### L [id number] #### [facility] [place] ([facility] [address] [place] [address] ALP POCT 66 units/L Normal 32-[address] [facility] Comment on above: Performed By: #### L [id number] #### [facility] ([facility] [address] [place] [address] ALT [Catalytic activity/Vol] 13 U/L Normal 7-[address] [facility] Comment on above: Performed By: #### L [id number] #### [facility] ([facility] [address] [place] [address] Amylase [Catalytic activity/Vol] 55.0 U/L Normal 26-[address] [facility] Comment on above: Performed By: #### L [id number] #### [facility] ([facility] [address] [place] [address] AST [Catalytic activity/Vol] 23 U/L Normal 15-[address] [facility] Comment on above: Performed By: #### L [id number] #### [facility] ([facility] [address] [place] [address] Bilirubin [Mass/Vol] 0.8 mg/dL Normal 0.3-1.[address] [facility] Comment on above: Performed By: #### L [id number] #### [facility] ([facility] [address] [place] [address] GGT POCT 13 unit/L Normal 7-[address] [facility] Comment on above: Performed By: #### L [id number] #### [facility] ([facility] [address] [place] [address] Total Protein POCT 7 g/L Normal 6.1-7.[address] [facility] Comment on above: Performed By: #### L [id number] #### [facility] ([facility] [address] [place] [address] POCT Liver profileon 022 Albumin BCP dye (Bld) [Mass/Vol] 3.7 g/dL 3.5 - 4.8 g/dL [employer] ALP POCT 66 [employer] ALT [Catalytic activity/Vol] 13 U/L [employer] Amylase POCT 55.0 [employer] AST [Catalytic activity/Vol] 23 U/L [employer] Bilirubin [Mass/Vol] 0.8 mg/dL 0.3 - 1.2 mg/dL [employer] GGT POCT 13 [employer] Interpretation and review of laboratory results Normal [employer] Protein [Mass/Vol] 7 g/L 6.1 - 7.9 g/L [facility] Urinalysis macro (dipstick) panel (U)on 08-12-2021 Bilirubin Urine POCT Negative Normal Negative [facility] Comment on above: Performed By: #### 2 4357-6 #### [facility] [place] ([facility] LAB [address] [place] [address] Blood Urine POCT Trace-lysed Abnormal Negative [facility] Comment on above: Performed By: #### 2 4357-6 #### [facility] [place] [facility] [address] [place] [address] Clarity Urine POCT Clear Normal Clear [facility] Comment on above: Performed By: #### 2 4357-6 #### [facility] [place] [facility] [address] [place] [address] Color Urine POCT Yellow Normal Yellow, Lig ht Yellow [facility] Comment on above: Performed By: #### 2 4357-6 #### [facility] [place] [facility] [address] [place] [address] Glucose Urine POCT Negative Normal Negative [facility] Comment on above: Performed By: #### 2 4357-6 #### [facility] [place] [facility] [address] [place] [address] Ketones Urine POCT Negative Normal Negative [facility] Comment on above: Performed By: #### 2 4357-6 #### [facility] [place] [facility] [address] [place] [address] Leukocyte Esterase POCT Small Abnormal Negative [facility] Comment on above: Performed By: #### 2 4357-6 #### [facility] [place] [facility] [address] [place] [address] Nitrite POCT Negative Normal Negative [facility] Comment on above: Performed By: #### 2 4357-6 #### [facility] [place] [facility] [address] [place] [address] pH Urine POCT 5.5 Normal 5.0-8.5 [facility] Comment on above: Performed By: #### 2 4357-6 #### [facility] [place] [facility] [address] [place] [address] Protein Urine POCT Negative Normal Negative [facility] Comment on above: Performed By: #### 2 4357-6 #### [facility] [place] [facility] [address] [place] [address] Specific [place] Urine POCT 1.025 Normal 1.005-1.[address] [facility] Comment on above: Performed By: #### 2 4357-6 #### [facility] [place] [facility] [address] [place] [address] Urobilinogen POCT 0.2 EU/dL Normal 0.2 - 1.0 [facility] Comment on above: Performed By: #### 2 4357-6 #### [facility]DIS[facility] [place] [address] [place] [address] Bilirubin Ql (U) Negative Negative [employer] Blood Visual Ql (U) Trace-lysed Abnormal Negative eryth/mcL [employer] Clarity (U) Clear Clear [employer] Color (U) Yellow Yellow, Light Yellow [facility] Color (U) Small Abnormal Negative [employer] Color (U) 5.5 [employer] Glucose Test strip (U) [Mass/Vol] Negative Negative mg/dL [employer] Interpretation and review of laboratory results Abnormal [employer] Ketones (U) [Mass/Vol] Negative Negative mg/dL [employer] Nitrite (Unsp spec) [Mass/Vol] Negative Negative [employer] Protein (U) [Mass/Vol] Negative Negative mg/dL [employer] Specific gravity (U) [Rel density] 1.025 [employer] Urobilinogen Qn (U) 0.2 {Ami'U}/dL 0.2 - 1.0 [facility] XR SPINE LUMBOSACRAL 5 VIEWS on [...] spinal instability with flexion or extension Normal [facility] XR Spine Lumbar and Sacrum 5 Viewson [...] No spinal instability with flexion or extension [facility] Radiology Study observation (narrative) [facility] XR Spine Lumbar and Sacrum 5 ViewsOrdered By: Vivian Del Castillo on 07-30-[address] [facility] Work Phone: POC COVID-FLU SOFIAon 2020 INTERNAL CONTROLS Acceptable Normal [facility] Comment on above: Performed By: #### P [id number] #### [facility], [address] [address] RAPID INFLUENZA A AGN Negative Normal Negative [facility] Comment on above: Performed By: #### P [id number] #### [facility], [address] [address] RAPID INFLUENZA B AGN Negative Normal Negative [facility] Comment on above: Performed By: #### P [id number] #### [facility], [address] [address] ALISE SARS ANTIGEN Positive Abnormal Presumptive Negative [facility] Comment on above: Performed By: #### P [id number] #### [facility], [address] [address] POC Influenza A/B and SARS A ntigen manually resultedon 04-02-2021 FLUAV Ag IA.rapid Ql (Nph) Negative Negative [facility] FLUBV Ag IA.rapid Ql (Nph) Negative Negative [facility] INTERNAL CONTROLS Acceptable [facility] Interpretation and review of laboratory results Abnormal [facility] SARS-CoV+SARS-CoV -2 (COVID-19) Ag IA.rapid Ql (Resp) Positive Abnormal Presumptive Negative [facility] POCT RAPID STREP Aon 021 INTERNAL CONTROLS Acceptable Normal [facility] Comment on above: Performed By: #### P [id number] #### [facility], [address] [address] STREP A ANTIGEN Negative Normal Negative [facility] Comment on above: Performed By: #### P [id number] #### [facility], [address] [address] S. pyogenes Ag IA.rapid Ql ( Throat)on 04-02-2021 INTERNAL CONTROLS Acceptable [facility] Interpretation and review of laboratory results Normal [facility] S. pyogenes Ag Ql (Unsp spec) Negative Negative [facility] STREP A CULTURE, THROATon STREP A CULTURE, THROAT CULTURE: 468NORMAL MICROBIOTA 4+ Normal microbiota Normal [facility] Comment on above: Performed By: #### L [id number] #### [facility] [address] [place] [address] [place] CBC WITH AUTO DIFFERENTIALon 04-05-2018 Basophils [...] Ql (U) Negative Invalid Interpretation Code Negative [facility] Clarity, UA Turbid Abnormal Clear [facility] Color Auto Nom (U) [place] Abnormal Yellow, Light Yellow, Dark Yellow [facility] Glucose Ql (U) Negative Invalid Interpretation Code Normal, Negative mg/dL [facility] Hemoglobin Test strip Ql (U) Moderate Abnormal Negative [facility] Interpretation and review of laboratory results Abnormal Invalid Interpretation Code [facility] Ketones Ql (U) Negative Invalid Interpretation Code Negative mg/dL [facility] Leukocyte esterase Test strip Ql (U) Large Abnormal Negative [facility] Nitrite Test strip Ql (U) Positive Abnormal Negative [facility] pH Test strip (U) 6.0 [pH] Invalid Interpretation Code [facility] Protein Test strip Ql (U) 100 Abnormal Negative mg/dL [facility] Specific gravity Relative Density (U) 1.[address] [facility] Urobilinogen Test strip Qn (U) 0.2 mg/dL Invalid Interpretation Code <2.0, 0.2, Normal, Negative, 1.0, 2.0, <1.0 [facility] Vital Signs Date Time Vital Sign Value Performing Clinician Facility 08-12-2021 07:26-0400 Body temperature 98.4 [degF] Brandi Mcneill MD Work Phone: [facility] 08-12-2021 07:26-0400 Diastolic blood pressure 88 mm[Hg] Brandi Mcneill MD Work Phone: [facility] 08-12-2021 07:26-0400 Heart rate 95 /min Brandi Mcneill MD Work Phone: [facility] 08-12-2021 07:26-0400 Respiratory rate 18 /min Brandi Mcneill MD Work Phone: [facility] 08-12-2021 07:26-0400 SaO2% (BldA) [Mass fraction] 100 % Brandi Mcneill MD Work Phone: [facility] 08-12-2021 07:26-0400 Systolic blood pressure 135 mm[Hg] Brandi Mcneill MD Work Phone: [facility] 08-12-2021 07:26-0400 Body height 170.2 cm Brandi Mcneill MD Work Phone: [facility] 08-12-2021 07:26-0400 Body mass index (BMI) [Ratio] 18.79 kg/m2 Brandi Mcneill MD Work Phone: [facility] 08-12-2021 07:260400 Body weight 54.43 kg Brandi Mcneill MD Work Phone: [facility] 07-30-2021 13:16-0400 Body height 168.9 cm Vita Ballesteros MD Work Phone: [facility] 07-30-2021 13:16-0400 Body mass index (BMI) [Ratio] 20.99 kg/m2 Vita Ballesteros MD Work Phone: [facility] 07-30-2021 13:16-0400 Body temperature 97 [degF] Vita Ballesteros MD Work Phone: [facility] 07-30-2021 13:16-0400 Body weight 59.88 kg Vita Ballesteros MD Work Phone: [facility] 07-30-2021 13:16-0400 Heart rate 66 /min Vita Ballesteros MD Work Phone: [facility] 07-30-2021 13:16-0400 SaO2% (BldA) [Mass fraction] 98 % Vita Ballesteros MD Work Phone: [facility] 04-02-2021 14:21-0500 Body temperature 98.29 [degF] Osmani Jett MD Work Phone: [facility] 04-02-2021 14:21-0500 Body weight 54.48 kg Osmani Jett MD Work Phone: [facility] 04-02-2021 14:21-0500 Diastolic blood pressure 91 mm[Hg] Osmani Jett MD Work Phone: [facility] 04-02-2021 14:21-0500 Heart rate 108 /min Osmani Jett MD Work Phone: [facility] 04-02-2021 14:21-0500 Respiratory rate 18 /min Osmani Jett MD Work Phone: [facility] 04-02-2021 14:21-0500 SaO2% (BldA) [Mass fraction] 99 % Osmani Jett MD Work Phone: [facility] 04-02-2021 14:21-0500 Systolic blood pressure 146 mm[Hg] Osmani Jett MD Work Phone: [facility] 04-05-2018 12:44-0500 BP Diastolic 59 mm[Hg] [...] 19:46-0500 BMI (Body Mass Index) 20.36 kg/m2 [facility] 04-02-2018 19:46-0500 Body Temperature 97.5 [degF] [facility] 04-02-2018 19:46-0500 BP Diastolic 82 mm[Hg] [facility] 04-02-2018 19:46-0500 BP Systolic 114 mm[Hg] [facility] 04-02-2018 19:46-0500 Height 170.2 cm [facility] 04-02-2018 19:46-0500 Pulse (Heart Rate) 79 /min [facility] 04-02-2018 19:46-0500 Pulse Oximetry 97 % [facility] 04-02-2018 19:46-0500 Respiratory Rate 18 /min [facility] 04-02-2018 19:46-0500 Weight 58.97 kg [facility] Encounters Encounter Date Encounter Type Care Provider Facility Start: 09-22-2023 End: 09-22-2023 ambulatory CRISTI ESTEBAN Facility:[facility] Start: 09-09-2023 End: 09-09-2023 ambulatory ISAC SETH Not Available Start: 05-08-2022 End: 05-09-[address] CRISTI ESTEBAN . Facility: Start: 03-19-2022 End: 03-20-[address] CRISTI ESTEBAN . Facility: Start: 08-12-2021 End: 08-12-2021 Emergency department patient visit BRANDI MCNEILL [facility] Start: 08-12-2021 End: 08-12-2021 Emergency department patient visit Brandi Mcneill MD Work Phone: [facility] Comment on above: Flank pain (Primary Dx) Start: 08-12-2021 End: 08-12-2021 Evaluation and management of inpatient Brandi Mcneill MD Work Phone: [facility] Start: 07-30-2021 ambulatory VITA BALLESTEROS Facility:[facility] Start: 07-30-2021 End: 07-30-2021 Office consultation new/estab patient 60 min Vita Ballesteros MD Work Phone: [facility] Comment on above: Low back pain, unspe cified back pain laterality, unspecified chronicity, unspecified whether sciatica present (Primary Dx); Lumbar degenerative disc disease Start: 07-26-2021 ambulatory VITA BALLESTEROS Facility:[facility] Start: 04-02-2021 End: 04-02-2021 ambulatory OSMANI JETT [facility] Start: 04-02-2021 End: 04-02-2021 Office outpatient visit 15 minutes Osmani Jett MD Work Phone: [facility] Comment on above: COVID-19 (Primary Dx ) Start: 04-05-2018 End: 04-05-2018 Emergency department patient visit PHYSICIAN KALE [facility] Start: 04-05-2018 End: 04-05-2018 Emergency department patient visit Saroj Harris Work Phone: [facility] Comment on above: Acute UTI (Primary D x) Start: 04-02-2018 End: 04-02-2018 Patient encounter procedure PHYSICIAN KALE [facility] Start: 04-02-2018 End: 04-02-2018 Office outpatient new 20 minutes Milagros Martinezwell Work Phone: [facility] Comment on above: Urinary tract infect ion [...] Phone: Start: 04-02-2021 POC COVID-FLU ALISE Osmani Jett MD Work Phone: Start: 04-02-2021 Iaadiadoo streptococcus [...] 2) Zoste r Vaccines (1 of 2) [facility] Start: 12-04-2021 Influenza vaccination INFLUENZ A VACCINE (Season Ended) [facility] Start: 08-12-2021 Adolescent depressio n screening assessment Depression Screening [facility] Start: 08-12-2021 Hepatitis C screening Hepatitis C Sc reening [facility] Start: 08-12-2021 HIV screening HIV Screening [facility] Start: 08-12-2021 Lipid panel Cholesterol Sc reening (Lipid Panel) [facility] Start: 08-12-2021 Screening for Chlamy buddy trachomatis Gonorrhea/Chlamydia Screening [facility] Start: 08-12-2021 Social Influencers o f Health Screening Social Influencers of Health Screening [facility] Start: 02-06-2021 COVID-19 VACCINE (3 - Booster for Pfizer series) COVID-19 VACCINE (3 - Booster for Pfizer series) [facility] Start: 12-04-2020 Influenza vaccination Influenza Vacc ine (#1) [facility] Start: 05-08-2020 DTaP,Tdap,and Td Vac cines (7 - Td or Tdap) DTaP,Tdap,and Td Vaccines (7 - Td or Tdap) [facility] Start: 05-08-2020 Tetanus vaccination TETANUS EVERY [address] [facility] Start: 09-07-2019 Screening for malign ant neoplasm of cervix [facility] Start: 12-04-2017 Influenza vaccination SEQUENTI AL INFLUENZA VACCINE (#1) [facility] Start: 2017 DTaP/Tdap/Td Vaccine s (1 - Tdap) DTaP/Tdap/Td Vaccines (1 - Tdap) [facility] Start: 2017 Third diphtheria, te tanus and acellular pertussis (DTaP) vaccination TDAP (ADULT) [facility] Start: 2016 Tetanus vaccination TETANUS [facility] Start: 2014 Screening for Chlamy buddy trachomatis CHLAMYDIA SCREEN [facility] Start: 2013 HIV screening HIV SCREENING DISCUSSION [facility] Start: 2009 HPV Vaccines (1 - 2- dose series) HPV Vaccines (1 - 2-dose series) [facility] Start: 2009 Vaccination for azalea n papillomavirus [facility] Start: 2004 PNEUMOCOCCAL VACCINE SERIES (1 - PCV) PNEUMOCOCCAL VACCINE SERIES (1 - PCV) [facility] Start: 09-07-2003 COVID-19 Vaccine (1) COVID-19 Vaccin e (1) [facility] Start: 1998 GONORRHEA SCREEN GONORRHEA SCREEN [facility] Start: 1998 Hepatitis C antibody , confirmatory test HEPATITIS C VIRUS SCREENING [facility] Start: 1998 Hepatitis C screening Hepatitis C Sc reening [facility] Start: 1998 HIV screening HIV Screening [facility] Start: 1998 Tetanus vaccination TETANUS EVERY [address] [facility] End: 04-05-2018 Bacteria identified Aer cx Nom (Unsp spec) Urine Aerobic Culture Routine Once for 1 Occurrences starting 04/05/2018 until 04/05/2018 [facility] Comment on above: Once for 1 Occurrenc es starting 04/05/2018 until 04/05/2018 Streptococcus pyogen es Ag [Presence] in Throat by Rapid immunoassay Strep A culture, throat Microbiology Routine COVID-19 04/02/2021 2:52 PM EST [facility] Work Phone: Payers Date Payer Category Payer Private Health Insurance [facility] [id number] 2021-Present [address] [address] [place] [address] [id number] 2020 Unknown [id number] 2016 Unknown [id number] 1998 Unknown [id number]. [id number] 1998 Unknown [id number]. [id number] 1998 Unknown [id number]. [id number] 1998 Unknown [id number]. [id number] 1998 Unknown [id number]. [id number] 1998 Unknown [id number]. [id number] 1998 Unknown [id number]. [id number] 1998 Unknown [id number]. 2.1259 1998 Unknown [id number] [id number] 1959 Unknown [id number] 1959 Unknown [id number] Social History Date Type Detail Facility Start: 04-02-2018 End: 08-12-2021 Tobacco smoking status NHIS Never smoker [facility] Start: 2000 [facility] Start: 04-02-2021 End: 07-30-2021 Tobacco use and exposure Never used [facility] Start: 04-02-2021 End: 08-12-2021 Alcohol intake Current drinker of alcohol (finding) [facility] Exposure to SARS-CoV-2 (event) Yes [facility] Start: 07-30-2021 Tobacco smoking status NHIS Smokes tobacco daily [facility] Start: 07-30-2021 History SDOH Alcohol Comment occassionally [facility] Start: 08-12-2021 Tobacco use and exposure User of smokeless tobacco [facility] Start: 08-02-2021 End: 08-12-2021 Exposure to SARS-CoV-2 (event) Not sure [facility] Clinical Note 09-22-2023 Note Date & [...] If you have (more content not included)... [facility] History of Present illness Narrative 08-12-2021 Aretha Cole RN - 08/12/2021 7:31 AM EDT Note Date & Type Note Facility 08-12-2021 History of Presen t illness Narrative Recently dx with kid stones to right side pt here for increased pain to right flank. Pt currently on ATB for kid stones documented in this encounter [facility] History of Present illness Narrative 07-30-2021 [...] for Visit : low back pain Occupation: [employer] HPI: Patient is a 20 y.o. right [...] spelling or grammatical issues. Please use the [employer] Secure Chat for correspondences. [id number] for emergent issues. Thank you! documented in this encounter [facility] History of Present illness Narrative 04-02-2021 Osmani [...] WITH SOME RELIEF. documented in this encounter [facility] Instructions 04-02-2021 Patient Instructions Note Date [...] at least 20 seconds. Alcohol based hand wall cleaner can be used if soap and [...] services right away. Last Reviewed: June 2020 [facility] Medical Review Board Luis E Bojorquez MD Updated: 07/05/2020 [facility] documented in this encounter [facility] Evaluation note Note Date & Type Note Facility Evaluation note Diagnosis COVID-19- Primary documented in this encounter [facility] Evaluation note Note Date & Type Note Facility Evaluation note Diagnosis Low back pain, unspecified back pain laterality, unspecified chronicity, unspecified whether sciatica present- Primary Lumbar degenerative disc disease Degeneration of lumbar or lumbosacral intervertebral disc Low back pain, unspecified back pain laterality, unspecified chronicity, unspecified whether sciatica present documented in this encounter [facility] Evaluation note Note Date & Type Note Facility Evaluation note Diagnosis Flank pain- Primary Abdominal pain, unspecified site documented in this encounter [facility] Discharge instructions Attachments Note Date & Type Note [facility] Discharge instructions The following attachments cannot be sent through Care Everywhere.Flank Pain (Sinhala)documented in this encounter [facility] Instructions * Patient Instructions - Milagros [...] Log into your personal health record on [email or web address] and enter K848 in the Education box to learn more about Urinary Tract Infection in Women: Care Instructions. Current as of: June 22, 2017 Content Version: 11.9 1142-9701 [email or web address]. Care instructions adapted under license by your healthcare professional. If you have questions about a medical condition or this instruction, always ask your healthcare professional. [email or web address] disclaims any warranty or liability for your use of this information. in this encounter History of Present Illness * Milagros Liu MD - 04/02/2018 8:17 PM EST Formatting of this note may be different from the original. PATIENT NAME: Baron De Leon 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 Current as of: June 22, 2017 Content Version: [id number] [email or web address]. Care instructions adapted under license by your healthcare professional. If you have questions about a medical condition or this instruction, always ask your healthcare professional. [email or web address] disclaims any warranty or liability for your use of this information. in this encounter Reason for Referral Specialty Diagnoses / Procedures Referred By Erik robert Referred To Contact Physical Medicine & Rehabilitation Diagnoses Lumbar degenerative disc disease Vita Ballesteros MD [address] [place] [phone] Referral ID Status Reason Start Date Expiration Date V isits Requested Visits Authorized [id number] New Request 07/30/2021 08/24/2022 1 1 Specialty Diagnoses / Procedures Referred By Contac t Referred To Contact Diagnoses Low back pain, unspecified back pain laterality, unspecified chronicity, unspecified whether sciatica present Procedures QUESTIONNAIRE SERIES Vita Ballesteros MD [address] [place] [address] Referral ID Status Reason Start Date Expiration Date V isits Requested Visits Authorized [id number] New Request 07/28/2021 08/22/2022 1 1 Additional [...] Diagnoses Lumbar pain Cristi Esteban MD [address] [place] [address] Referral ID Status Reason Start Date Expiration Date V isits Requested Visits Authorized [id number] Pending Review 07/26/2021 08/20/2022 1 1 INFORMATION SOURCE (unrecogn ized section and content) DATE CREATED AUTHOR 04/03/2018 [facility] DATE CREATED AUTHOR AUTHOR'S ORGANIZ ATION 04/07/2018 [facility] DATE CREATED AUTHOR AUTHOR'S ORGANIZ ATION 04/05/2021 [facility] DATE CREATED AUTHOR AUTHOR'S ORGANIZ ATION 08/05/2021 [facility] DATE CREATED AUTHOR AUTHOR'S ORGANIZ ATION 08/13/2021 [facility] DATE CREATED AUTHOR AUTHOR'S ORGANIZ ATION 08/19/2022 [facility] pital DATE CREATED AUTHOR AUTHOR'S ORGANIZ ATION 09/11/2023 [facility] EPIC DATE CREATED AUTHOR [...] Saroj Harris DO, FACOEP-D ED Attending Physician [facility] Emergency Department (Please note that portions of this note have been completed with a voice recognition software. Efforts were made to correct any errors, but occasionally words are mis-transcribed.) Patient is resting comfortably. Call light within reach. Patient updated on continued plan of care. Formatting of this note may be different from the original. [facility] ED Resident Note: NAME: Baron De Leon 17 y.o. 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 Denies N/V/D/F/vaginal bleeding or discharge. RR even/unlabored. In NAD. Bed: 36 Expected date: Expected time: Means of arrival: Comments:in this encounter Care Teams (unrecognized sec tion and content) Citizen Participation Specialist Relationship Specialty Start Date End Date Cristi Esteban MD [address] [phone] PCP - General Family Medicine 07/28/21 Citizen Participation Specialist Relationship Specialty Start Date End Date Cristi Esteban MD [address] [facility] [place] [id number] [phone] PCP - General Family Medicine 08/12/21 FOR [...] BE BASED ON THE PRIMARY CLINICAL RECORDS. [facility]. provides no warranty or guarantee of the accuracy or completeness of information in this document.
[2024-02-28 16:23] LABS: Basophils Percent Auto 0.8 % (0.2-2.0); Eosinophils Absolute Auto 0.1 10^3/uL (0.0-0.7); Eosinophils Percent Auto 2.7 % (0.9-7.0); Hematocrit 42.6 % (36.0-48.0); Immature Granulocytes Abs Auto 0.01 10^3/uL (0.00-0.03); Immature Granulocytes Pct Auto 0.2 % (0.0-0.5); Lymphocytes Absolute Auto 2.2 10^3/uL (1.2-3.8); Lymphocytes Percent Auto 44.9 % (20.5-60.0); Mean Corpuscular HGB Conc 35.2 g/dL (29.9-35.2); Mean Corpuscular Volume 93.6 fL (81.0-99.0); Mean Platelet Volume 8.9 fL (9.5-13.5); Monocytes Absolute Auto 0.3 10^3/uL (0.3-0.8); Neutrophils Absolute Auto 2.2 10^3/uL (1.4-6.5); Neutrophils Percent Auto 44.4 % (43.0-75.0); Platelet Count 219 10^3/uL (150-450); Red Blood Count 4.55 10^6/uL (4.20-5.40); Red Cell Distribution Width 11.7 % (11.0-15.0); White Blood Count 4.9 10^3/uL (4.0-11.0)
[2024-02-28 16:33] LABS: Estimated Average Glucose 97 mg/dL
[2024-02-28 16:54] LABS: Alanine Aminotransferase 15 U/L (14-59); Albumin Level 3.8 g/dL (3.4-5.0); Alkaline Phosphatase 87 U/L (46-116); Anion Gap 15.3; Aspartate Amino Transferase 13 U/L (15-37); Bilirubin Total 0.5 mg/dL (0.2-1.0); Calcium 9.3 mg/dL (8.5-10.1); Carbon Dioxide 25.7 mmol/L (21.0-32.0); Chloride 105 mmol/L (98-107); Estimated GFR (African America >60 (>=60 mL/min/1.73m^2); Estimated GFR (Non-African Ame >60 (>=60 mL/min/1.73m^2); Free T3 2.57 pg/mL (2.18-3.98); Globulin 3.8 g/dL; Glucose 89 mg/dL (74-106); Sodium 142 mmol/L (136-145); Thyroid Stimulating Hormone 1.554 uIU/mL (0.358-3.740); Total Protein 7.6 g/dL (6.4-8.2)
== END 2024-02-28 16:12 | disposition home or self-care (01) ==
LOC: LAB 16:13
PROVIDERS: PCP Family Medicine; Visit Provider Family Medicine
DX: Z00.00 Encounter for general adult medical examination without abnormal findings (principal)
CPT/HCPCS: 36415; 80053; 83036; 84436; 84443; 84481; 85025

== ENCOUNTER 2024-06-30 14:25 | Outpatient (OUT) | payer OTHER, SELFPAY ==
--- NOTE | 2024-06-30 14:28 | CT_ITS ---
The [address] [address] Patient Name: BARON JONES MRN: [id number] date: 2000 Sex: F Assigned Patient Location: CT Current Patient Location: CT Accession/Order Number: [id number] Exam Date: 06/30/2024 15:50 Report Date: 06/30/2024 15:53 At the request of: CRISTI BARNETT MD Procedure: CT sinus wo con CT PARANASAL SINUSES WITHOUT CONTRAST: CLINICAL HISTORY: Sinusitis COMPARISON: None TECHNIQUE: Contiguous axial unenhanced images were obtained through the paranasal sinuses. Coronal reconstructions were also performed. This CT exam was performed using one or more following dose reduction techniques: Automated exposure control, adjustment of the mA and/or kV according to patient size, or use of iterative reconstruction technique. FINDINGS: Complete opacification of the right frontal sinus. Left frontal sinus appears clear. Moderate ethmoid sinus disease. Near-complete opacification of the maxillary sinuses. Sphenoid sinuses are clear. Ostiomeatal complexes are occluded. No bony destruction or air-fluid levels. Nasal septum is deviated towards the left. Visualized mastoid air cells appear pneumatized without focal abnormality. No soft tissue swelling. Intraorbital contents appear unremarkable. Nasopharynx appears grossly unremarkable. CT/CT sinus wo con IMPRESSION: PANSINUSITIS WITHOUT AGGRESSIVE FEATURES. Impression dictated by: Bill Yeung Jr., D.O.06/30/2024 3:53 PM Dictation Location: [place] [address] Electronically authenticated by: [id number] Y Date: 06/30/2024 15:53
== END 2024-06-30 14:26 | disposition home or self-care (01) ==
LOC: CT 14:26
PROVIDERS: PCP Family Medicine; Visit Provider Family Medicine
DX: J32.9 Chronic sinusitis, unspecified (principal)
CPT/HCPCS: 70486

== ENCOUNTER 2024-07-19 14:34 | Outpatient (OUT) | payer OTHER, SELFPAY ==
[2024-07-19 15:23] LABS: Anion Gap 8.5; BUN Creatinine Ratio 6.5; Calcium 8.1 mg/dL (8.5-10.1); Carbon Dioxide 31.6 mmol/L (21.0-32.0); Chloride 105 mmol/L (98-107); Estimated GFR (African America >60 (>=60 mL/min/1.73m^2); Estimated GFR (Non-African Ame >60 (>=60 mL/min/1.73m^2); Glucose 83 mg/dL (74-106); Potassium 3.1 mmol/L (3.5-5.1); Sodium 142 mmol/L (136-145)
== END 2024-07-19 14:35 | disposition home or self-care (01) ==
LOC: LAB 14:36
PROVIDERS: PCP Family Medicine; Visit Provider Otolaryngology
DX: R60.9 Edema, unspecified (principal)
CPT/HCPCS: 36415; 80048